=== PATIENT | female | born 1995 | race Caucasian/White ===

== ENCOUNTER 2024-06-06 14:45 | Emergency (ER) | payer OTHER, SELFPAY ==
[2024-06-06 15:05] VITALS: BP 135/90; PULSE 76; RESP 20; TEMP 36.2; O2SAT 100
--- NOTE | 2024-06-06 15:19 | ED.NECK ---
HPI - Neck Pain/Injury General Chief Complaint: Neck Pain/Injury Stated Complaint: neck pain Source: patient Mode of arrival: ambulatory Limitations: no limitations History of Present Illness HPI Narrative: 28 year female presented for complaint of left-sided neck pain. Onset 6 days. Endorses the pain radiates down to the hand and causes a tingling sensation at times. Has taken Tylenol and alternating ice/heat for pain. She states the pain was brought on when she had a severe coughing fit last week. Denies weakness, numbness or decreased range of motion to the upper extremities. Rates pain 7/10, and says it is not improving. Related Data Allergies Allergy/AdvReac Type Severity Reaction Status Date / Time No Known Allergies Allergy Verified 06/06/24 15:05 Review of Systems Review of Systems: CONSTITUTIONAL: Denies body aches, fever, chills, or sweats. EYES: Denies visual changes, redness, or discharge. ENT: Denies rhinorrhea, congestion, sore throat, or otalgia. CARDIOVASCULAR: Denies chest pain, palpitations, or edema. SKIN: Denies rash, itching, or wounds. MUSCULOSKELETAL: reports neck pain NEUROLOGIC: Denies headache, numbness, or weakness. All systems reviewed & are unremarkable except as noted in HPI and below PMFSH Comments At time of signature, I have reviewed and agree with nursing past medical, surgical, social and family history unless otherwise noted. Please see nursing chart for further information. There is no relevant family history pertinent to the presenting complaint Exam Narrative: GENERAL: Well-appearing,and in no acute distress. EYES: EOMI. No redness or drainage. Conjunctivae normal. ENT: Mucous membranes pink and moist. No rhinorrhea. NECK: slightly decreased AROM due to pain. No vpt. Nontender trapezius. CHEST: Clear to auscultation. HEART: Regular rate and rhythm. Normal peripheral pulses. EXTREMITIES: Normal range of motion. CMS intact to BUEs. SKIN: Warm, dry, no rash. Capillary refill normal. Normal skin turgor. NEURO: No focal deficits. Alert and oriented x3. Gait steady. PSYCH: Normal affect. Course Course Emergency Course: Patient is aware of diagnosis, understands and agrees to treatment plan. Anticipatory guidance given. Patient agrees to follow-up as directed and is aware of reasons to seek care at the emergency department. Portions of this record may have been created with voice recognition software Level of Care: Express Care Visit Vital Signs Vital signs: Vital Signs Temperature 97.2 F L 06/06/24 15:05 Pulse Rate 76 06/06/24 15:05 Respiratory Rate 20 06/06/24 15:05 Blood Pressure 135/90 06/06/24 15:05 Pulse Oximetry 100 06/06/24 15:05 Oxygen Delivery Room Air 06/06/24 15:05 Temperature 97.2 F L 06/06/24 15:05 Pulse Rate 76 06/06/24 15:05 Respiratory Rate 20 06/06/24 15:05 Blood Pressure 135/90 06/06/24 15:05 Pulse Oximetry 100 06/06/24 15:05 Oxygen Delivery Room Air 06/06/24 15:05 MDM - Neck Pain/Injury MDM Narrative Medical decision making narrative: Discussed physical exam findings. Advised supportive measures and signs/symptoms to go to the ER. Pt is appropriate for outpt treatment and f/u. Differential Diagnosis Differential diagnosis: Likely disc disorder of cervical region, whiplash injury to neck, closed subluxation of cervical spine, cervical radiculopathy, torticollis and strain of neck muscle Discharge Plan Discharge Clinical Impression: Cervical radiculopathy Patient Disposition: Home, Self-Care Condition: Stable Instructions: Cervical Radiculopathy (ED) Additional Instructions: Rest. Avoid pushing, pulling, lifting or anything that worsens the symptoms Tylenol 1000mg every 8 hours as needed Take the steroid as directed Cyclobenzaprine (Flexeril) is a muscle relaxer. Take it as directed. It can cause drowsiness so do not drive or operate machinery until you know how it makes you feel. Alternate ice/heat to the site. Lidocaine or salon pas pain patch or use pain cream like icy/hot or biofreeze. (do not apply ice/heat over pain cream or patch) Follow up with your primary care provider as needed Go to the ER for worsening symptoms or concerns Patient Language: Macedonian Prescriptions: New cyclobenzaprine 10 mg tablet 10 mg PO TID PRN (Reason: muscle spasm) Qty: 10 0RF methylprednisolone [Medrol (Omar)] 4 mg tablets,dose pack See Rx Instructions .ROUTE .COMPLEX Qty: 21 0RF Rx Instructions: orally per package directions Follow-up/Referrals: JAYY,PASCUAL SIM [Primary Care Provider] - Time of Disposition: 15:22
--- OUTSIDE RECORDS SUMMARY | 2024-06-06 17:37 | XMS_ITS | Data Portability ---
Author Organization [employer] , [facility] Address [address] [place] [address] Assessment No assessment recorded. Plan of Treatment Reminders Order Date Submit Date Provider Last Modified By Organization Details Last Modified Time Details Appointments None recorde dKrysta Lab CMP, serum or plasma 2021 [employer] [facility], [address] [place], [address], 13:56:59 uric acid, serum or plasma 2021 [facility], [address] [place], [address], 13:56:59 protein :creati nine ratio, urine 2021 [facility], [address] [place], [address], 2 13:57:00 CBC w/ auto diff 2021 [facility], [address] [place], [address], 2 13:57:00 ldh, serum or plasma 2021 [facility] [employer] [facility], [address] [place], [address], 13:56:58 CMP, serum or plasma 2021 022 [facility], [address] [place], [address], 2 23:11:06 uric acid, serum or plasma 2021 022 [email or web address] [facility] [facility] [facility], [address] [place], [address], 2 11:51:17 CBC w/ auto diff 2021 022 [facility], [address] [place], [address], 2 22:47:02 protein :creati nine ratio, urine 2021 022 [email or web address] [facility] [facility], [address] [place], [address], 2 11:51:17 ldh, serum or plasma 2021 022 [facility], [address] [place], [address], 2 11:51:17 CMP, serum or plasma 2021 022 [facility], [address] [place], [address], 2 07:06:21 CBC w/ auto diff 2021 022 [facility], [address] [place], [address], 2 07:06:22 protein :creati nine ratio, urine 2021 022 [facility], [address] [place], [address], 2 13:38:05 Referral None recorde d. Procedures None recorde d. Surgeries None recorde d. Imaging US, obstetr ic, biophys ical profile + non-str ess test 2021 022 [email or web address] [facility], [address] [place], [address], 21:01:39 US, obstetr ic, biophys ical profile 2021 022 [email or web address] [facility], [address] [facility], [place], [address], 13:43:40 US, obstetr ic, biophys ical profile 2021 022 [email or web address] [facility], [address] [place], [address], 15:43:22 Medication Orders Prenata l Vitamin s with Mineral s 28 mg iron-80 0 mcg tablet 2021 022 [employer] [id number], [address], [place], [id number], 12:07:10 Patient TargetsNo targets recorded. Patient Instructions Encounter Date Encounter Id Patient Instructions Last Modified By Organization Details Last Modified Time 02/13/2022 [id number] Care at Home With Your Baby: Care Instructions edgar Not available 02/17/2022 12:08:19 edinburgh depression scale* [email or web address] Not available 03/21/2022 15:22:28 control after counseling [email or web address] [employer] Not available 02/17/2022 12:08:18 Reason for Referral None Reported. Results Created Date Observation Date Name Description Value Unit Range Abnormal Flag Note LastModifiedBy Organization Detail LastModifiedTime 11/29/1911/29/2021 URIC ACID uric acid 3.6 mg/dL 2.5-7. 0 normal Thera peslime stroud t for gout patie nts: <6.0 mg/dL Not Available [email or web address] [facility] [address] [place], [address], 11/29/2021 14:11:01 11/29/19 22 11/29/2021 COMPR EHENS STEVE METAB OLIC PANEL glucose 73 mg/dL 65-99 normal Fasti ng refer ence inter carson Not Available [address], [address], 11/29/2021 14:11:02 11/29/19 22 11/29/2021 COMPR EHENS STEVE METAB OLIC PANEL urea nitrogen (BUN) 8 mg/dL 7-25 normal Not Available [address], [address], 11/29/2021 14:11:02 11/29/19 22 11/29/2021 COMPR EHENS STEVE METAB OLIC PANEL creatinine 0.58 mg/dL 0.50-0 .96 normal Not Available [address], [address], 11/29/2021 14:11:02 11/29/19 22 11/29/2021 COMPR EHENS STEVE METAB OLIC PANEL eGFR 127 mL/mi n/1.7 3m2 > or = 60 normal The eGFR is based on the CKD-E PI 2020 equat ion. To calcu late the new eGFR from a previ ous Creat inine or Cysta tin C resul t, go to https :[email or web address] [email or web address]/pierce cason s/ kdoqi /gfr% 5Fcal culat or Not Available [address], [address], 11/29/2021 14:11:02 11/29/19 22 11/29/2021 COMPR EHENS STEVE METAB OLIC PANEL BUN/creatini ne ratio NOT APPLIC ABLE (calc ) 6-22 Not Available [address], [address], 11/29/2021 14:11:02 11/29/19 22 11/29/2021 COMPR EHENS STEVE METAB OLIC PANEL sodium 139 mmol/ L 135-14 6 normal Not Available [address], [address], 11/29/2021 14:11:02 11/29/19 22 11/29/2021 COMPR EHENS STEVE METAB OLIC PANEL potassium 4.0 mmol/ L 3.5-5. 3 normal Not Available [address], [address], 11/29/2021 14:11:02 11/29/19 22 11/29/2021 COMPR EHENS TSEVE METAB OLIC PANEL chloride 106 mmol/ L 98-110 normal Not Available [address], [address], 11/29/2021 14:11:02 11/29/19 22 11/29/2021 COMPR EHENS STEVE METAB OLIC PANEL carbon dioxide 21 mmol/ L 20-32 normal Not Available [address], [address], 11/29/2021 14:11:02 11/29/19 22 11/29/2021 COMPR EHENS STEVE METAB OLIC PANEL calcium 9.4 mg/dL 8.6-10 .2 normal Not Available [address], [address], 11/29/2021 14:11:02 11/29/19 22 11/29/2021 COMPR EHENS STEVE METAB OLIC PANEL protein, total 6.7 g/dL 6.1-8. 1 normal Not Available [address], [address], 11/29/2021 14:11:02 11/29/19 22 11/29/2021 COMPR EHENS STEVE METAB OLIC PANEL albumin 3.7 g/dL 3.6-5. 1 normal Not Available [address], [address], 11/29/2021 14:11:02 11/29/19 22 11/29/2021 COMPR EHENS STEVE METAB OLIC PANEL globulin 3.0 g/dL_ (calc ) 1.9-3. 7 normal Not Available [address], [address], 11/29/2021 14:11:02 11/29/19 22 11/29/2021 COMPR EHENS STEVE METAB OLIC PANEL albumin/glob ulin ratio 1.2 (calc ) 1.0-2. 5 normal Not Available [address], [address], 11/29/2021 14:11:02 11/29/19 22 11/29/2021 COMPR EHENS STEVE METAB OLIC PANEL bilirubin, total 0.4 mg/dL 0.2-1. 2 normal Not Available [address], [address], 11/29/2021 14:11:02 11/29/19 22 11/29/2021 COMPR EHENS STEVE METAB OLIC PANEL alkaline phosphatase 83 U/L 31-125 normal Not Available [address], [address], 11/29/2021 14:11:02 11/29/19 22 11/29/2021 COMPR EHENS STEVE METAB OLIC PANEL AST 17 U/L 10-30 normal Not Available [address], [address], 11/29/2021 14:11:02 11/29/19 22 11/29/2021 COMPR EHENS STEVE METAB OLIC PANEL ALT 13 U/L 6-29 normal Not Available [address], [address], 11/29/2021 14:11:02 11/29/19 22 11/29/2021 CBC (INCL UDES DIFF/ PLT) white blood cell count 9.3 thous and/u L 3.8-10 .8 normal Not Available [address], [address], 11/29/2021 14:11:02 11/29/19 22 11/29/2021 CBC (INCL UDES DIFF/ PLT) red blood cell count 4.08 feliciano on/uL 3.80-5 .10 normal Not Available [address], [address], 11/29/2021 14:11:02 11/29/19 22 11/29/2021 CBC (INCL UDES DIFF/ PLT) hemoglobin 12.2 g/dL 11.7-1 5.5 normal Not Available [address], [address], 11/29/2021 14:11:02 11/29/19 22 11/29/2021 CBC (INCL UDES DIFF/ PLT) hematocrit 36.2 % 35.0-4 5.0 normal Not Available [address], [address], 11/29/2021 14:11:02 11/29/19 22 11/29/2021 CBC (INCL UDES DIFF/ PLT) MCV 88.7 fL 80.0-1 00.0 normal Not Available [address], [address], 11/29/2021 14:11:02 11/29/19 22 11/29/2021 CBC (INCL UDES DIFF/ PLT) MCH 29.9 pg 27.0-3 3.0 normal Not Available [address], [address], 11/29/2021 14:11:02 11/29/19 22 11/29/2021 CBC (INCL UDES DIFF/ PLT) MCHC 33.7 g/dL 32.0-3 6.0 normal Not Available [address], [address], 11/29/2021 14:11:02 11/29/19 22 11/29/2021 CBC (INCL UDES DIFF/ PLT) RDW 13.1 % 11.0-1 5.0 normal Not Available [address], [address], 11/29/2021 14:11:02 11/29/19 22 11/29/2021 CBC (INCL UDES DIFF/ PLT) platelet count 304 thous and/u L 140-40 0 normal Not Available [address], [address], 11/29/2021 14:11:02 11/29/19 22 11/29/2021 CBC (INCL UDES DIFF/ PLT) MPV 10.1 fL 7.5-12 .5 normal Not Available [address], [address], 11/29/2021 14:11:02 11/29/19 22 11/29/2021 CBC (INCL UDES DIFF/ PLT) absolute neutrophils 7096 cells /uL 1500-7 800 normal Not Available [address], [address], 11/29/2021 14:11:02 11/29/19 22 11/29/2021 CBC (INCL UDES DIFF/ PLT) absolute lymphocytes 1181 cells /uL 850-39 00 normal Not Available [address], [address], 11/29/2021 14:11:02 11/29/19 22 11/29/2021 CBC (INCL UDES DIFF/ PLT) absolute monocytes 902 cells /uL 200-95 0 normal Not Available [address], [address], 11/29/2021 14:11:02 11/29/19 22 11/29/2021 CBC (INCL UDES DIFF/ PLT) absolute eosinophils 93 cells /uL 15-500 normal Not Available [address], [address], 11/29/2021 14:11:02 11/29/19 22 11/29/2021 CBC (INCL UDES DIFF/ PLT) absolute basophils 28 cells /uL 0-200 normal Not Available [facility] [address], [address], 11/29/2021 14:11:02 11/29/19 22 11/29/2021 CBC (INCL UDES DIFF/ PLT) neutrophils 76.3 % normal Not Available [facility] [address], [address], 11/29/2021 14:11:02 11/29/19 22 11/29/2021 CBC (INCL UDES DIFF/ PLT) lymphocytes 12.7 % normal Not Available [facility] [address], [address], 11/29/2021 14:11:02 11/29/19 22 11/29/2021 CBC (INCL UDES DIFF/ PLT) monocytes 9.7 % normal Not Available [facility] [address], [address], 11/29/2021 14:11:02 11/29/19 22 11/29/2021 CBC (INCL UDES DIFF/ PLT) eosinophils 1.0 % normal Not Available [facility] [address], [address], 11/29/2021 14:11:02 11/29/19 22 11/29/2021 CBC (INCL UDES DIFF/ PLT) basophils 0.3 % normal Not Available [facility] [address], [address], 11/29/2021 14:11:02 11/29/19 22 11/29/2021 PROTE IN, TOTAL W/CRE AT, RANDO M URINE creatinine, random urine 50 mg/dL 20-275 normal Not Available [address], [address], 11/29/2021 17:04:17 11/29/19 22 11/29/2021 PROTE IN, TOTAL W/CRE AT, RANDO M URINE protein/crea tinine ratio 180 mg/g_ creat 21-161 high Not Available [address], [address], 11/29/2021 17:04:17 11/29/19 22 11/29/2021 PROTE IN, TOTAL W/CRE AT, RANDO M URINE protein/crea tinine ratio 0.180 mg/mg _crea t 0.021- 0.161 high Not Available [address], [address], 11/29/2021 17:04:17 11/29/19 22 11/29/2021 PROTE IN, TOTAL W/CRE AT, RANDO M URINE protein, total, random ur 9 mg/dL 5-24 normal Not Available [address], [address], 11/29/2021 17:04:17 12/06/19 22 12/06/2021 COMPR EHENS STEVE METAB OLIC PANEL glucose 83 mg/dL 65-99 normal Fasti ng refer ence inter carson Not Available [address], [address], 12/06/2021 07:18:56 12/06/19 22 12/06/2021 COMPR EHENS STEVE METAB OLIC PANEL urea nitrogen (BUN) 8 mg/dL 7-25 normal Not Available [address], [address], 12/06/2021 07:18:56 12/06/19 22 12/06/2021 COMPR EHENS STEVE METAB OLIC PANEL creatinine 0.63 mg/dL 0.50-0 .96 normal Not Available [address], [address], 12/06/2021 07:18:56 12/06/19 22 12/06/2021 COMPR EHENS STEVE METAB OLIC PANEL eGFR 125 mL/mi n/1.7 3m2 > or = 60 normal The eGFR is based on the CKD-E PI 2020 equat ion. To calcu late the new eGFR from a previ ous Creat inine or Cysta tin C resul t, go to https :[email or web address] sawant.nuvia schultz.[place]/pierce cason s/ kdoqi /gfr% 5Fcal culat or Not Available [address], [address], 12/06/2021 07:18:56 12/06/19 22 12/06/2021 COMPR EHENS STEVE METAB OLIC PANEL BUN/creatini ne ratio NOT APPLIC ABLE (calc ) 6-22 Not Available [address], [address], 12/06/2021 07:18:56 12/06/19 22 12/06/2021 COMPR EHENS STEVE METAB OLIC PANEL sodium 138 mmol/ L 135-14 6 normal Not Available [address], [address], 12/06/2021 07:18:56 12/06/19 22 12/06/2021 COMPR EHENS STEVE METAB OLIC PANEL potassium 4.0 mmol/ L 3.5-5. 3 normal Not Available [address], [address], 12/06/2021 07:18:56 12/06/19 22 12/06/2021 COMPR EHENS STEVE METAB OLIC PANEL chloride 105 mmol/ L 98-110 normal Not Available [address], [address], 12/06/2021 07:18:56 12/06/19 22 12/06/2021 COMPR EHENS STEVE METAB OLIC PANEL carbon dioxide 23 mmol/ L 20-32 normal Not Available [address], [address], 12/06/2021 07:18:56 12/06/19 22 12/06/2021 COMPR EHENS STEVE METAB OLIC PANEL calcium 9.6 mg/dL 8.6-10 .2 normal Not Available [address], [address], 12/06/2021 07:18:56 12/06/19 22 12/06/2021 COMPR EHENS STEVE METAB OLIC PANEL protein, total 6.6 g/dL 6.1-8. 1 normal Not Available [address], [address], 12/06/2021 07:18:56 12/06/19 22 12/06/2021 COMPR EHENS STEVE METAB OLIC PANEL albumin 3.6 g/dL 3.6-5. 1 normal Not Available [address], [address], 12/06/2021 07:18:56 12/06/19 22 12/06/2021 COMPR EHENS STEVE METAB OLIC PANEL globulin 3.0 g/dL_ (calc ) 1.9-3. 7 normal Not Available [address], [address], 12/06/2021 07:18:56 12/06/19 22 12/06/2021 COMPR EHENS STEVE METAB OLIC PANEL albumin/glob ulin ratio 1.2 (calc ) 1.0-2. 5 normal Not Available [address], [address], 12/06/2021 07:18:56 12/06/19 22 12/06/2021 COMPR EHENS STEVE METAB OLIC PANEL bilirubin, total 0.3 mg/dL 0.2-1. 2 normal Not Available [address], [address], 12/06/2021 07:18:56 12/06/19 22 12/06/2021 COMPR EHENS STEVE METAB OLIC PANEL alkaline phosphatase 91 U/L 31-125 normal Not Available [facility] [address], [address], 12/06/2021 07:18:56 12/06/19 22 12/06/2021 COMPR EHENS STEVE METAB OLIC PANEL AST 20 U/L 10-30 normal Not Available [address], [address], 12/06/2021 07:18:56 12/06/19 22 12/06/2021 COMPR EHENS STEVE METAB OLIC PANEL ALT 14 U/L 6-29 normal Not Available [address], [address], 12/06/2021 07:18:56 12/06/19 22 12/06/2021 CBC (INCL UDES DIFF/ PLT) white blood cell count 9.6 thous and/u L 3.8-10 .8 normal Not Available [address], [address], 12/06/2021 07:18:56 12/06/19 22 12/06/2021 CBC (INCL UDES DIFF/ PLT) red blood cell count 4.02 feliciano on/uL 3.80-5 .10 normal Not Available [address], [address], 12/06/2021 07:18:56 12/06/19 22 12/06/2021 CBC (INCL UDES DIFF/ PLT) hemoglobin 11.5 g/dL 11.7-1 5.5 low Not Available [address], [address], 12/06/2021 07:18:56 12/06/1912/06/2021 CBC (INCL UDES DIFF/ PLT) hematocrit 35.2 % 35.0-4 5.0 normal Not Available [address], [address], 12/06/2021 07:18:56 12/06/19 22 12/06/2021 CBC (INCL UDES DIFF/ PLT) MCV 87.6 fL 80.0-1 00.0 normal Not Available [facility] [address], [address], 12/06/2021 07:18:56 12/06/19 22 12/06/2021 CBC (INCL UDES DIFF/ PLT) MCH 28.6 pg 27.0-3 3.0 normal Not Available [address], [address], 12/06/2021 07:18:56 12/06/19 22 12/06/2021 CBC (INCL UDES DIFF/ PLT) MCHC 32.7 g/dL 32.0-3 6.0 normal Not Available [address], [address], 12/06/2021 07:18:56 12/06/1912/06/2021 CBC (INCL UDES DIFF/ PLT) RDW 13.2 % 11.0-1 5.0 normal Not Available [address], [address], 12/06/2021 07:18:56 12/06/1912/06/2021 CBC (INCL UDES DIFF/ PLT) platelet count 314 thous and/u L 140-40 0 normal Not Available [address], [address], 12/06/2021 07:18:56 08/18/20 22 12/06/2021 CBC (INCL UDES DIFF/ PLT) MPV 10.0 fL 7.5-12 .5 normal Not Available [address], [address], 12/06/2021 07:18:56 12/06/19 22 12/06/2021 CBC (INCL UDES DIFF/ PLT) absolute neutrophils 6922 cells /uL 1500-7 800 normal Not Available [address], [address], 12/06/2021 07:18:56 12/06/19 22 12/06/2021 CBC (INCL UDES DIFF/ PLT) absolute lymphocytes 1411 cells /uL 850-39 00 normal Not Available [address], [address], 12/06/2021 07:18:56 12/06/19 22 12/06/2021 CBC (INCL UDES DIFF/ PLT) absolute monocytes 1152 cells /uL 200-95 0 high Not Available [address], [address], 12/06/2021 07:18:56 12/06/19 22 12/06/2021 CBC (INCL UDES DIFF/ PLT) absolute eosinophils 77 cells /uL 15-500 normal Not Available [address], [address], 12/06/2021 07:18:56 12/06/19 22 12/06/2021 CBC (INCL UDES DIFF/ PLT) absolute basophils 38 cells /uL 0-200 normal Not Available [address], [address], 12/06/2021 07:18:56 12/06/19 22 12/06/2021 CBC (INCL UDES DIFF/ PLT) neutrophils 72.1 % normal Not Available [address], [address], 12/06/2021 07:18:56 12/06/19 22 12/06/2021 CBC (INCL UDES DIFF/ PLT) lymphocytes 14.7 % normal Not Available [address], [address], 12/06/2021 07:18:56 12/06/19 22 12/06/2021 CBC (INCL UDES DIFF/ PLT) monocytes 12.0 % normal Not Available [facility] [address], [address], 12/06/2021 07:18:56 12/06/19 22 12/06/2021 CBC (INCL UDES DIFF/ PLT) eosinophils 0.8 % normal Not Available [address], [address], 12/06/2021 07:18:56 12/06/19 22 12/06/2021 CBC (INCL UDES DIFF/ PLT) basophils 0.4 % normal Not Available [address], [address], 12/06/2021 07:18:56 12/13/19 22 12/13/2021 COMPR EHENS STEVE METAB OLIC PANEL glucose 104 mg/dL 65-99 high Fasti ng refer ence inter carson For someo ne witho ut known diabe stewart, a gluco se value betwe en 100 and 125 mg/dL is consi stent with predi abete s and shoul d be confi rmed with a follo w-up test. Not Available [facility] [address], [address], 12/13/2021 07:25:39 12/13/19 22 12/13/2021 COMPR EHENS STEVE METAB OLIC PANEL urea nitrogen (BUN) 8 mg/dL 7-25 normal Not Available [address], [address], 12/13/2021 07:25:39 12/13/19 22 12/13/2021 COMPR EHENS STEVE METAB OLIC PANEL creatinine 0.59 mg/dL 0.50-0 .96 normal Not Available [address], [address], 12/13/2021 07:25:39 12/13/19 22 12/13/2021 COMPR EHENS STEVE METAB OLIC PANEL eGFR 126 mL/mi n/1.7 3m2 > or = 60 normal The eGFR is based on the CKD-E PI 2020 equat ion. To calcu late the new eGFR from a previ ous Creat inine or Cysta tin C resul t, go to https ://mecca rock/pierce cason s/ kdoqi /gfr% 5Fcal culat or Not Available [address], [address], 12/13/2021 07:25:39 12/13/19 22 12/13/2021 COMPR EHENS STEVE METAB OLIC PANEL BUN/creatini ne ratio NOT APPLIC ABLE (calc ) 6-22 Not Available [address], [address], 12/13/2021 07:25:39 12/13/19 22 12/13/2021 COMPR EHENS STEVE METAB OLIC PANEL sodium 138 mmol/ L 135-14 6 normal Not Available [address], [address], 12/13/2021 07:25:39 12/13/19 22 12/13/2021 COMPR EHENS STEVE METAB OLIC PANEL potassium 3.9 mmol/ L 3.5-5. 3 normal Not Available [address], [address], 12/13/2021 07:25:39 12/13/19 22 12/13/2021 COMPR EHENS STEVE METAB OLIC PANEL chloride 104 mmol/ L 98-110 normal Not Available [address], [address], 12/13/2021 07:25:39 12/13/19 22 12/13/2021 COMPR EHENS STEVE METAB OLIC PANEL carbon dioxide 24 mmol/ L 20-32 normal Not Available [address], [address], 12/13/2021 07:25:39 12/13/19 22 12/13/2021 COMPR EHENS STEVE METAB OLIC PANEL calcium 9.2 mg/dL 8.6-10 .2 normal Not Available [address], [address], 12/13/2021 07:25:39 12/13/19 22 12/13/2021 COMPR EHENS STEVE METAB OLIC PANEL protein, total 6.4 g/dL 6.1-8. 1 normal Not Available [address], [address], 12/13/2021 07:25:39 12/13/19 22 12/13/2021 COMPR EHENS STEVE METAB OLIC PANEL albumin 3.5 g/dL 3.6-5. 1 low Not Available [address], [address], 12/13/2021 07:25:39 12/13/19 22 12/13/2021 COMPR EHENS STEVE METAB OLIC PANEL globulin 2.9 g/dL_ (calc ) 1.9-3. 7 normal Not Available [address], [address], 12/13/2021 07:25:39 12/13/19 22 12/13/2021 COMPR EHENS STEVE METAB OLIC PANEL albumin/glob ulin ratio 1.2 (calc ) 1.0-2. 5 normal Not Available [address], [address], 12/13/2021 07:25:39 12/13/19 22 12/13/2021 COMPR EHENS STEVE METAB OLIC PANEL bilirubin, total 0.3 mg/dL 0.2-1. 2 normal Not Available [address], [address], 12/13/2021 07:25:39 12/13/19 22 12/13/2021 COMPR EHENS STEVE METAB OLIC PANEL alkaline phosphatase 93 U/L 31-125 normal Not Available [address], [address], 12/13/2021 07:25:39 12/13/19 22 12/13/2021 COMPR EHENS STEVE METAB OLIC PANEL AST 14 U/L 10-30 normal Not Available [address], [address], 12/13/2021 07:25:39 12/13/19 22 12/13/2021 COMPR EHENS STEVE METAB OLIC PANEL ALT 13 U/L 6-29 normal Not Available [address], [address], 12/13/2021 07:25:39 12/13/19 22 12/13/2021 CBC (INCL UDES DIFF/ PLT) white blood cell count 11.2 thous and/u L 3.8-10 .8 high Not Available [address], [address], 12/13/2021 07:25:40 12/13/19 22 12/13/2021 CBC (INCL UDES DIFF/ PLT) red blood cell count 3.94 feliciano on/uL 3.80-5 .10 normal Not Available [address], [address], 12/13/2021 07:25:40 12/13/19 22 12/13/2021 CBC (INCL UDES DIFF/ PLT) hemoglobin 11.5 g/dL 11.7-1 5.5 low Not Available [address], [address], 12/13/2021 07:25:40 12/13/19 22 12/13/2021 CBC (INCL UDES DIFF/ PLT) hematocrit 36.0 % 35.0-4 5.0 normal Not Available [address], [address], 12/13/2021 07:25:40 12/13/19 22 12/13/2021 CBC (INCL UDES DIFF/ PLT) MCV 91.4 fL 80.0-1 00.0 normal Not Available [address], [address], 12/13/2021 07:25:40 12/13/19 22 12/13/2021 CBC (INCL UDES DIFF/ PLT) MCH 29.2 pg 27.0-3 3.0 normal Not Available [address], [address], 12/13/2021 07:25:40 12/13/19 22 12/13/2021 CBC (INCL UDES DIFF/ PLT) MCHC 31.9 g/dL 32.0-3 6.0 low Not Available [address], [address], 12/13/2021 07:25:40 12/13/19 22 12/13/2021 CBC (INCL UDES DIFF/ PLT) RDW 13.1 % 11.0-1 5.0 normal Not Available [address], [address], 12/13/2021 07:25:40 12/13/19 22 12/13/2021 CBC (INCL UDES DIFF/ PLT) platelet count 268 thous and/u L 140-40 0 normal Not Available [address], [address], 12/13/2021 07:25:40 12/13/19 22 12/13/2021 CBC (INCL UDES DIFF/ PLT) MPV 10.0 fL 7.5-12 .5 normal Not Available [address], [address], 12/13/2021 07:25:40 12/13/19 22 12/13/2021 CBC (INCL UDES DIFF/ PLT) absolute neutrophils 8702 cells /uL 1500-7 800 high Not Available [address], [address], 12/13/2021 07:25:40 12/13/19 22 12/13/2021 CBC (INCL UDES DIFF/ PLT) absolute lymphocytes 1355 cells /uL 850-39 00 normal Not Available [address], [address], 12/13/2021 07:25:40 12/13/19 22 12/13/2021 CBC (INCL UDES DIFF/ PLT) absolute monocytes 974 cells /uL 200-95 0 high Not Available [address], [id number], 12/13/2021 07:25:40 12/13/19 22 12/13/2021 CBC (INCL UDES DIFF/ PLT) absolute eosinophils 123 cells /uL 15-500 normal Not Available [address], [address], 12/13/2021 07:25:40 12/13/19 22 12/13/2021 CBC (INCL UDES DIFF/ PLT) absolute basophils 45 cells /uL 0-200 normal Not Available [address], [address], 12/13/2021 07:25:40 12/13/19 22 12/13/2021 CBC (INCL UDES DIFF/ PLT) neutrophils 77.7 % normal Not Available [address], [address], 12/13/2021 07:25:40 12/13/19 22 12/13/2021 CBC (INCL UDES DIFF/ PLT) lymphocytes 12.1 % normal Not Available [address], [address], 12/13/2021 07:25:40 12/13/19 22 12/13/2021 CBC (INCL UDES DIFF/ PLT) monocytes 8.7 % normal Not Available [facility] [address], [address], 12/13/2021 07:25:40 12/13/19 22 12/13/2021 CBC (INCL UDES DIFF/ PLT) eosinophils 1.1 % normal Not Available [address], [address], 12/13/2021 07:25:40 12/13/19 22 12/13/2021 CBC (INCL UDES DIFF/ PLT) basophils 0.4 % normal Not Available [address], [address], 12/13/2021 07:25:40 12/13/19 22 12/14/2021 PROTE IN, TOTAL W/CRE AT, 24 HOUR URINE creatinine, 24 hour urine 1.80 g/24_ h 0.50-2 .15 normal Not Available [address], [address], 12/14/2021 15:51:41 12/13/19 22 12/14/2021 PROTE IN, TOTAL W/CRE AT, 24 HOUR URINE protein/crea tinine ratio 129 mg/g_ creat < or = 114 high Not Available [address], [address], 12/14/2021 15:51:41 12/13/19 22 12/14/2021 PROTE IN, TOTAL W/CRE AT, 24 HOUR URINE protein/crea tinine ratio 0.129 mg/mg _crea t < or = 0.114 high Not Available [address], [address], 12/14/2021 15:51:41 12/13/19 22 12/14/2021 PROTE IN, TOTAL W/CRE AT, 24 HOUR URINE protein, total, 24 HR ur 232 mg/24 _h <150 high URINE VOLUM E: 2900/ 24 Not Available [address], [address], 12/14/2021 15:51:41 12/18/19 22 12/20/2021 STREP TOCOC CUS, GROUP B CULTU RE streptococcu s, group B culture SEE NOTE STREP TOCOC CUS, GROUP B CULTU RE Micro Numbe r: [id number] Test Statu s: Final Speci men Sourc e: Vagin al/an orect al Speci men Quali ty: Adequ ate Resul t: No group B Strep tococ cus isola bijal Note per CDC guide lines optim al recov annemarie is achie velasquez by swabb ing both the lower vagin a and rectu m (thro ugh the anal sphin cter) . Not Available [address], [address], 12/20/2021 10:32:52 12/25/19 22 12/25/2021 COMPR EHENS STEVE METAB OLIC PANEL glucose 98 mg/dL 65-99 normal Fasti ng refer ence inter carson Not Available [address] [place], [address], 12/25/2021 07:06:21 12/25/19 22 12/25/2021 COMPR EHENS STEVE METAB OLIC PANEL urea nitrogen (BUN) 8 mg/dL 7-25 normal Not Available [address], [address], 12/25/2021 07:06:21 12/25/19 22 12/25/2021 COMPR EHENS STEVE METAB OLIC PANEL creatinine 0.55 mg/dL 0.50-0 .96 normal Not Available [address], [address], 12/25/2021 07:06:21 12/25/19 22 12/25/2021 COMPR EHENS STEVE METAB OLIC PANEL eGFR 128 mL/mi n/1.7 3m2 > or = 60 normal The eGFR is based on the CKD-E PI 2020 equat ion. To calcu late the new eGFR from a previ ous Creat inine or Cysta tin C resul t, go to https :[email or web address] [email or web address]/pierce cason s/ kdoqi /gfr% 5Fcal culat or Not Available [address] [address] [place], [address], 12/25/2021 07:06:21 12/25/19 22 12/25/2021 COMPR EHENS STEVE METAB OLIC PANEL BUN/creatini ne ratio NOT APPLIC ABLE (calc ) 6-22 Not Available [address], [address], 12/25/2021 07:06:21 12/25/19 22 12/25/2021 COMPR EHENS STEVE METAB OLIC PANEL sodium 137 mmol/ L 135-14 6 normal Not Available [address], [address], 12/25/2021 07:06:21 12/25/19 22 12/25/2021 COMPR EHENS STEVE METAB OLIC PANEL potassium 3.9 mmol/ L 3.5-5. 3 normal Not Available [address], [address], 12/25/2021 07:06:21 12/25/19 22 12/25/2021 COMPR EHENS STEVE METAB OLIC PANEL chloride 105 mmol/ L 98-110 normal Not Available [address], [address], 12/25/2021 07:06:21 12/25/19 22 12/25/2021 COMPR EHENS STEVE METAB OLIC PANEL carbon dioxide 23 mmol/ L 20-32 normal Not Available [address], [address], 12/25/2021 07:06:21 12/25/19 22 12/25/2021 COMPR EHENS STEVE METAB OLIC PANEL calcium 9.1 mg/dL 8.6-10 .2 normal Not Available [address], [address], 12/25/2021 07:06:21 12/25/19 22 12/25/2021 COMPR EHENS STEVE METAB OLIC PANEL protein, total 6.3 g/dL 6.1-8. 1 normal Not Available [address], [address], 12/25/2021 07:06:21 12/25/19 22 12/25/2021 COMPR EHENS STEVE METAB OLIC PANEL albumin 3.4 g/dL 3.6-5. 1 low Not Available [address], [address], 12/25/2021 07:06:21 12/25/19 22 12/25/2021 COMPR EHENS STEVE METAB OLIC PANEL globulin 2.9 g/dL_ (calc ) 1.9-3. 7 normal Not Available [address], [address], 12/25/2021 07:06:21 12/25/19 22 12/25/2021 COMPR EHENS STEVE METAB OLIC PANEL albumin/glob ulin ratio 1.2 (calc ) 1.0-2. 5 normal Not Available [address], [address], 12/25/2021 07:06:21 12/25/19 22 12/25/2021 COMPR EHENS STEVE METAB OLIC PANEL bilirubin, total 0.3 mg/dL 0.2-1. 2 normal Not Available [address], [address], 12/25/2021 07:06:21 12/25/19 22 12/25/2021 COMPR EHENS STEVE METAB OLIC PANEL alkaline phosphatase 97 U/L 31-125 normal Not Available [address], [address], 12/25/2021 07:06:21 12/25/19 22 12/25/2021 COMPR EHENS STEVE METAB OLIC PANEL AST 18 U/L 10-30 normal Not Available [address], [address], 12/25/2021 07:06:21 12/25/19 22 12/25/2021 COMPR EHENS STEVE METAB OLIC PANEL ALT 14 U/L 6-29 normal Not Available [address], [address], 12/25/2021 07:06:21 12/25/19 22 12/25/2021 CBC (INCL UDES DIFF/ PLT) white blood cell count 9.2 thous and/u L 3.8-10 .8 normal Not Available [address], [address], 12/25/2021 07:06:22 12/25/19 22 12/25/2021 CBC (INCL UDES DIFF/ PLT) red blood cell count 3.88 feliciano on/uL 3.80-5 .10 normal Not Available [address], [address], 12/25/2021 07:06:22 12/25/19 22 12/25/2021 CBC (INCL UDES DIFF/ PLT) hemoglobin 11.7 g/dL 11.7-1 5.5 normal Not Available [address], [address], 12/25/2021 07:06:22 12/25/1912/25/2021 CBC (INCL UDES DIFF/ PLT) hematocrit 33.9 % 35.0-4 5.0 low Not Available [address], [address], 12/25/2021 07:06:22 12/25/1912/25/2021 CBC (INCL UDES DIFF/ PLT) MCV 87.4 fL 80.0-1 00.0 normal Not Available [address], [address], 12/25/2021 07:06:22 12/25/1912/25/2021 CBC (INCL UDES DIFF/ PLT) MCH 30.2 pg 27.0-3 3.0 normal Not Available [address], [address], 12/25/2021 07:06:22 12/25/1912/25/2021 CBC (INCL UDES DIFF/ PLT) MCHC 34.5 g/dL 32.0-3 6.0 normal Not Available [address], [address], 12/25/2021 07:06:22 12/25/1912/25/2021 CBC (INCL UDES DIFF/ PLT) RDW 13.6 % 11.0-1 5.0 normal Not Available [address], [address], 12/25/2021 07:06:22 12/25/1912/25/2021 CBC (INCL UDES DIFF/ PLT) platelet count 281 thous and/u L 140-40 0 normal Not Available [address], [address], 12/25/2021 07:06:22 12/25/19 22 12/25/2021 CBC (INCL UDES DIFF/ PLT) MPV 10.0 fL 7.5-12 .5 normal Not Available [address], [address], 12/25/2021 07:06:22 12/25/19 22 12/25/2021 CBC (INCL UDES DIFF/ PLT) absolute neutrophils 6891 cells /uL 1500-7 800 normal Not Available [address], [address], 12/25/2021 07:06:22 12/25/19 22 12/25/2021 CBC (INCL UDES DIFF/ PLT) absolute lymphocytes 1260 cells /uL 850-39 00 normal Not Available [address], [address], 12/25/2021 07:06:22 12/25/19 22 12/25/2021 CBC (INCL UDES DIFF/ PLT) absolute monocytes 911 cells /uL 200-95 0 normal Not Available [address], [address], 12/25/2021 07:06:22 12/25/19 22 12/25/2021 CBC (INCL UDES DIFF/ PLT) absolute eosinophils 101 cells /uL 15-500 normal Not Available [address], [address], 12/25/2021 07:06:22 12/25/19 22 12/25/2021 CBC (INCL UDES DIFF/ PLT) absolute basophils 37 cells /uL 0-200 normal Not Available [address], [address], 12/25/2021 07:06:22 12/25/19 22 12/25/2021 CBC (INCL UDES DIFF/ PLT) neutrophils 74.9 % normal Not Available [facility] [address], [address], 12/25/2021 07:06:22 12/25/19 22 12/25/2021 CBC (INCL UDES DIFF/ PLT) lymphocytes 13.7 % normal Not Available [address], [address], 12/25/2021 07:06:22 12/25/19 22 12/25/2021 CBC (INCL UDES DIFF/ PLT) monocytes 9.9 % normal Not Available [address], [address], 12/25/2021 07:06:22 12/25/19 22 12/25/2021 CBC (INCL UDES DIFF/ PLT) eosinophils 1.1 % normal Not Available [address], [address], 12/25/2021 07:06:22 12/25/19 22 12/25/2021 CBC (INCL UDES DIFF/ PLT) basophils 0.4 % normal Not Available [address], [address], 12/25/2021 07:06:22 12/25/19 22 12/26/2021 PROTE IN, TOTAL W/CRE AT, RANDO URINE creatinine, random urine 63 mg/dL 20-275 normal Not Available [address], [address], 12/26/2021 13:38:05 12/25/19 22 12/26/2021 PROTE IN, TOTAL W/CRE AT, RANDO M URINE protein/crea tinine ratio 159 mg/g_ creat 24-184 normal Not Available [address], [address], 12/26/2021 13:38:05 12/25/19 22 12/26/2021 PROTE IN, TOTAL W/CRE AT, RANDO M URINE protein/crea tinine ratio 0.159 mg/mg _crea t 0.024- 0.184 normal Not Available [address], [address], 12/26/2021 13:38:05 12/25/19 22 12/26/2021 PROTE IN, TOTAL W/CRE AT, RANDO M URINE protein, total, random ur 10 mg/dL 5-24 normal Not Available [address], [address], 12/26/2021 13:38:05 01/03/20 22 01/03/2022 LD LD 135 U/L 100-20 0 normal Not Available [address], [address], 01/03/2022 13:56:58 01/03/20 22 01/03/2022 URIC ACID uric acid 4.5 mg/dL 2.5-7. 0 normal Thera neetu stroud t for gout patie nts: <6.0 mg/dL Not Available [address], [address], 01/03/2022 13:56:58 01/03/20 22 01/03/2022 COMPR EHENS STEVE METAB OLIC PANEL glucose 67 mg/dL 65-99 normal Fasti ng refer ence inter carson Not Available [address], [address], 01/03/2022 13:56:59 01/03/20 22 01/03/2022 COMPR EHENS STEVE METAB OLIC PANEL urea nitrogen (BUN) 8 mg/dL 7-25 normal Not Available [address], [address], 01/03/2022 13:56:59 01/03/20 22 01/03/2022 COMPR EHENS STEVE METAB OLIC PANEL creatinine 0.58 mg/dL 0.50-0 .96 normal Not Available [address], [address], 01/03/2022 13:56:59 01/03/20 22 01/03/2022 COMPR EHENS STEVE METAB OLIC PANEL eGFR 126 mL/mi n/1.7 3m2 > or = 60 normal The eGFR is based on the CKD-E PI 2020 equat ion. To calcu late the new eGFR from a previ ous Creat inine or Cysta tin C resul t, go to https ://mecca w.nuvia schultz.o pranav/pr ofess ional s/ kdoqi /gfr% 5Fcal culat or Not Available [address], [address], 01/03/2022 13:56:59 01/03/20 22 01/03/2022 COMPR EHENS STEVE METAB OLIC PANEL BUN/creatini ne ratio NOT APPLIC ABLE (calc ) 6-22 Not Available [address], [address], 01/03/2022 13:56:59 01/03/20 22 01/03/2022 COMPR EHENS STEVE METAB OLIC PANEL sodium 135 mmol/ L 135-14 6 normal Not Available [address], [address], 01/03/2022 13:56:59 01/03/20 22 01/03/2022 COMPR EHENS STEVE METAB OLIC PANEL potassium 4.1 mmol/ L 3.5-5. 3 normal Not Available [address], [address], 01/03/2022 13:56:59 01/03/20 22 01/03/2022 COMPR EHENS STEVE METAB OLIC PANEL chloride 103 mmol/ L 98-110 normal Not Available [address], [address], 01/03/2022 13:56:59 01/03/20 22 01/03/2022 COMPR EHENS STEVE METAB OLIC PANEL carbon dioxide 21 mmol/ L 20-32 normal Not Available [address], [address], 01/03/2022 13:56:59 01/03/20 22 01/03/2022 COMPR EHENS STEVE METAB OLIC PANEL calcium 9.1 mg/dL 8.6-10 .2 normal Not Available [address], [address], 01/03/2022 13:56:59 01/03/20 22 01/03/2022 COMPR EHENS STEVE METAB OLIC PANEL protein, total 6.6 g/dL 6.1-8. 1 normal Not Available [address], [address], 01/03/2022 13:56:59 01/03/20 22 01/03/2022 COMPR EHENS STEVE METAB OLIC PANEL albumin 3.5 g/dL 3.6-5. 1 low Not Available [address], [address], 01/03/2022 13:56:59 01/03/20 22 01/03/2022 COMPR EHENS STEVE METAB OLIC PANEL globulin 3.1 g/dL_ (calc ) 1.9-3. 7 normal Not Available [address], [address], 01/03/2022 13:56:59 01/03/20 22 01/03/2022 COMPR EHENS STEVE METAB OLIC PANEL albumin/glob ulin ratio 1.1 (calc ) 1.0-2. 5 normal Not Available [address], [address], 01/03/2022 13:56:59 01/03/20 22 01/03/2022 COMPR EHENS STEVE METAB OLIC PANEL bilirubin, total 0.4 mg/dL 0.2-1. 2 normal Not Available [address], [address], 01/03/2022 13:56:59 01/03/20 22 01/03/2022 COMPR EHENS STEVE METAB OLIC PANEL alkaline phosphatase 112 U/L 31-125 normal Not Available [address], [address], 01/03/2022 13:56:59 01/03/20 22 01/03/2022 COMPR EHENS STEVE METAB OLIC PANEL AST 18 U/L 10-30 normal Not Available [address], [address], 01/03/2022 13:56:59 01/03/20 22 01/03/2022 COMPR EHENS STEVE METAB OLIC PANEL ALT 12 U/L 6-29 normal Not Available [address], [address], 01/03/2022 13:56:59 01/03/20 22 01/03/2022 CBC (INCL UDES DIFF/ PLT) white blood cell count 9.3 thous and/u L 3.8-10 .8 normal Not Available [address], [address], 01/03/2022 13:57:00 01/03/20 22 01/03/2022 CBC (INCL UDES DIFF/ PLT) red blood cell count 4.16 feliciano on/uL 3.80-5 .10 normal Not Available [address], [address], 01/03/2022 13:57:00 01/03/20 22 01/03/2022 CBC (INCL UDES DIFF/ PLT) hemoglobin 12.5 g/dL 11.7-1 5.5 normal Not Available [facility] [address], [address], 01/03/2022 13:57:00 01/03/20 22 01/03/2022 CBC (INCL UDES DIFF/ PLT) hematocrit 37.5 % 35.0-4 5.0 normal Not Available [address], [address], 01/03/2022 13:57:00 01/03/20 22 01/03/2022 CBC (INCL UDES DIFF/ PLT) MCV 90.1 fL 80.0-1 00.0 normal Not Available [address], [address], 01/03/2022 13:57:00 01/03/20 22 01/03/2022 CBC (INCL UDES DIFF/ PLT) MCH 30.0 pg 27.0-3 3.0 normal Not Available [address], [address], 01/03/2022 13:57:00 01/03/20 22 01/03/2022 CBC (INCL UDES DIFF/ PLT) MCHC 33.3 g/dL 32.0-3 6.0 normal Not Available [address], [address], 01/03/2022 13:57:00 01/03/20 22 01/03/2022 CBC (INCL UDES DIFF/ PLT) RDW 13.6 % 11.0-1 5.0 normal Not Available [address], [address], 01/03/2022 13:57:00 01/03/20 22 01/03/2022 CBC (INCL UDES DIFF/ PLT) platelet count 310 thous and/u L 140-40 0 normal Not Available [address], [address], 01/03/2022 13:57:00 01/03/20 22 01/03/2022 CBC (INCL UDES DIFF/ PLT) MPV 10.1 fL 7.5-12 .5 normal Not Available [address], [address], 01/03/2022 13:57:00 01/03/20 22 01/03/2022 CBC (INCL UDES DIFF/ PLT) absolute neutrophils 6929 cells /uL 1500-7 800 normal Not Available [address], [address], 01/03/2022 13:57:00 01/03/20 22 01/03/2022 CBC (INCL UDES DIFF/ PLT) absolute lymphocytes 1330 cells /uL 850-39 00 normal Not Available [address], [address], 01/03/2022 13:57:00 01/03/20 22 01/03/2022 CBC (INCL UDES DIFF/ PLT) absolute monocytes 893 cells /uL 200-95 0 normal Not Available [address], [address], 01/03/2022 13:57:00 01/03/20 22 01/03/2022 CBC (INCL UDES DIFF/ PLT) absolute eosinophils 112 cells /uL 15-500 normal Not Available [address], [address], 01/03/2022 13:57:00 01/03/20 22 01/03/2022 CBC (INCL UDES DIFF/ PLT) absolute basophils 37 cells /uL 0-200 normal Not Available [facility] [address], [address], 01/03/2022 13:57:00 01/03/20 22 01/03/2022 CBC (INCL UDES DIFF/ PLT) neutrophils 74.5 % normal Not Available [address], [address], 01/03/2022 13:57:00 01/03/20 22 01/03/2022 CBC (INCL UDES DIFF/ PLT) lymphocytes 14.3 % normal Not Available [address], [address], 01/03/2022 13:57:00 01/03/20 22 01/03/2022 CBC (INCL UDES DIFF/ PLT) monocytes 9.6 % normal Not Available [address], [address], 01/03/2022 13:57:00 01/03/20 22 01/03/2022 CBC (INCL UDES DIFF/ PLT) eosinophils 1.2 % normal Not Available [address], [address], 01/03/2022 13:57:00 01/03/20 22 01/03/2022 CBC (INCL UDES DIFF/ PLT) basophils 0.4 % normal Not Available [address], [address], 01/03/2022 13:57:00 01/03/20 22 01/03/2022 PROTE IN, TOTAL W/CRE AT, RANDO M URINE creatinine, random urine 134 mg/dL 20-275 normal Not Available [address], [address], 01/03/2022 13:57:00 01/03/20 22 01/03/2022 PROTE IN, TOTAL W/CRE AT, RANDO M URINE protein/crea tinine ratio 179 mg/g_ creat 24-184 normal Not Available [address], [address], 01/03/2022 13:57:00 01/03/20 22 01/03/2022 PROTE IN, TOTAL W/CRE AT, RANDO M URINE protein/crea tinine ratio 0.179 mg/mg _crea t 0.024- 0.184 normal Not Available [address] [place], [address], 01/03/2022 13:57:00 01/03/20 22 01/03/2022 PROTE IN, TOTAL W/CRE AT, RANDO M URINE protein, total, random ur 24 mg/dL 5-24 normal Not Available [facility] [address] [place], [address], 01/03/2022 13:57:00 01/05/20 22 01/04/2022 CBC WITH DIFF WBC 8.9 x10'3 /uL 4.5-11 .0 Not Available [facility] (Lab) [address] [place], [address], 01/04/2022 22:47:02 01/05/20 22 01/04/2022 CBC WITH DIFF RBC 3.78 x10'6 /uL 4.20-5 .40 low Not Available [facility] (Lab) [address] [facility], [place], [address], 01/04/2022 22:47:02 01/05/20 22 01/04/2022 CBC WITH DIFF hemoglobin 11.4 g/dL 12.0-1 6.0 low Not Available [facility] (Lab) [address] [place], [address], 01/04/2022 22:47:02 01/05/20 22 01/04/2022 CBC WITH DIFF hematocrit 33.7 % 38.0-4 8.0 low Not Available [facility] (Lab) [place], [address], 01/04/2022 22:47:02 01/05/20 22 01/04/2022 CBC WITH DIFF MCV 89.2 fL 81.0-9 9.0 Not Available [facility] (Lab) [place], [address], 01/04/2022 22:47:02 01/05/20 22 01/04/2022 CBC WITH DIFF MCH 30.2 pg 27.0-3 1.0 Not Available [facility] (Lab) [address], [place], [address], 01/04/2022 22:47:02 01/05/20 22 01/04/2022 CBC WITH DIFF MCHC 33.8 g/dL 32.0-3 6.0 Not Available [facility] (Lab) [address] [facility], [place], [address], 01/04/2022 22:47:02 01/05/20 22 01/04/2022 CBC WITH DIFF RDW 14.1 % 11.5-1 4.5 Not Available [facility] (Lab) [address], [place], [address], 01/04/2022 22:47:02 01/05/20 22 01/04/2022 CBC WITH DIFF platelet count 314 x10'3 /uL 130-40 0 Not Available [facility] (Lab) [address], [place], [address], 01/04/2022 22:47:02 01/05/20 22 01/04/2022 CBC WITH DIFF MPV 10.3 fL 9.3-12 .2 Not Available [facility] (Lab) [address], [place], [address], 01/04/2022 22:47:02 01/05/20 22 01/04/2022 CBC WITH DIFF diff type AUTOMA BIJAL DIFFER ENTIAL Not Available [facility] (Lab) [address], [place], [address], 01/04/2022 22:47:02 01/05/20 22 01/04/2022 CBC WITH DIFF neutrophils 68.5 % Not Available [facility] (Lab) [address], [place], [address], 01/04/2022 22:47:02 01/05/20 22 01/04/2022 CBC WITH DIFF lymphocytes 17.9 % Not Available [facility] (Lab) [address], [place], [address], 01/04/2022 22:47:02 01/05/20 22 01/04/2022 CBC WITH DIFF monocytes 11.5 % Not Available [facility] (Lab) [address], [place], [address], 01/04/2022 22:47:02 01/05/20 22 01/04/2022 CBC WITH DIFF eosinophils 0.8 % Not Available [facility] (Lab) [address], [place], [address], 01/04/2022 22:47:02 01/05/20 22 01/04/2022 CBC WITH DIFF basophils 0.5 % Not Available [facility] (Lab) [address], [place], [address], 01/04/2022 22:47:02 01/05/20 22 01/04/2022 CBC WITH DIFF immature granulocytes 0.8 % Not Available [facility] (Lab) [address], [place], [address], 01/04/2022 22:47:02 01/05/20 22 01/04/2022 CBC WITH DIFF abs. neutrophils 6.07 x10'3 /uL 1.80-7 .70 Not Available [facility] (Lab) [address], [place], [address], 01/04/2022 22:47:02 01/05/20 22 01/04/2022 CBC WITH DIFF abs. lymphocytes 1.59 x10'3 /uL 1.00-4 .80 Not Available [facility] (Lab) [place], [address], 01/04/2022 22:47:02 01/05/20 22 01/04/2022 CBC WITH DIFF abs. monocytes 1.02 x10'3 /uL 0.24-0 .86 high Not Available [facility] (Lab) [place], [address], 01/04/2022 22:47:02 01/05/20 22 01/04/2022 CBC WITH DIFF abs. eosinophils 0.07 x10'3 /uL 0.04-0 .36 Not Available [facility] (Lab) [place], [address], 01/04/2022 22:47:02 01/05/20 22 01/04/2022 CBC WITH DIFF abs. basophils 0.04 x10'3 /uL 0.01-0 .08 Not Available [facility] (Lab) [place], [address], 01/04/2022 22:47:02 01/05/20 22 01/04/2022 CBC WITH DIFF abs. immature grans 0.07 x10'3 /uL 0.00-0 .49 Not Available [facility] (Lab) [place], [address], 01/04/2022 22:47:02 01/05/20 22 01/04/2022 UA REFLE X TO MICRO specimen type URINE CLEAN CATCH Not Available [facility] (Lab) [place], [address], 01/04/2022 22:47:24 01/05/20 22 01/04/2022 UA REFLE X TO MICRO color YELLOW Not Available [facility] (Lab) [place], [address], 01/04/2022 22:47:24 01/05/20 22 01/04/2022 UA REFLE X TO MICRO clarity CLEAR Not Available [facility] (Lab) [place], [address], 01/04/2022 22:47:24 01/05/20 22 01/04/2022 UA REFLE X TO MICRO specific gravity 1.019 1.001- 1.030 Not Available [facility] (Lab) [place], [address], 01/04/2022 22:47:24 01/05/20 22 01/04/2022 UA REFLE X TO MICRO pH, urine 6.5 5.0-9. 0 Not Available [facility] (Lab) [place], [address], 01/04/2022 22:47:24 01/05/20 22 01/04/2022 UA REFLE X TO MICRO leukocytes 75 neg abnormal Not Available [facility] (Lab) [place], [address], 01/04/2022 22:47:24 01/05/20 22 01/04/2022 UA REFLE X TO MICRO nitrite NEGATI VE neg Not Available [facility] (Lab) [place], [address], 01/04/2022 22:47:24 01/05/20 22 01/04/2022 UA REFLE X TO MICRO protein 20 mg/dL <30 Not Available [facility] (Lab) [place], [address], 01/04/2022 22:47:24 01/05/20 22 01/04/2022 UA REFLE X TO MICRO glucose NORMAL mg/dL norm Not Available [facility] (Lab) [place], [address], 01/04/2022 22:47:24 01/05/20 22 01/04/2022 UA REFLE X TO MICRO ketone NEGATI VE mg/dL neg Not Available [facility] (Lab) [place], [address], 01/04/2022 22:47:24 01/05/20 22 01/04/2022 UA REFLE X TO MICRO urobilinogen NORMAL mg/dL norm Not Available [facility] (Lab) [place], [address], 01/04/2022 22:47:24 01/05/20 22 01/04/2022 UA REFLE X TO MICRO bilirubin NEGATI VE mg/dL neg Not Available [facility] (Lab) [place], [address], 01/04/2022 22:47:24 01/05/20 22 01/04/2022 UA REFLE X TO MICRO blood NEGATI VE neg Not Available [facility] (Lab) [place], [address], 01/04/2022 22:47:24 01/05/20 22 01/04/2022 UA REFLE X TO MICRO mucous FEW /lpf Not Available [facility] (Lab) [address], [place], [address], 01/04/2022 22:47:24 01/05/20 22 01/04/2022 UA REFLE X TO MICRO WBC 7 /hpf <6 high Not Available [facility] (Lab) [address], [place], [address], 01/04/2022 22:47:24 01/05/20 22 01/04/2022 UA REFLE X TO MICRO RBC 4 /hpf <6 Not Available [facility] (Lab) [address], [place], [address], 01/04/2022 22:47:24 01/05/20 22 01/04/2022 UA REFLE X TO MICRO bacteria RARE /hpf none abnormal Not Available [facility] (Lab) [address], [place], [address], 01/04/2022 22:47:24 01/05/20 22 01/04/2022 UA REFLE X TO MICRO squamous epithelial FEW /hpf Not Available [facility] (Lab) [address], [place], [address], 01/04/2022 22:47:24 01/05/20 22 01/04/2022 DRUGS OF ABUSE PANEL , URINE amphetamines , urine NEGATI VE neg Not Available [facility] (Lab) [address], [place], [address], 01/04/2022 23:00:58 01/05/20 22 01/04/2022 DRUGS OF ABUSE PANEL , URINE barbituates, urine NEGATI VE neg Not Available [facility] (Lab) [address], [place], [address], 01/04/2022 23:00:58 01/05/20 22 01/04/2022 DRUGS OF ABUSE PANEL , URINE benzodiazapi janes, urine NEGATI VE neg Not Available [facility] (Lab) [place], [address], 01/04/2022 23:00:58 01/05/20 22 01/04/2022 DRUGS OF ABUSE PANEL , URINE cannabinoids /THC, urine NEGATI VE neg Not Available [facility] (Lab) [place], [address], 01/04/2022 23:00:58 01/05/20 22 01/04/2022 DRUGS OF ABUSE PANEL , URINE cocaine, urine NEGATI VE neg Not Available [facility] (Lab) [place], [address], 01/04/2022 23:00:58 01/05/20 22 01/04/2022 DRUGS OF ABUSE PANEL , URINE methadone, urine NEGATI VE neg Not Available [facility] (Lab) [place], [address], 01/04/2022 23:00:58 01/05/20 22 01/04/2022 DRUGS OF ABUSE PANEL , URINE opiates, urine NEGATI VE neg Not Available [facility] (Lab) [place], [address], 01/04/2022 23:00:58 01/05/20 22 01/04/2022 DRUGS OF ABUSE PANEL , URINE phencyclidin es, urine NEGATI VE neg NOTE: RESUL TS OF THIS DRUG SCREE N SHOCLAUDIO D BE USED FOR MEDIC AL PURPO SES ONLY AND NOT FOR LEGAL OR EMPLO YMENT PURPO SES. POSIT STEVE RESUL TS ARE NOT CONFI RMED. MEDIC ATION S CONTA INING EPHED RINE MAY CAUSE FALSE POSIT STEVE AMPHE TAMIN E CALL [phone], LAB, TO REQUE ST CONFI RMATI ON TESTI NG. IF CREAT ININE IS <40 mg/dL . RECOL LECTI ON IS NEFTALI MORGAN. AMPHE TAMIN E- 500 NG/ML MALISSA TURAT E- 200 NG/ML BENZO DIAZE PINES - 200 NG/ML THC- 50 NG/ML COCAI NE- 150 NG/ML METHA DONE- 300 NG/ML OPIAT E- 300 MG/ML PCP- 25 NG/ML Not Available [facility] (Lab) [place], [address], 01/04/2022 23:00:58 01/05/2001/04/2022 DRUGS OF ABUSE PANEL , URINE creatinine, urine 212.0 mg/dL 28-217 Not Available [facility] (Lab) [place], [address], 01/04/2022 23:00:58 01/05/20 22 01/04/2022 CREAT ININE , URINE creatinine, urine 206.0 mg/dL 28-217 Not Available [facility] (Lab) [place], [address], 01/04/2022 23:01:00 01/05/20 22 01/04/2022 TOTAL PROTE IN, URINE total protein, urine 25.8 mg/dL <10 high Not Available [facility] (Lab) [place], [address], 01/04/2022 23:01:01 01/05/20 22 01/04/2022 COMPR EHENS STEVE METAB OLIC PANEL glucose 117 mg/dL 70-99 high Not Available [facility] ([place]) [place], [address], 01/04/2022 23:11:06 01/05/20 22 01/04/2022 COMPR EHENS STEVE METAB OLIC PANEL BUN 10 mg/dL 7-18 Not Available [facility] (Lab) One [place], [address], 01/04/2022 23:11:06 01/05/20 22 01/04/2022 COMPR EHENS STEVE METAB OLIC PANEL creatinine 0.76 mg/dL 0.55-1 .02 Not Available [facility] (Lab) [address] [facility], [place], [address], 01/04/2022 23:11:06 01/05/20 22 01/04/2022 COMPR EHENS STEVE METAB OLIC PANEL sodium 138 mmol/ L 136-14 5 Not Available [facility] (Lab) [place], [address], 01/04/2022 23:11:06 01/05/20 22 01/04/2022 COMPR EHENS STEVE METAB OLIC PANEL potassium 3.2 mmol/ L 3.5-5. 1 low Not Available [facility] (Lab) [place], [address], 01/04/2022 23:11:06 01/05/20 22 01/04/2022 COMPR EHENS STEVE METAB OLIC PANEL chloride 109 mmol/ L 100-10 8 high Not Available [facility] (Lab) [place], [address], 01/04/2022 23:11:06 01/05/20 22 01/04/2022 COMPR EHENS STEVE METAB OLIC PANEL total CO2 21.1 mmol/ L 21-32 Not Available [facility] (Lab) [place], [address], 01/04/2022 23:11:06 01/05/20 22 01/04/2022 COMPR EHENS STEVE METAB OLIC PANEL calcium 9.0 mg/dL 8.5-10 .1 Not Available [facility] (Lab) [address] [place] [facility], [address], 01/04/2022 23:11:06 01/05/20 22 01/04/2022 COMPR EHENS STEVE METAB OLIC PANEL total bilirubin 0.2 mg/dL 0.2-1. 2 THIS ASSAY IS NOT RECOM CORIE D FOR PATIE NTS UNDER GOING TREAT MENT WITH ELTRO MBOPA G DUE TO THE POTEN TIAL FOR FALSE LY ELEVA BIJAL RESUL TS. Not Available [facility] (Lab) [address] [facility], [place], [address], 01/04/2022 23:11:06 01/05/20 22 01/04/2022 COMPR EHENS STEVE METAB OLIC PANEL total protein 6.8 g/dL 6.4-8. 2 Not Available [facility] (Lab) [place], [address], 01/04/2022 23:11:06 01/05/20 22 01/04/2022 COMPR EHENS STEVE METAB OLIC PANEL albumin 2.6 g/dL 3.4-5. 0 low Not Available [facility] (Lab) [place], [address], 01/04/2022 23:11:06 01/05/20 22 01/04/2022 COMPR EHENS STEVE METAB OLIC PANEL AST 23 U/L 15-37 Not Available [facility] (Lab) [place], [address], 01/04/2022 23:11:06 01/05/20 22 01/04/2022 COMPR EHENS STEVE METAB OLIC PANEL ALT 23 U/L 14-55 Not Available [facility] (Lab) [place], [address], 01/04/2022 23:11:06 01/05/20 22 01/04/2022 COMPR EHENS SETVE METAB OLIC PANEL alk phosphatase 107 U/L 50-136 Not Available [facility] (Lab) [place], [address], 01/04/2022 23:11:06 01/05/20 22 01/04/2022 COMPR EHENS STEVE METAB OLIC PANEL anion gap 7.9 mmol/ L 5-15 Not Available [facility] (Lab) [place], [address], 01/04/2022 23:11:06 01/05/20 22 01/04/2022 COMPR EHENS STEVE METAB OLIC PANEL BUN creatinine ratio 13.2 6-26 Not Available [facility] (Lab) [place], [address], 01/04/2022 23:11:06 01/05/20 22 01/04/2022 COMPR EHENS STEVE METAB OLIC PANEL A:g ratio 0.6 ratio 1.0-2. 0 low Not Available [facility] (Lab) [place], [address], 01/04/2022 23:11:06 01/05/20 22 01/04/2022 COMPR EHENS STEVE METAB OLIC PANEL est GFR >90 mL/mi n/1.7 3_M2 >90 NOTE: eGFR is not calcu lated for patie nts <18 years of age. This is an estim ated GFR calcu latio n using the new CKD EPI creat inine equat ion witho ut race and so does not requi re a corre ction facto r for race. This estim ated GFR shoul d not be used for calcu latin g drug doses . Not Available [facility] (Lab) One [facility], [place], [address], 01/04/2022 23:11:06 01/05/20 22 01/04/2022 TYPE AND SCREE N ABO/Rh(D) O POSITI VE Not Available [facility] (Lab) One [facility], [place], [address], 01/04/2022 23:34:37 01/05/20 22 01/04/2022 TYPE AND SCREE N antibody screen NEGATI VE Not Available [facility] (Lab) [address], [place], [address], 01/04/2022 23:34:37 01/05/20 22 01/04/2022 TYPE AND SCREE N xm expiration 2021,2 359 Not Available [facility] (Lab) One [facility], [place], [address], 01/04/2022 23:34:37 01/06/20 22 01/07/2022 FARIDEH SURGI ADRIÁN PATH[facility] 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 Clini adrián Histo ry 39/1 week gesta tion pregn mary jane, gesta juan r l hyper tensi on Gross Descr iptio n Recei velasquez is a singl e forma eneida-f illed conta iner label ed with the patie nt's name (Maegan resendez), date of (11/19 4) (jeremie ectio n time 01/05 at 1332) and addit ional ly label ed plac enta. The speci men consi sts of a singl eton place nta, 20.5 x 20.0 x 4.0 cm with an eccen trica lly inser bijal umbil ical cord, measu ring 28.0 cm in lengt h with a diame ter up to 1.8 cm. The cord appea rs sligh tly edema tous. Secti oning of the cord revea ls three -vess els and there are no ident ifiab le true or false knots prese nt. The membr anes are purpl e-hernandez semit ransl ucent and have jasmine nal inser tion. The surfa ce is purpl e-hernandez with paul l vascu latur e. The mater nal surfa ce is red-t an with intac t cotyl edons and a singl e area of white -hernandez disco lored tissu e prese nt. The she ed disc weigh s 668 grams . Secti oning of the disc revea ls a singl e area of white -hernandez, dense disco lored tissu e (prev iousl y menti oned mater nal surfa ce), measu ring 1.0 cm in great est dimen tisha, that is less than 5% of the total place ntal disc. The remai kristina cut surfa ce is red-t an and homog enous . Repre senta tive secti ons are submi tted as follo ws: 1 - Membr ane roll 2 - Repre senta tive cord 3-4 - Repre senta tive full thick ness place ntal disc (cont iguou s secti ons) to inclu de area of dense disco lored tissu e submi tted entir iron in casse tte 3 5-6 - Repre senta tive full thick ness remai kristina place ntal disc :lc Oliverio óscar Fee Code( s): 36011 Not Available [facility] (Lab) [place], [address], 01/07/2022 14:17:44 01/07/20 22 01/06/2022 CBC WITH DIFF WBC 12.0 x10'3 /uL 4.5-11 .0 high Not Available [facility] (Lab) [place], [address], 01/06/2022 07:03:03 01/07/20 22 01/06/2022 CBC WITH DIFF RBC 3.77 x10'6 /uL 4.20-5 .40 low Not Available [facility] (Lab) [place], [address], 01/06/2022 07:03:03 01/07/20 22 01/06/2022 CBC WITH DIFF hemoglobin 11.3 g/dL 12.0-1 6.0 low Not Available [facility] (Lab) [place], [address], 01/06/2022 07:03:03 01/07/20 22 01/06/2022 CBC WITH DIFF hematocrit 34.0 % 38.0-4 8.0 low Not Available [facility] (Lab) [address], [place], [address], 01/06/2022 07:03:03 01/07/2001/06/2022 CBC WITH DIFF MCV 90.2 fL 81.0-9 9.0 Not Available [facility] (Lab) [address], [place], [address], 01/06/2022 07:03:03 01/07/2001/06/2022 CBC WITH DIFF MCH 30.0 pg 27.0-3 1.0 Not Available [facility] (Lab) [address], [place], [address], 01/06/2022 07:03:03 01/07/20 22 01/06/2022 CBC WITH DIFF MCHC 33.2 g/dL 32.0-3 6.0 Not Available [facility] (Lab) [address], [place], [address], 01/06/2022 07:03:03 01/07/2001/06/2022 CBC WITH DIFF RDW 14.3 % 11.5-1 4.5 Not Available [facility] (Lab) [address], [place], [address], 01/06/2022 07:03:03 01/07/2001/06/2022 CBC WITH DIFF platelet count 280 x10'3 /uL 130-40 0 Not Available [facility] (Lab) [address], [place], [address], 01/06/2022 07:03:03 01/07/20 22 01/06/2022 CBC WITH DIFF MPV 10.3 fL 9.3-12 .2 Not Available [facility] (Lab) [address], [place], [address], 01/06/2022 07:03:03 01/07/20 22 01/06/2022 CBC WITH DIFF diff type AUTOMA BIJAL DIFFER ENTIAL Not Available [facility] (Lab) [address], [place], [address], 01/06/2022 07:03:03 01/07/2001/06/2022 CBC WITH DIFF neutrophils 72.8 % Not Available [facility] (Lab) [address], [place], [address], 01/06/2022 07:03:03 01/07/20 22 01/06/2022 CBC WITH DIFF lymphocytes 16.8 % Not Available [facility] (Lab) [address], [place], [address], 01/06/2022 07:03:03 01/07/20 22 01/06/2022 CBC WITH DIFF monocytes 7.8 % Not Available [facility] (Lab) [address], [place], [address], 01/06/2022 07:03:03 01/07/20 22 01/06/2022 CBC WITH DIFF eosinophils 1.8 % Not Available [facility] (Lab) [address], [place], [address], 01/06/2022 07:03:03 01/07/20 22 01/06/2022 CBC WITH DIFF basophils 0.3 % Not Available [facility] (Lab) [address], [place], [address], 01/06/2022 07:03:03 01/07/20 22 01/06/2022 CBC WITH DIFF immature granulocytes 0.5 % Not Available [facility] (Lab) [address] [facility], [place], [address], 01/06/2022 07:03:03 01/07/20 22 01/06/2022 CBC WITH DIFF abs. neutrophils 8.73 x10'3 /uL 1.80-7 .70 high Not Available [facility] (Lab) [place], [address], 01/06/2022 07:03:03 01/07/20 22 01/06/2022 CBC WITH DIFF abs. lymphocytes 2.01 x10'3 /uL 1.00-4 .80 Not Available [facility] (Lab) [address] [facility], [place], [address], 01/06/2022 07:03:03 01/07/20 22 01/06/2022 CBC WITH DIFF abs. monocytes 0.94 x10'3 /uL 0.24-0 .86 high Not Available [facility] (Lab) [place], [address], 01/06/2022 07:03:03 01/07/20 22 01/06/2022 CBC WITH DIFF abs. eosinophils 0.21 x10'3 /uL 0.04-0 .36 Not Available [facility] (Lab) [place], [address], 01/06/2022 07:03:03 01/07/20 22 01/06/2022 CBC WITH DIFF abs. basophils 0.04 x10'3 /uL 0.01-0 .08 Not Available [facility] (Lab) [place], [address], 01/06/2022 07:03:03 01/07/20 22 01/06/2022 CBC WITH DIFF abs. immature grans 0.06 x10'3 /uL 0.00-0 .49 Not Available [facility] (Lab) One [facility], [place], [address], 01/06/2022 07:03:03 12/06/19 22 12/05/2021 US, obste tric, limit ed No observ ation record ed. swallerdavis [address], [place], [address], 12/08/2021 17:06:22 12/11/19 22 12/10/2021 US, obste tric, mater nal evalu ation + anato my, singl e gesta tion No observ ation record ed. [email or web address] [facility] [address] [place], [address], 12/21/2021 16:39:49 12/15/19 22 12/12/2021 US, obste tric, bioph ysica l profi le No observ ation record ed. [address], [place], [address], 12/16/2021 10:20:57 12/20/19 US, obste tric, bioph ysica l profi le No observ ation record ed. JET [facility] [address] [place], [address], 12/24/2021 11:12:15 12/20/19 22 12/17/2021 US, obste tric, amnio tic fluid index No observ ation record ed. lduffe [address], [place], [address], 12/19/2021 17:45:13 12/21/19 22 US, obste tric, bioph ysica l profi le No observ ation record ed. king [address] [address] [place], [address], 12/20/2021 12:37:17 12/24/19 22 12/20/2021 US, obste tric, bioph ysica l profi le No observ ation record ed. tcarrell [address], [place], [address], 12/24/2021 09:14:30 12/28/19 22 , obste tric, bioph ysica l profi le No observ ation record ed. king [address] [address] [place], [address], 12/27/2021 12:07:31 12/30/19 22 12/27/2021 US, obste tric, bioph ysica l profi le No observ ation record ed. tcarrell [address], [place], [address], 01/06/2022 18:50:45 01/05/20 non-s tress test No observ ation record ed. [email or web address] Not Available 2021 11:52:40 01/06/20 22 01/02/2022 US, obste tric, bioph ysica l profi le + non-s tress test No observ ation record ed. tcarrell [address], [place], [address], 01/06/2022 18:57:00 Result Notes None recorded. Problems Name Problem SNOMED Code Status Onset Date Resolution Date Notes Provider Name and Address Organization Details Recorded Time Sampling of vagina for Papanico laou smear Completed 201904/11/2021 Encounte r for gynecolo gical examinat ion (general ) (routine ) without abnormal findings ; Severity : Moderate Progress : Stable Added By: Mae Sam Add to Current Problems : YES ProblemS tatus: Current Mariza Bullock null, [place] - [facility] IV 14:50:09 Uses combined oral contrace ption 034984194 Completed 202004/11/2021 Encounte r for initial prescrip tion of contrace ptive pills; Severity : Moderate Progress : Stable Added By: Cayla aPz Add to Current Problems : YES ProblemS tatus: Current Mariza Bullock null, [place] - [facility] IV 14:50:02 Educatio n Completed 201804/11/2021 Encounte r for other general counseli ng and advice on contrace ption; Severity : Moderate Progress : Stable Added By: Erin Jackson Add to Current Problems : YES ProblemS tatus: Current Mariza Bullock null, [place] - [facility] IV 14:50:05 Acute vaginiti s 09120900 Completed 202004/11/2021 Acute vaginiti s; Severity : Moderate Progress : Stable Added By: Leana Gerardo Add to Current Problems : YES ProblemS tatus: Current Mariza Bullock null, [place] [facility] IV 14:49:58 Insertio n of intraute rine contrace ptive device done [id number] 9109 Completed 201804/11/2021 Encounte r for insertio n of intraute rine contrace ptive device; Severity : Moderate Progress : Stable Added By: Ngozi Irene Add to Current Problems : YES ProblemS tatus: Current Mariza Bullock null, [place] - [facility] IV 14:50:07 Pregnanc y 47235705 Completed 202102/17/2022 Oksana cummings, [address] [place], [address], [facility] [employer] [facility] IV 2 12:08:46 Normal pregnanc y in multigra mustapha [id number] 4106 Completed Oksana cummings [address] [place], [address], [place] [facility] IV 2 12:08:43 Gestatio n period, 34 weeks 78626098 Active 2021 Yao Simpson [address] [place], [address], [facility] IV 2 12:03:45 Pregnanc y-induce d hyperten tisha 40430617 Completed cbc, cmp weekly NST twice a week BPP weekly Oksana cummings, [facility] [address] [place], [address], [facility] - [facility] IV 2 12:08:43 Large for trippatio n age fetus 708423380 Completed 95%ile, IOL at 39 weeks Oksana cummings, [facility] [address] [place] [address], [address], [facility] - [facility] IV 2 12:08:43 Problem Notes None recorded. Procedures Surgical History Date Name Laterality Status Provider Name and Address Organization Details Recorded Time 01/02/2022 NST completed JESUS CURTIS, CELENA [address] [place] [address], [phone], [employer] [facility] IV 01/02/2022 10:57:51 12/30/2021 NST completed JESUS CURTIS CNM [address] [place] [address], [address], [employer] [facility] IV 12/30/2021 10:03:30 12/27/2021 NST completed JESUS CURTIS CNM [address] [place] [address], [address], [facility] - [facility] IV 12/27/2021 12:12:45 12/24/2021 NST completed Pati Domingo CNM [address] [place] [address], [address], [facility] - [facility] IV 12/24/2021 16:07:29 12/20/2021 NST completed JESUS CURTIS CNM [address] [place] [address], [address], [place] [facility] IV 01/08/2022 03:28:35 12/17/2021 NST completed BRIAN RANDALL, [facility] [address] [place], [address], [place] [facility] IV 12/17/2021 14:07:02 12/02/2021 NST completed Yao Simpson [facility] [address] [place], [address], [place] [facility] IV 12/02/2021 12:57:09 11/28/2021 NST completed La Nena Lynch , [facility] [address] [place], [address], [place] [facility] IV 11/28/2021 13:43:20 11/25/2021 NST completed JYOTSNA SYKES MD [address] [place], [address], [place] [facility] IV 01/30/2022 12:53:14 Imaging Results Imaging Date Name Status LastModified by Organiz ation Details LastModified Time 12/05/2021 US, obstetric, limited completed edgar [address], [place], [address], 12/08/2021 17:06:22 12/10/2021 US, obstetric, maternal evaluation + anatomy, single gestation completed [email or web address] [facility] [address] [place], [address], 12/21/2021 16:39:49 12/12/2021 US, obstetric, biophysical profile completed [email or web address] [address], [place], [address], 12/16/2021 10:20:57 12/19/2021 US, obstetric, biophysical profile [facility] [address] [place], [address], 12/24/2021 11:12:15 12/17/2021 US, obstetric, amniotic fluid index completed lduffe [address], [place], [address], 12/19/2021 17:45:13 12/20/2021 US, obstetric, biophysical profile completed [email or web address] [facility] [address] [place], [address], 12/20/2021 12:37:17 12/20/2021 US, obstetric, biophysical profile completed tcarrell [address], [place], [address], 12/24/2021 09:14:30 12/27/2021 US, obstetric, biophysical profile completed [email or web address] [facility] [address] [place], [address], 12/27/2021 12:07:31 12/27/2021 US, obstetric, biophysical profile completed tcarrell [address], [place], [address], 01/06/2022 18:50:45 01/04/2022 non-stress test completed [email or web address] Informati on not available 01/06/2022 11:52:40 01/02/2022 US, obstetric, biophysical profile + non-stress test completed tcarrell [address], [place], [address], 01/06/2022 18:57:00 Procedure Notes None recorded. Medical Equipment None Reported. Allergies Allergen ID Allergen Name Allergen Category Reaction Reaction Severity Criticality Documentation Date Start Date Code Code System Note Provider Name and Address Organization Details Recorded Time 493175 cat dander environme nt Not available Not available Not available 06/25/2021 38611 UNK Not Available Not Available Not Available 598561 Canis lupus familiari s extract environme nt Not available Not available Not available 06/25/2021 94659 4 RxNorm Not Available Not Available Not Available No known drug allergies Medications Name Sig Start Date Stop Date Status Note LastModified by Organization Details LastModified Time azithromy zuleyma 250 mg tablet active Not Available Not Available No t Available ibuprofen 800 mg tablet active Not Available Not Available Not Available fluconazo le 150 mg tablet TAKE 1 TABLET BY MOUTH 1 TIME 04/11 completed Not Available Not Available Not Available metronida zole 0.75 % (37.5 mg/5 gram) vaginal gel PLACE VAGINALL Y EVERY NIGHT FOR 7 DAYS 04/11 completed Not Available Not Available Not Available fluoxetin e 10 mg tablet 04/11 completed Not Available Not Available Not Available metronida zole 500 mg tablet TAKE 1 TABLET BY MOUTH AFTER SEXUAL INTERCOU RSE 04/11 completed Not Available Not Available Not Available Adderall XR 20 mg capsule,e xtended release 04/11 completed Not Available Not Available Not Available amoxicill in 875 mg tablet 04/11 completed Not Available Not Available Not Available fluoxetin e 20 mg tablet 04/11 completed Not Available Not Available Not Available triamcino lone acetonide 0.1 % topical ointment APPLY TOPICALL Y TO THE AFFECTED AREA TWICE DAILY FOR 2 WEEKS NEEDED FOR DERMATIT IS active Not Available Not Available No t Available tacrolimu s 0.03 % topical ointment APPLY EXTERNAL LY TO THE AFFECTED AREA TWICE DAILY FOR ECZEMA 04/11 completed Not Available Not Available Not Available methylpre dnisolone 4 mg tablets in a dose pack 04/11 completed Not Available Not Available Not Available Adderall 10 mg tablet take 1 tablet (10 mg) by oral route 2 times per day before breakfas t and at 2 pm 04/11 completed Adderall 10 mg oral tablet RxNorm: 181112 Allow Substitu tion: False Refill Denied: No Refill DateOccu rred: 01/07/20 19 Edited by: Mae Dougherty ) on 05/31/19 20 Stopped by: Mae Dougherty ) on Not Available Not Available Not Available Vitamins with Minerals 28 mg iron-800 mcg tablet OD as directed 2021 active Not Available Not Available Not Avai lable active Not Available Not Avai lable Not Available Mirena 05/18 completed Mirena RxNorm: 065890 Allow Substitu tion: False Refill Denied: No Refill DateOccu rred: 05/31/19 20 Edited by: Leana Marin ) on 05/18/19 21 Stopped by: neli fong(Leana Hawk ) on 05/18/19 21 Not Available Not Available Not Available Lo Loestrin Fe 1 mg-10 mcg (24)/10 mcg (2) tablet TAKE 1 TABLET BY MOUTH DAILY 04/11 completed Not Available Not Available Not Available Vitals Date Recorded Body height Body mass index (BMI) Body temperature Systolic blood pressure Diastolic blood pressure Provider Name and Address Organization Details Last Updated DateTime 162.56 cm 36.9 kg/m2 97.1 [degF] 128 mm[Hg] 80 mm[Hg] Ngozi Long [place] [employer] IV 2 12:01:29 Date Recorded Body weight Provider Name an d Address Organization Details Last Updated DateTime 12/24/2021 95622.78847 g Pati Domingo, [facility] [address] [place], [address], [place] [employer] IV 12/24/2021 16:08:35 Date Recorded Body height Body mass index (BMI) Systolic blood pressure Diastolic blood pressure Provider Name and Address Organization Details Last Updated DateTime 12/27/2021 162.56 cm 37.1 kg/m2 132 mm[Hg] 82 mm[Hg] Karen Gee [facility] [employer] [facility] IV 12/27/2021 11:17:47 Date Recorded Body weight Provider Name an d Address Organization Details Last Updated DateTime 12/27/2021 29788.23942 g JESUS CURTIS, [facility] [address] [place], [address], [place] [employer] IV 12/27/2021 12:31:26 Date Recorded Body height Body mass index (BMI) Body weight Systolic blood pressure Diastolic blood pressure Provider Name and Address Organization Details Last Updated DateTime 12/30/2021 162.56 cm 36.6 kg/m2 10155.17 481 g 128 mm[Hg] 88 mm[Hg] Katy Barraza [place] [employer] IV 2 10:20:19 Date Recorded Body height Body mass index (BMI) Body weight Systolic blood pressure Diastolic blood pressure Provider Name and Address Organization Details Last Updated DateTime 01/02/2022 162.56 cm 36.7 kg/m2 78637.76 718 g 124 mm[Hg] 82 mm[Hg] Elva Espinoza [place] [facility] IV 2 10:43:39 Date Recorded Body height Body mass index (BMI) Body temperature Systolic blood pressure Diastolic blood pressure Provider Name and Address Organization Details Last Updated DateTime 02/13/2022 162.56 cm 31.9 kg/m2 97 [degF] 110 mm[Hg] 60 mm[Hg] Hallie Teague [place] [employer] IV 2 10:43:54 Date Recorded Body weight Provider Name an d Address Organization Details Last Updated DateTime 02/13/2022 89710.546785 g Oksana Yo, [facility] [address] [place], [address], [employer] IV 02/17/2022 12:08:43 Social History Question Answer Notes LastModified by Organizat ion Details LastModified Time Tobacco Smoking Status Never Smoker Juju dubois, [employer] Strike IV 04/10/2021 11:00:23 What Is Your Level Of Alcohol Consumption? None Information not available 04/10/2021 Are You Blind Or Do You Have Difficulty Seeing? No Information not available 08/26/2021 Are You Deaf Or Do You Have Serious Difficulty Hearing? No Information not available 08/26/2021 What Type Of Diet Are You Following? REGULAR Information not available 08/26/2021 Do You Or Have You Ever Used E-cigarettes Or Vape? Never Used Electronic Cigarettes Information not available 06/25/2021 How Many Children Do You Have? 1 Information not available 04/10/2021 What Is Your Relationship Status? Information not available 04/10/2021 Are You Sexually Active? Yes Information not available 04/10/2021 Do You Use Any Illicit Or Recreational Drugs? No Information not available 04/10/2021 Do You Or Have You Ever Used Any Other Forms Of Tobacco Or Nicotine? No tamper1 Information not available 04/10/2021 Sex: Unknown Functional Status Question Answer Note LastModified by Organizat ion Details LastModified Time What is your exercise level? Occasional Information not available 06/25/2021 Mental Status None recorded. Family History Relationship Description Onset Age of this Age Resolved Age Notes LastModified by Organization Details LastModified Time Maternal Grandmother Family history of cancer of colon Not available 2020 10:59:46 Medical History Condition Response Other Cancer N High Blood Pressure N Colon Cancer N Cytomegalovirus N Hyperthyroidism N Blood Transfusion N MRSA N Herpes (HSV) N Breast Cancer N Lung Cancer N Depression N Hypothyroidism N Incontinence N Panic Attacks N Neurological Disorder N Deep Vein Thrombosis N Anxiety Disorder N Autoimmune disease N Arthritis N Shingles N Tuberculosis/Positive PPD N Polycystic Ovarian Syndrome N Cervical Cancer N Chlamydia N Hematuria N Stroke N Varicosities N Seasonal allergies N Crohn's Disease N Alzheimer's/Dementia N COPD/Emphysema N Endometriosis N HPV/Genital Warts N IBS (Irritable Bowel Syndrome) N History of Abnormal Pap N High Cholesterol N Liver Disease N Kidney Infection N Fibromyalgia N Ulcer N Kidney Disease N HIV N Gallbladder disease N Von Willebrand disease N Sickle Cell Disease/Trait N ADD/ADHD N Eating Disorder N Diabetes Mellitus (non-insulin dependent ) N Anemia N Ovarian Problems N Multiple Sclerosis N Gonorrhea N Frequent Urinary Tract infections N Osteopenia N Headaches/migraines N GERD (reflux) N Ovarian Cancer N Diabetes (insulin dependent) N Seizures/Epilepsy N Fibroids N Asthma N Heart Attack N Endometrial Cancer N Lupus N Rubella N Blood Clotting Disorder N Bipolar Disorder N Diabetes Mellitus (during ) N Ulcerative Colitis N Hepatitis N Heart Disease N Pulmonary Embolism N RPR N Chicken Pox N Osteoporosis N Gynecological History Statement/Question Response Date of LMP 03/08/2021 HPV Vaccine N Date of Last Pap Smear Most Recent Mammogram Current Control Method Age at Menarche 11 Obstetrics History GPAL:G 2 P 2 0 0 1 Type Value Multiple Births 0 Full Term 2 Induced 0 Spontaneous 0 Premature 0 Living 1 Ectopics 0 Total 2 Past Encounters Encounter ID Performer Location Encounter Start Date Encounter Closed Date Diagnosis/Indication Diagnosis SNOMED-CT Code Diagnosis ICD10 Code Diagnosis Note [id number] Pati Roth Jose L, [facility] [address] [place] [address] 04/11/2021 14:30:05 04/24/2021 10:08:45 Threatened miscarriage 16466275 O20.0 quant today to confirm SAB. Strtict precaution s reviewed. [id number] Pati Roth Jose L [facility] [address] [place] [address] 05/27/2021 13:46:34 05/29/2021 12:32:26 Threatened miscarriage 44990448 O20.0 History of miscarriag e in March. No real LMP since but did have bleeding on 04/06. Ultrasound today reveals 7 2/7 week viable IUP with CLIFFORD of 01/11/22. Labor precaution s reviewed. Followup for NOB in 4 weeks. test positive 542738925 Z32.01 [id number] JESUSBLAINE CURTIS, [facility] [address] [place] [address] 06/25/2021 15:09:56 07/09/2021 14:05:49 [id number] Z33.1 Routine an tenatal care 897753890 Z34.01 Z34.81 O09.511 O09.521 Infection screening 2437 78525 Z11.9 [id number] Madonna Figueredo, DO [facility] [address] [place] [address] 07/26/2021 16:53:54 07/29/2021 09:42:39 Routine care 875682640 Z34.82 screening 2437 91637 Z36.0 [id number] Madonna Figueredo, DO [facility] [address] [place] [address] 08/26/2021 10:17:53 08/26/2021 14:55:30 Routine care 398239651 Z34.82 screening for malformation 149180686 Z36.3 [id number] Madonna Figueredo, DO [facility] [address] [place] [address] 09/25/2021 09:48:44 09/25/2021 11:04:41 Routine care 849612775 Z34.82 Low lying placenta 18212 2006 O44.42 [id number] Madonna Figueredo DO [facility] [address] [place] [address] 10/25/2021 09:57:15 10/25/2021 12:40:57 Routine care 404445713 Z34.83 Diabetes m ellitus screening 004026929 Z13.1 [id number] Cayla Paz MD [facility] [address] [place] [address] 11/08/2021 11:43:24 11/08/2021 14:14:29 Routine care 612060083 Z34.83 Gestation period, 30 weeks 70657674 Z3A.30 [id number] Madonna Figueredo DO [facility] [address] [place] [address] 11/22/2021 10:24:22 11/22/2021 12:29:29 Routine care 802712981 Z34.83 Elevated blood-pressure reading without diagnosis of hypertension 976305311 R03.0 [id number] JYOTSNA RICH MD [facility] [address] [place] [address] 11/25/2021 11:54:12 01/30/2022 13:02:32 Gestation period, 33 weeks 10740445 Z3A.33 - induced hypertension 17471842 O13.9 Supervisio n of high risk for multigravida done 3162149787 9109 O09.93 [id number] La Nena Lynch [facility] [address] [place] [address] 11/28/2021 11:25:27 11/28/2021 13:44:54 Normal in multigravida 0153397544 92309 Z34.83 Gestation period, 34 weeks 48285840 Z3A.34 labor precaution s given. FM counts discussed. F/u in L&D if experienci ng decreased movement, leaking fluid, 4 or more contractio ns in 1 hour not relieved by rest and fluids, or regular uterine contractio ns increasing in frequency and/or intensity. Gestationa l proteinuria without hypertension 792928866 O12.13 [id number] Yao Simpson CHANO [facility] [address] [place] [address] 12/02/2021 10:22:51 12/02/2021 12:07:55 Gestation period, 34 weeks 28134417 Z3A.34 NST and U/S on . S>D and patient case to submit PA for growth next visit. Routine an tenatal care 450572425 Z34.93 [id number] Oksana tomas, [facility] [address] [place] [address] 12/05/2021 11:24:12 12/24/2021 11:52:56 -induced hypertension 72693779 O13.9 [id number] Pati Domingo [facility] [address] [place] [address] 2021 11:12:18 2021 13:02:01 [id number] Oksana tomas, [facility] [address] [place] [address] 12/12/2021 10:21:26 12/12/2021 11:36:25 -induced hypertension 19100721 O13.9 [id number] BRIAN RANDALL, [facility] [address] [place] [address] 12/17/2021 11:34:06 12/17/2021 14:09:32 Gestation period, 36 weeks 06658698 Z3A.36 IUP @ 36+ wks. US: BPP 01/27 No OB complaints . GBS today. PTL precaution s. RTO 1 wk - induced hypertension 03937931 O13.9 stable, denies s/s pre-e. precaution s discussed. [id number] Pati Domingo [facility] [address] [place] [address] 12/24/2021 11:12:12 12/24/2021 15:43:22 -induced hypertension 09089132 O13.9 [id number] [facility] [address] [place] [address] 12/20/2021 11:30:08 01/08/2022 13:54:48 High risk 37134429 O09.93 Gestation period, 36 weeks 08489554 Z3A.36 [id number] JESUS CURTIS [facility] [address] [place] [address] 12/27/2021 10:55:09 01/23/2022 13:43:40 -induced hypertension 80362407 O13.9 Gestation period, 37 weeks 43324633 Z3A.37 High risk 4720 0007 O09.93 [id number] JESUS CURTIS [facility] [address] [facility] [place] [address] 12/30/2021 10:10:53 12/30/2021 11:31:27 -induced hypertension 73104280 O13.9 [id number] JESUS CURTIS [facility] [address] [facility] [place] [address] 01/02/2022 10:02:39 01/02/2022 11:46:11 Gestation period, 38 weeks 14848848 Z3A.38 Normal pre gnancy in multigravida 6136758897 82618 Z34.83 - induced hypertension 79105764 O13.9 [id number] Oksana tomas, [facility] [address] [facility] [place] [address] 02/13/2022 10:27:49 02/26/2022 13:53:22 state 02436480 Z39.2 declines BC at this time Health Concerns Section Related Observation LastModified by Organization Detai ls LastModified Time None Recorded Concern Status LastModified by Organization Details LastModified Time None Recorded Advance Directives Directive None Recorded Payers Encounter Date Sequence Insurance Name Policy Number Policy Morrow Covered Member ID Morrow Member ID Guarantor Name 12/24/2021 1 [employer] [id number] Heather Bales [id number] Samuel Bales 12/27/2021 1 [employer] [id number] Heather Bales [id number] Samuel Bales 12/30/2021 1 [employer] [id number] Heather Bales [id number] Samuel Bales 01/02/2022 1 [employer] [id number] Heather Bales [id number] Samuel Bales 02/13/2022 1 [facility] [id number] Heather Bales [id number] Samuel Blaes Notes Date Note Type Note Provider Name and Address Organization Details Recorded Time 12/24/2021 text/html OB ProblemReport ed bypatient.Associated Symptoms:no abdominal pain; no cramping; no contractions; normal movement; no bleeding; no ROM; no vaginal discharge; no vaginal/vulvar itching or irritation; no edema; no visual changes; no headache; no dizziness; no breathlessness Pati Domingo, [address], [address], [facility] [employer] 12/24/2021 16:08:53 12/27/2021 text/html Heather is here to day for a routine OB visit. She is currently at 37.6 weeks gestation. She has no complaints or questions. She is taking vitamins. She has felt movement. She denies the presence of vaginal bleed, leaking fluid, abdominal cramps, nausea, vomiting. There are no identifiable risk factors for pre-term labor. JESUS CURTIS, [facility] [place], [address], [facility] [employer] 01/19/2022 21:51:29 12/30/2021 text/html Heather is here to day for a routine OB visit. She is currently at 38.2 weeks gestation. She has no complaints or questions. She is taking vitamins. She has felt movement. She denies the presence of vaginal bleed, leaking fluid, nausea, vomiting. She has noted cramping and contractions [facility] [place], [address], [facility] [employer] IV 12/30/2021 10:29:23 01/02/2022 text/html Heather is here to day for a routine OB visit. She is currently at 38.5 w gestation. She has no complaints or questions. She has no s/s of preeclampsia to report at this time. She is taking vitamins. She has felt movement. She denies the presence of vaginal bleed, leaking fluid, abdominal cramps, nausea, vomiting. There are no identifiable risk factors for pre-term labor. JESUSBLAINE CURTIS, [address] [place], [address], [facility] [employer] IV 01/02/2022 11:42:36 02/13/2022 text/html VisitReported bypatient.Onset/Theresa g:date of delivery: (01/05/2022) Quality: Context:feeding choice: Patient is here for post visit Oksana Yo, [address] [place], [address], [facility] [employer] IV 02/17/2022 12:09:03 OBGyn Episode Ob Episode Information Episode Created Date Number of Fetuses Patient Bloodtype Patient rh Status Prepregnancy Weight lbs Domestic Partner Domestic Partner Phone Father Name Corporate Development Intern Status 06/26/19 22 1 O Positive CLOSED Fetus Data First Name Last Name Admitted to NICU Weight (g) Sex Living Outcome Pediatric Complications Fetus ID Race Codes Race Delivery Type 4252.42 5 F Full Term [id number] White Problems Problem Notes Problem Name Start Date End Date Resolution Snomed Code Not e -induced hypertension 34298494 cbc, cmp weeklyNST twice a weekBPP weekly Large for gestation age fetus 436975942 95%ile, IOL at 39 weeks Normal in multigravida 462267045391944 Clifford Calculation Initial Clifford Date Initial Exam Date Initial Exam Provider Initial Ultrasound Date Last Menstrual Period Date Ultra Sound Weeks Gestation 01/11/2022 05/27/2021 05/27/2021 7 Eighteen To Twenty Week Clifford Update Ultra Sound Date Fundal Height At Umbil Quickening Date Ultra Sound Latest Weeks Gestation Final Clifford Confirmed By Final Clifford Confirmed Date Final Clifford Date Ultra Sound Latest Days Gestation 0 0 Pre- Flowsheet Flowsheet Date 06/25/2021 Moreno Score Blood Edema Fundus Height Fundus Units Glucose Ketones Leukocytes Nitrite Labor Signs Protein Cervic Dilation Cervic Effacement Cervic Station Type Weight in lbs Pre/Post Dialysis Refused Weight 191.903909842331 BP Diastolic BP Location Tested BP Systolic BP Type 76 112 Fetus Heart Rate Present A 169 Fetus Movement Comments orientation to practice. fir st trimester teaching. S/S SAB. RTC 4 weeks. Nob labs today. Flowsheet Date 07/26/2021 Moreno Score Blood Edema Fundus Height Fundus Units Glucose Ketones Leukocytes Nitrite Labor Signs Protein Cervic Dilation Cervic Effacement Cervic Station none none none neg Type Weight in lbs Pre/Post Dialysis Refused Weight 195.915666355393 BP Diastolic BP Location Tested BP Systolic BP Type 70 110 Fetus Heart Rate Present A 145 Fetus Movement A Yes Comments 07/26/21: discussed penta, und ecided, will let me know at the next visit, PA sent for anatomy US Flowsheet Date 08/26/2021 Moreno Score Blood Edema Fundus Height Fundus Units Glucose Ketones Leukocytes Nitrite Labor Signs Protein Cervic Dilation Cervic Effacement Cervic Station none 20 none none neg Type Weight in lbs Pre/Post Dialysis Refused With clothes 197.837716785141 BP Diastolic BP Location Tested BP Systolic BP Type 80 R arm 120 sitting Fetus Heart Rate Present A 153 Fetus Movement A Yes Comments 08/26/21: Anatomy scan complet e, LLP noted will send PA for f/u US. Patient declined penta screen Flowsheet Date 09/25/2021 Moreno Score Blood Edema Fundus Height Fundus Units Glucose Ketones Leukocytes Nitrite Labor Signs Protein Cervic Dilation Cervic Effacement Cervic Station none 24 cm none [place] Graf neg Type Weight in lbs Pre/Post Dialysis Refused Weight 203.451357720645 BP Diastolic BP Location Tested BP Systolic BP Type 78 132 Fetus Heart Rate Present A 150 Fetus Movement A Yes Comments 09/25/21: US showing that LLP has resolved. 28 week labs next visit. Flowsheet Date 10/25/2021 Moreno Score Blood Edema Fundus Height Fundus Units Glucose Ketones Leukocytes Nitrite Labor Signs Protein Cervic Dilation Cervic Effacement Cervic Station none 28 none none neg Type Weight in lbs Pre/Post Dialysis Refused Weight 207.053418876722 BP Diastolic BP Location Tested BP Systolic BP Type 70 120 sitting Fetus Heart Rate Present A 145 Present Fetus Movement A Yes Comments 10/25/21: 28 week labs drawn t [place]. Flowsheet Date 11/08/2021 Moreno Score Blood Edema Fundus Height Fundus Units Glucose Ketones Leukocytes Nitrite Labor Signs Protein Cervic Dilation Cervic Effacement Cervic Station trace 30 none none neg Type Weight in lbs Pre/Post Dialysis Refused Weight 208.650173597786 BP Diastolic BP Location Tested BP Systolic BP Type 70 110 sitting Fetus Heart Rate Present A 143 Fetus Movement A Yes Comments Noah graf occasionally. Otherwise doing well. Desires 39 week IOL. Flowsheet Date 11/22/2021 Moreno Score Blood Edema Fundus Height Fundus Units Glucose Ketones Leukocytes Nitrite Labor Signs Protein Cervic Dilation Cervic Effacement Cervic Station none 33 cm none none 1+ Type Weight in lbs Pre/Post Dialysis Refused Weight 211.780076030641 BP Diastolic BP Location Tested BP Systolic BP Type 82 R arm 134 sitting Fetus Heart Rate Present A 151 Fetus Movement A Yes Comments 11/22/21: Elevated BP without hypertension, labs obtained, off work until Sunday 11/26 Flowsheet Date 11/25/2021 Moreno Score Blood Edema Fundus Height Fundus Units Glucose Ketones Leukocytes Nitrite Labor Signs Protein Cervic Dilation Cervic Effacement Cervic Station none none neg Type Weight in lbs Pre/Post Dialysis Refused Weight 209.277729525417 BP Diastolic BP Location Tested BP Systolic BP Type 80 122 Fetus Heart Rate Present A 140 Present Fetus Movement A Yes Comments NST categ 1 today. pj veillance with twice weekly NST and weekly BPP. PIH precautions Flowsheet Date 11/28/2021 Moreno Score Blood Edema Fundus Height Fundus Units Glucose Ketones Leukocytes Nitrite Labor Signs Protein Cervic Dilation Cervic Effacement Cervic Station none none none neg Type Weight in lbs Pre/Post Dialysis Refused Weight 208.473575481133 BP Diastolic BP Location Tested BP Systolic BP Type 78 122 Fetus Heart Rate Present A 135 Fetus Movement A Yes Comments Pt asking about 37 wks IOL d /t HTN. Discussed that currently no hypertension is noted and therefore IOL @ 37 wks not indicated. If she desires 39 wk IOL we can accommodate that. Early term IOL only indicated if BP range changes to diagnostic range. She was also confused about APFT - she was told she gets US twice weekly. Had NST w/BPP on Thursday. Informed her US is only done once weekly. Flowsheet Date 12/02/2021 Moreno Score Blood Edema Fundus Height Fundus Units Glucose Ketones Leukocytes Nitrite Labor Signs Protein Cervic Dilation Cervic Effacement Cervic Station none 37 cm none none neg Type Weight in lbs Pre/Post Dialysis Refused With clothes 210.910878434161 BP Diastolic BP Location Tested BP Systolic BP Type 78 L arm 126 sitting Fetus Heart Rate Present A 135 Fetus Movement A Yes Comments NST reactive S>D- patient ca se to submit PA for growth next visitc/o pelvic pressure relieved adal wearing maternity belt Flowsheet Date 12/05/2021 Moreno Score Blood Edema Fundus Height Fundus Units Glucose Ketones Leukocytes Nitrite Labor Signs Protein Cervic Dilation Cervic Effacement Cervic Station none neg Type Weight in lbs Pre/Post Dialysis Refused Weight 211.874986113555 BP Diastolic BP Location Tested BP Systolic BP Type 70 110 sitting Fetus Heart Rate Present Fetus Movement Comments growth US today 95%ile Flowsheet Date 2021 Moreno Score Blood Edema Fundus Height Fundus Units Glucose Ketones Leukocytes Nitrite Labor Signs Protein Cervic Dilation Cervic Effacement Cervic Station none none neg Type Weight in lbs Pre/Post Dialysis Refused Weight 208.659475202913 BP Diastolic BP Location Tested BP Systolic BP Type 60 110 sitting Fetus Heart Rate Present A 140 Fetus Movement A Yes Comments NST reactive. Labs reviewed. Feeling anxious about delivery plans and childcare. Will plan 39 week IOL if not medically indicated prior to that. Flowsheet Date 12/12/2021 Moreno Score Blood Edema Fundus Height Fundus Units Glucose Ketones Leukocytes Nitrite Labor Signs Protein Cervic Dilation Cervic Effacement Cervic Station trace Type Weight in lbs Pre/Post Dialysis Refused Weight 210.247548719958 BP Diastolic BP Location Tested BP Systolic BP Type 80 112 Fetus Heart Rate Present Fetus Movement Comments NST and BPP today declines a ny Pre E symptoms Flowsheet Date 12/17/2021 Moreno Score Blood Edema Fundus Height Fundus Units Glucose Ketones Leukocytes Nitrite Labor Signs Protein Cervic Dilation Cervic Effacement Cervic Station none 38 wks none none neg Type Weight in lbs Pre/Post Dialysis Refused Weight 214.720262428402 BP Diastolic BP Location Tested BP Systolic BP Type 78 122 Fetus Heart Rate Present A 135 Present Fetus Movement A Yes Comments NST reactive. no s/s of pre- e. 2 variable decels noted on NST. sent to US 01/27 bpp Flowsheet Date 12/20/2021 Moreno Score Blood Edema Fundus Height Fundus Units Glucose Ketones Leukocytes Nitrite Labor Signs Protein Cervic Dilation Cervic Effacement Cervic Station none Backpain neg 4cm 60% - 3 Type Weight in lbs Pre/Post Dialysis Refused Weight 216.119224533427 BP Diastolic BP Location Tested BP Systolic BP Type 84 128 Fetus Heart Rate Present A 135 Present Fetus Movement A Yes Comments States she had GBS done alre nasir and results are pending. Patient coming in for cramping and significant back pain. To triage for labor check. RTC if undelivered. Flowsheet Date 12/24/2021 Moreno Score Blood Edema Fundus Height Fundus Units Glucose Ketones Leukocytes Nitrite Labor Signs Protein Cervic Dilation Cervic Effacement Cervic Station Type Weight in lbs Pre/Post Dialysis Refused Weight 215.950281654114 BP Diastolic BP Location Tested BP Systolic BP Type 80 128 Fetus Heart Rate Present A 140 Fetus Movement A Yes Comments NST reactive. Saw MFM and re ports they did not need to see her back. CBC, CMP and pc ratio today. Precautions reviewed. Plan NST/CHAYITO on Thursday Flowsheet Date 12/27/2021 Moreno Score Blood Edema Fundus Height Fundus Units Glucose Ketones Leukocytes Nitrite Labor Signs Protein Cervic Dilation Cervic Effacement Cervic Station none none neg Type Weight in lbs Pre/Post Dialysis Refused With clothes 216.844066081427 BP Diastolic BP Location Tested BP Systolic BP Type 82 L arm 132 sitting Fetus Heart Rate Present A 140 Fetus Movement A Yes Comments Labs from 12/24 reviewed. BPP 01/27. PTL and preeclampsia precautions reviewed. FKC and when to seek care for DFM reviewed. RTC as already scheduled. Flowsheet Date 12/30/2021 Moreno Score Blood Edema Fundus Height Fundus Units Glucose Ketones Leukocytes Nitrite Labor Signs Protein Cervic Dilation Cervic Effacement Cervic Station none Uterine Contract ions trace 4cm 60% -1 Type Weight in lbs Pre/Post Dialysis Refused Weight 213.514179919257 BP Diastolic BP Location Tested BP Systolic BP Type 88 128 Fetus Heart Rate Present A 152 Present Fetus Movement A Yes Comments Patient comes in c/o severe abdominal pain that is constant. States she called LD and the nurse there told her not to come but to instead come to office first. VE and viability check, then sent immediately to [facility] for further eval. Hospital to collect weekly labs. Oksana aware. Hospital aware. Flowsheet Date 01/02/2022 Mroeno Score Blood Edema Fundus Height Fundus Units Glucose Ketones Leukocytes Nitrite Labor Signs Protein Cervic Dilation Cervic Effacement Cervic Station none none none trace Type Weight in lbs Pre/Post Dialysis Refused With clothes 214.486053645912 BP Diastolic BP Location Tested BP Systolic BP Type 82 R arm 124 sitting Fetus Heart Rate Present A 130 Present Fetus Movement A Yes Comments Denies S/S preeclampsia. NST reactive. BPP 01/27 . Labs today. PTL, preeclampsia, DFM precautions reviewed. RTC PP. Report to IOL as scheduled this weekend. Spoke with Dl on US finding. Plan to keep IOL as scheduled. Flowsheet Date 02/13/2022 Moreno Score Blood Edema Fundus Height Fundus Units Glucose Ketones Leukocytes Nitrite Labor Signs Protein Cervic Dilation Cervic Effacement Cervic Station Type Weight in lbs Pre/Post Dialysis Refused With clothes 185.585934751705 BP Diastolic BP Location Tested BP Systolic BP Type 60 110 sitting Fetus Heart Rate Present Fetus Movement Comments Menstrual History Last Menstrual Date Menses Monthly On Bcp Conception Prior Menses Frequency Hcg Plus Date Menarche Onset Age Genetic Screening And Infection History Question Response Note Recent Travel History Outside of Country false Cystic Fibrosis false Any Other Genetic History false Alejandro Disease false Other Infection History false Thalassemia (Vincentian, Cape Verdean, Mediterranean, Or Background): MCV < 80 false Patient Or Baby's Father Had A Child With Defects Not Listed Above false Live With Someone With TB Or Exposed To TB false Patient's Age Will Be 35 Years Or Older At Estim ated Date of Delivery false Recurrent Loss, Or A Stillbirth false Hemoglobinopathy Or Carrier false Patient Or Partner Has History Of Genital Herpes false Intellectual Disability/Autism false Maternal Metabolic Disorder (eg, Type 1 Diabetes , PKU) false History of Hepatitis false Carmelo-Sachs (eg, Caodaism, Cajun, Czech-[place]) f alse History Of STD, Gonorrhea, Chlamydia, HPV, Syphi lis false Prior GBS-infected child false History of HIV false Personal or Family History o f Neural Tube Defect (Meningomyelocele, Spina Bifida, Or Anencephaly) false Hemophilia Or Other Blood Disorders false Mental Retardation/Autism false Roberto's Chorea false If Yes, Was Person Tested For Fragile X? false Other Inherited Genetic Or Chromosomal Disorder false If Yes, Agent(s) And Strength/Dosage false Sickle Cell Disease Or Trait () false Personal or Family History of Congenital Heart D efect false Rash Or Viral Illness Since Last Menstrual Perio d false Muscular Dystrophy false Medications (including Suppl ements, Vitamins, Herbs, OTC Drugs), Illicit/Recreational Drugs, Alcohol false Other Structural Defect false Down Syndrome false Delivery Information Delivery Date Delivery Type Labor Anesthesia Weeks Gestation Incision Type Labor Labor Length Hrs Delivered By Post Complications Tubal Sterilization Discharge Date Comments 2 Sponta neous 31.6 La Nena Lynch CNGonzalez Discharge Information Feeding Method Contraceptive Method Maternal HG B and HCT Levels Bottle none
--- OUTSIDE RECORDS SUMMARY | 2024-06-06 17:40 | XMS_ITS | Encounter Summary ---
Author Organization [facility] Address [address] [place] [address] Care Team Providers Care Work Over Rig Operator Name Role Phone Denise Rodriguez COLT Primary Care Provider [phone] Encounter Details Date Type Department Care Team (Late st Contact Info) Description 01/08/2022 Hospital Follow-up Call [facility] [place] [address] Elva Perry, RN Social History Tobacco Use Types Packs/Day Years Used Date Smoking Tobacco: Never Smokeless Tobacco: Never Alcohol Use Standard Drinks/Week Comments No 0 (1 standard drink = 0.6 oz pur e alcohol) AUDIT-C Answer Date Recorded Frequency of Alcohol Consumption Monthly or less 03/12/2018 Average Number of Drinks Not on file 018 Frequency of Binge Drinking Not on file 02/19 PHQ-2 Answer Date Recorded PHQ-2 Score - If the patient scores above 3, please move on to questions 3-9 0 03/01/2021 Depression Answer Date Recor ded Last EPDS Total Score 7 01/06/2022 Last EPDS Self Harm Result 01/06 Comments No Sex and Gender Information Value Date Recorded Sex Assigned at Not on file Legal Sex Female 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 No / Unsure 01/04/2022 9:42 PM CDT documented as of this encounter Functional Status * RETIRED Are you deaf or do you have serious difficulty hearing Answer Date of Assessment Author Status No 01/04/2022 9:49 PM CDT Activ e * RETIRED Are you blind or do you have serious difficulty seeing, even when wearing glasses? Answer Date of Assessment Author Status No 01/04/2022 9:49 PM CDT Activ e * Do you have serious difficulty walking or climbing stairs? Answer Date of Assessment Author Status No 01/04/2022 9:49 PM CDT Cayla Mai RN Active * Do you have difficulty dressing or bathing? Answer Date of Assessment Author Status No 01/04/2022 9:49 PM CDT Cayla Mai RN Active * Because of a physical, mental, or emotional condition, do you have difficulty doing errands alone such as visiting a doctor's office or shopping? Answer Date of Assessment Author Status No 01/04/2022 9:49 PM CDT Cayla Mai RN Active documented as of this encounter Mental Status * Because of a physical, mental, or emotional condition, do you have serious difficulty concentrating, remembering, or making decisions? 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
--- OUTSIDE RECORDS SUMMARY | 2024-06-06 17:40 | XMS_ITS | Encounter Summary ---
Author Organization [facility] Address [address] [place] [address] Care Team Providers Care Associate Media Planner Name Role Phone Denise Rodriguez Primary Care Provider [phone] Encounter Details Date Type Department Care Team (Late st Contact Info) Description 05/13/2020 [employer] Message Enc [facility] Medical Group Family & Internal Medicine [id number] [place] [address] Denise Rodriguez FNP [address] [place] [address] RE: FW: FW: FW: Test Results Social History Tobacco Use Types Packs/Day Years Used Date Smoking Tobacco: Never Smokeless Tobacco: Never Alcohol Use Standard Drinks/Week Comments No 0 (1 standard drink = 0.6 oz pur e alcohol) AUDIT-C Answer Date Recorded Frequency of Alcohol Consumption Monthly or less 03/12/2018 Average Number of Drinks Not on file 018 Frequency of Binge Drinking Not on file 02/19 Comments No Sex and Gender Information Value Date Recorded Sex Assigned at Not on file Legal Sex Female 8:18 AM JOB BOSS Gender Identity Not on file Sexual Orientation Straight 03/12/2018 11 :35 AM JOB BOSS COVID-19 Exposure Response Date Recorded In the last month, have you been in contact with someone who was confirmed or suspected to have Coronavirus / COVID-19? No / Unsure 05/08/2020 2:26 PM JOB BOSS documented as of this encounter Plan of Treatment Not on file documented as of this encounter Visit Diagnoses Not on filedocumented in this encounter Care Teams Associate Media Planner Relationship Specialty Start Date End Date Denise Rodriguez FNP [address] [place] [address] PCP - General FAMILY PRACTICE 03/12/18 documented as of this encounter
--- OUTSIDE RECORDS SUMMARY | 2024-06-06 17:40 | XMS_ITS | Encounter Summary ---
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 No / Unsure 05/08/2020 2:26 PM SHRIMPING BOAT CAPTAIN documented as of this encounter Plan of Treatment Not on file documented as of this encounter Visit Diagnoses Not on filedocumented in this encounter Care Teams Care Taker Relationship Specialty Start Date End Date Denise Rodriguez FNP [address] [place] [address] PCP - General FAMILY PRACTICE 03/12/18 documented as of this encounter
--- OUTSIDE RECORDS SUMMARY | 2024-06-06 17:41 | XMS_ITS | Encounter Summary ---
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 I'd recommend a booster followed by an anti-HBs titer one month after vaccination. RVISOR INSPECTION * Casey Dias DO - 04/16/2020 4:09 PM CST They are all negative. I'd recommend Hepatitis B vaccination if she's never had that. Did she talk to her occupational health nurse at her place of employment? Usually they have protocols in place because some of this depends on the other person and their status regarding Hep B/C and HIV. Could repeat testing at 3 and 6 months if she is unsure. RVISOR INSPECTION documented in this encounter Plan of Treatment Not on file documented as of this encounter Visit Diagnoses Diagnosis Incomplete immunization status- Primary documented in this encounter Care Teams Physician/Internist Relationship Specialty Start Date End Date Denise Rodriguez FNP [address] [place] [address] PCP - General FAMILY PRACTICE 03/12/18 documented as of this encounter
--- OUTSIDE RECORDS SUMMARY | 2024-06-06 17:41 | XMS_ITS | Encounter Summary ---
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 EL MACHINE OPERATOR * Casey Dias DO - 04/09/2020 4:11 PM CST Need to see these results prior to making decision. EL MACHINE OPERATOR documented in this encounter Plan of Treatment Not on file documented as of this encounter Visit Diagnoses Diagnosis Dysuria- Primary documented in this encounter Care Teams Space Officer Relationship Specialty Start Date End Date Denise Rodriguez FNP [address] [place] [address] PCP - General FAMILY PRACTICE 03/12/18 documented as of this encounter
--- OUTSIDE RECORDS SUMMARY | 2024-06-06 17:41 | XMS_ITS | Encounter Summary ---
Author Organization [facility] Address [address] [place] [address] Care Team Providers Care Item Processing Clerk Name Role Phone Adryan Duran MD, Miko Roldan Primary Care Provider [phone] Denise Rodriguez Primary Care Provider [phone] Encounter Details Date Type Department Care Team (Late st Contact Info) Description 02/07/2014 Lab Requisition [facility] [address] [place] [address] Unknown, Provider Social History Tobacco Use Types Packs/Day Years Used Date Smoking Tobacco: Never Alcohol Use Standard Drinks/Week Comments No 0 (1 standard drink = 0.6 oz pur e alcohol) Sex and Gender Information Value Date Recorded Sex Assigned at Not on file Gender Identity Not on file Sexual Orientation Not on file documented as of this encounter Functional Status Functional Status Response Date of Assess ment Is person deaf or have serious hearing difficult y? No 12/11/2013 Is person blind or have serious difficulty seein g? No 12/11/2013 Does person have serious dif ficulty walking/climbing stairs? No 12/11/2013 Does person have difficulty dressing/bathing? No 12/11/2013 Does person have difficulty doing errands alone? No 12/11/2013 Cognitive Status Response Date of Assessm ent Does person have difficulty concentrating/remembering/making decisions? No 12/11/2013 documented as of this encounter Plan of Treatment Not on file documented as of this encounter Procedures Procedure Name Priority Date/Time Associated Diagnosis Comments RUBEOLA ANTIBODY IGG Routine 02/07/2014 12:45 PM CDT MUMPS ANTIBODY IGG Routine 02/07/2014 12 :45 PM CDT VARICELLA ZOSTER ANTIBODY IGG Routine 02/07/2014 12:45 PM CDT RUBELLA ANTIBODY IGG Routine 02/07/2014 12:45 PM CDT HEPATITIS B SURFACE ANTIBODY Routine 02/07/2014 12:45 PM CDT documented in this encounter Results * VARICELLA ZOSTER ANTIBODY IGG (02/07/2014 12:45 PM CDT) Varicella zoster Virus Antibody IgG 899.6 IV 02/09/2014 6:09 PM CDT [facility] [employer] ([facility]) Comment: INTERPRETIVE INFORMATION: VZV Ab, IgG 134 IV or less ....... Negative - No significant level of detectable IgG varicella- zoster antibody. 135 -165 IV .......... Equivocal - Repeat testing in 10-14 days may be helpful. 166 IV or greater .... Positive - IgG antibody to varicella-zoster detected, which may indicate a current or past varicella-zoster infection. The best evidence for current infection is a significant change on two appropriately timed specimens, where both tests are done in the same laboratory at the same time. Blood specimen (specimen) BLOOD SPECIMEN / Unknown Venipuncture / Unknown 02/07/2014 12:45 PM CDT 02/07/2014 6:52 PM CDT Provider Unknown LAB - CHEMISTRY JIHAN ANNE [employer] [facility]) [address] [place] [address], [facility] * RUBEOLA ANTIBODY IGG (02/07/2014 12:45 PM CDT) Measles (Rubeola) Antibody IgG >300.0 AU/mL 02/09/2014 5:18 PM CDT [facility] [employer] ([facility]) Comment: INTERPRETIVE INFORMATION: Measles (Rubeola) Antibody, IgG 24.9 AU/mL or less........ Negative - No significant level of detectable measles (rubeola) IgG antibody. 25.0-29.9 AU/mL .......... Equivocal - Repeat testing in 10-14 days may be helpful. 30.0 AU/mL or greater .... Positive - IgG antibody to measles (rubeola) detected which may indicate a current or past exposure/immunization to measles (rubeola). The best evidence for current infection is a significant change on two appropriately timed specimens, where both tests are done in the same laboratory at the same time. Blood specimen (specimen) BLOOD SPECIMEN / Unknown Venipuncture / Unknown 02/07/2014 12:45 PM CDT 02/07/2014 6:52 PM CDT Provider Unknown LAB - CHEMISTRY JIHAN [employer] Performing Organization Address [facility] Co de Phone Number [facility] [employer] ([facility]) [address] [place] [address] * MUMPS ANTIBODY IGG (02/07/2014 12:45 PM CDT) [facility] Mumps Virus Antibody IgG 21.2 AU/mL 02/09/2014 5:20 PM CDT [facility] [employer] ([facility]) Comment: INTERPRETIVE INFORMATION: Mumps Ab, IgG by ALEJANDRO 8.9 AU/mL or less .... Negative - No significant level of detectable IgG mumps virus antibody 9.0-10.9 AU/mL ....... Equivocal - Repeat testing in 10-14 days may be helpful 11.0 AU/mL or greater: Positive - IgG antibody to mumps virus detected, which may indicate a current or past exposure/ immunization to mumps virus. The best evidence for current infection is a significant change on two appropriately timed specimens, where both tests are done in the same laboratory at the same time. Blood specimen (specimen) BLOOD SPECIMEN / Unknown Venipuncture / Unknown 02/07/2014 12:45 PM CDT 02/07/2014 6:52 PM CDT Provider Unknown LAB - CHEMISTRY JIHAN ANNE [facility] [employer] ([facility]) [address] [place] [address], [facility] * RUBELLA ANTIBODY IGG (02/07/2014 12:45 PM CDT) Rubella Antibody IgG Positive - Immune 02/07/2014 8:15 PM CDT [facility] Blood BLOOD SPECIMEN / Unknown Venipuncture / Unknown 02/07/2014 12:45 PM CDT 02/07/2014 6:52 PM CDT Provider Unknown LAB - SEROLOGY ORDER KENYA [facility] [address] [place] [address] * HEPATITIS B SURFACE ANTIBODY (02/07/2014 12:45 PM CDT) Pathologist [facility] HBsAb Non Reactive Non Reactive 02/07/2014 8:06 PM CDT [facility] Blood BLOOD SPECIMEN / Unknown Venipuncture / Unknown 02/07/2014 12:45 PM CDT 02/07/2014 6:52 PM CDT Provider Unknown LAB - CHEMISTRY ORDE RABLES Performing Organization Address City/[facility] Co de Phone Number [facility] [address] [place] [address] documented in this encounter Visit Diagnoses Not on filedocumented in this encounter Care Teams Item Processing Clerk Relationship Specialty Start Date End Date Miko Cornelius Jr., MD [address] [place], [place] [address] [address] [place] [address] PCP - General Internal Medicine 05/31/14 12/09/21 Denise Rodriguez APRN-[employer] [address] [place] [address] PCP - General Nurse Practitioner 12/10/21 documented as of this encounter
--- OUTSIDE RECORDS SUMMARY | 2024-06-06 17:42 | XMS_ITS | Encounter Summary ---
Author Organization [facility] Address [address] [place] [address] Care Team Providers Care Tc Operator Name Role Phone Denise Rodriguez Primary Care Provider [phone] Encounter Details Date Type Department Care Team (Late st Contact Info) Description 08/10/2018 Bench[employer] Message Enc [facility] Medical Group Family & Internal Medicine [facility] [address] [place] [id number] Denise Rodriguez FNP [address] [place] [address] RE: FW: Medication Questions Social History Tobacco Use Types Packs/Day Years Used Date Smoking Tobacco: Never Smokeless Tobacco: Never Alcohol Use Standard Drinks/Week Comments No 0 (1 standard drink = 0.6 oz pur e alcohol) AUDIT-C Answer Date Recorded Frequency of Alcohol Consumption Monthly or less 03/12/2018 Average Number of Drinks Not on file 018 Frequency of Binge Drinking Not on file 02/19 Comments Unknown Sex and Gender Information Value Date Recorded Sex Assigned at Not on file 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
--- OUTSIDE RECORDS SUMMARY | 2024-06-06 17:42 | XMS_ITS | Patient Health Summary ---
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 This disclosure is being madepursuant to the Care Everywhere program and may not contain all information available regarding this patient. Last updated 18.[facility] Allergies No known active allergies Medications * Be aware that medications may not be up to date on this document. Alwaysverify current medications with the patient. * VITAMINS PO Take 1 Tab by mouth once daily. * ferrous sulfate 325 (65 FE) MG tablet(Started 12/14/2013) Take 1 Tab by mouth daily with breakfast. 2 refills left * oxyCODONE-acetaminophen (PERCOCET) 5-325 MG tablet(Started 12/14/2013) Take 1 Tab by mouth every 4 hours as needed for Pain. * ibuprofen (MOTRIN) 600 MG tablet(Started 12/14/2013) Take 1 Tab by mouth 4 times daily. 2 refills left * sertraline (ZOLOFT) 100 MG tablet(Started 05/31/2014) Take 1 Tab by mouth once daily. 5 refills left * azithromycin (ZITHROMAX) 250 MG tablet(Started 06/12/2014) Take 2 pills now, then 1 tab daily * meloxicam (MOBIC) 7.5 MG tablet(Started 06/14/2014) Take 1 Tab by mouth 2 times daily. * pseudoephedrine (SUDAFED) 30 MG tablet(Started 06/15/2014) Take 1 Tab by mouth 3 times daily as needed for Nasal Congestion. * ALPRAZolam (XANAX) 0.25 MG tablet(Started 06/20/2014) Take 1 Tab by mouth 3 times daily as needed for Anxiety. * amphetamine-dextroamphetamine XR 24hr (ADDERALL XR) 20 MG capsule(Started 09/22/2014) Take 1 Cap by mouth once daily. * amphetamine-dextroamphetamine XR 24hr (ADDERALL XR) 20 MG capsule(Started 09/22/2014) Take 1 Cap by mouth once daily. Do not fill until 30 days after date on script * amphetamine-dextroamphetamine XR 24hr (ADDERALL XR) 20 MG capsule(Started 09/22/2014) Take 1 Cap by mouth once daily. Do not fill until 60 days after date on script * docusate sodium (COLACE) 100 MG capsule(Started 10/03/2014) Take 1 Cap by mouth 2 times daily as needed for Constipation 2 refills left * triamcinolone acetonide (Kenalog) 0.1 % ointment Apply to affected area 2 times daily Reasons: Skin Inflammation Active Problems No known active problems Immunizations * TDAP (7yrs+)(Given 12/12/2013) Social History Tobacco Use Types Packs/Day Years Used Date Smoking Tobacco: Never Smokeless Tobacco: Never Alcohol Use Standard Drinks/Week Comments No 0 (1 standard drink = 0.6 oz pur e alcohol) Sex and Gender Information Value Date Recorded Sex Assigned at Not on file Gender Identity Not on file Sexual Orientation Not on file Last Filed Vital Signs Vital Sign Reading Time Taken Comments Blood Pressure 118/74 12/10/2021 1:04 PM CDT Pulse 89 12/10/2021 1:04 PM CDT Temperature 36.8 C (98.2 F) 12/14/2013 8:25 AM CDT Respiratory Rate 18 12/10/2021 1:04 PM CDT Oxygen Saturation 96% 12/13/2013 7:28 AM CDT Inhaled Oxygen Concentration - - Weight 94.8 kg (209 lb) 12/10/2021 1:04 PM CDT Height 162.6 cm (5' 4 ) 12/10/2021 1:04 PM CDT Body Mass Index 35.87 12/10/2021 1:04 PM CDT Procedures * DERMATOPATHOLOGY(Performed 11/19/2022) Performed for Neoplasm of uncertain behavior of skin * PROTEIN CREATININE RATIO URINE RANDOM PNL(Performed 12/10/2021) * URINALYSIS W/MICROSCOPIC REFLEX TO CULTURE(Performed 12/10/2021) * SONOGRAM - COMPLETE(Performed 12/10/2021) Performed for Second (HCC), Encounter for ultrasound (HCC), Elevated blood pressurecomplicating , antepartum, unspecified trimester (HCC) * TSH(Performed 06/23/2014) Performed for Routine general medical examination at a health care facility * LIPID PROFILE(Performed 06/23/2014) Performed for Routine general medical examination at a health care facility * COMPREHENSIVE METABOLIC PANEL(Performed 06/23/2014) Performed for Routine general medical examination at a health care facility * CBC W AUTO DIFFERENTIAL(Performed 06/23/2014) Performed for Routine general medical examination at a health care facility * HCG BLOOD QUALITATIVE - POINT OF CARE(Performed 05/31/2014) Performed for Routine general medical examination at a health care facility * VARICELLA ZOSTER ANTIBODY IGG(Performed 02/07/2014) * RUBEOLA ANTIBODY IGG(Performed 02/07/2014) * MUMPS ANTIBODY IGG(Performed 02/07/2014) * RUBELLA ANTIBODY IGG(Performed 02/07/2014) * HEPATITIS B SURFACE ANTIBODY(Performed 02/07/2014) * PATHOLOGY/CYTOLOGY REPORT ORDER(Performed 12/15/2013) * HGB HCT PANEL(Performed 12/13/2013) * CBC W AUTO DIFFERENTIAL(Performed 12/12/2013) * HGB HCT PANEL(Performed 12/12/2013) * PATHOLOGY TISSUE EXAM (STL)(Performed 12/12/2013) Performed for , incidental (HCC) * URINE MICROSCOPIC ONLY(Performed 12/11/2013) Performed for , incidental (HCC) * URINALYSIS REFLEX TO MICROSCOPIC NO CULTURE(Performed 12/11/2013) Performed for , incidental (HCC) * NEURAXIAL BLOCK(Performed 12/11/2013) * TYPE + SCREEN PANEL(Performed 12/11/2013) Performed for , incidental (HCC) * CBC W AUTO DIFFERENTIAL(Performed 12/11/2013) Performed for , incidental (HCC) * BLOOD TYPE VERIFICATION(Performed 11/14/2013) * COAGULATION PANEL W D-DIMER(Performed 11/14/2013) Performed for Vaginal bleeding in , third trimester (HCC) * TYPE + SCREEN PANEL(Performed 11/14/2013) Performed for Vaginal bleeding in , third trimester (HCC) * CBC W AUTO DIFFERENTIAL(Performed 11/14/2013) Performed for Vaginal bleeding in , third trimester (HCC) * URINALYSIS REFLEX MICROSCOPIC REFLEX CULTURE(Performed 08/24/2013) Performed for state, incidental (HCC) * URINE MICROSCOPIC ONLY REFLEX TO CULTURE(Performed 08/24/2013) Performed for state, incidental (HCC) Results * DERMATOPATHOLOGY (11/19/2022 3:33 AM CDT) Case Report Dermatopathology Report Case: [id number] Authorizing Provider: Pati Espinoza, Collected: 11/19/2022 03:33 AM PA-C Ordering Location: [facility] DermPath Lab Received: 11/20/2022 01:07 PM Pathologist: Gonzalez Cortez MD Specimen: Skin, mid tongue 2:31 PM CDT DERMATOPATHOLOGY LABORATORY Final Diagnosis Specimen A. 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 The specimen consists of a shave biopsy measuring 3x2x2 mm. Jar 0. 2:31 PM CDT DERMATOPATHOLOGY LABORATORY Microscopic Description Specimen A. SKIN, mid tongue: Sections show a proliferation of blood vessels in lobules lined by uniform endothelial cells and by fibrous septa. The stroma is edematous and contains a mixed inflammatory cell infiltrate. The overlying epidermis is eroded. Additional deeper sections were obtained and reviewed. 2:31 PM CDT DERMATOPATHOLOGY LABORATORY Disclaimer An external and internal positive and negative controls are appropriate for the histochemical, immunohistochemical and immunofluorescence stain(s) in this case (if any), except where stated explicitly. The performance characteristics of the stain(s) cited in this report were developed and its performance characteristic determined by the Dermatopathology Laboratory at [facility], directed by Dr. Jael Cortez. These tests need not be, and therefore are not, approved by the [place] Food and Drug Administration. The tests are used for clinical purposes. Billing Codes Specimen Charges Stain Charges 18345 1 3 2:31 PM CDT DERMATOPATHOLOGY LABORATORY Embedded Images 3 2:31 PM CDT DERMATOPATHOLOGY LABORATORY Pathology/Cytolo gy TISSUE SPECIMEN FROM SKIN / Unknown 11/19/2022 3:33 AM CDT 11/20/2022 1:07 PM CDT Pati Espinoza PA-C LAB - PATHOL OGY/CYTOLOGY ORDERABLES DERMATOPATHOLOGY LABORATORY [facility] - Department of Dermatology [facility] Medicine [address] [place] [address], 3rd [address] [place], [place] [id number] [place] [address] * URINALYSIS W/MICROSCOPIC REFLEX TO CULTURE (12/10/2021 2:25 PM CDT) Pathologist [facility] Color UA TNP [facility] Comment: TEST NOT PERFORMED No suitable specimen received. Please review the test requirements at [email or web address] Performed at: Track [facility] [address] [place] [address] FREDDIE SWANSON DO,MPH 12/10/2021 2:25 PM CDT 12/17/2021 12:40 PM CDT Siva Mitchell MD LAB - URINALYSIS ORD ERABLES [facility] [address] [place] [address] * (ABNORMAL) PROTEIN CREATININE RATIO URINE RANDOM PNL (12/10/2021 2:25 PM CDT) Pathologist [facility] Creatinine Urine 109 20 - 275 mg/dL [facility] Protein/Creatini ne Ratio 174(H) 21 - 161 mg/g creat [facility] Protein/Creatini ne Ratio 0.174(H) 0.021 - 0.161 mg/mg creat [facility] Protein Random Urine 19 5 - 24 mg/dL [facility] Comment: Test Performed at: Track [facility] [address] [place] [address] FREDDIE SWANSON DO,MPH 12/10/2021 2:25 PM CDT 12/17/2021 12:40 PM CDT Siva Mitchell MD LAB - URINE CHEMISTR Y ORDERABLES [facility] [address] [place] [address] * SONOGRAM - COMPLETE (12/10/2021 12:24 PM CDT) Anatomical Region Laterality Modality Other 12/10/2021 12:2 4 PM CDT Narrative 12/10/2021 2:51 PM CDT [facility] PHONE: FAX: Pat. Name: HEATHER BALES Pat. No: [id number] Study Date: 12/10/2021 12:24pm , Age: 08 1995, 26 Pregnancies: 2, Para 1 Height: 64 in Weight: 183 lb LMP: 04/06/2021 GA by LMP: 35w3d GA by US: 36w4d DONN: 01/03/2022 GA Selected: 35w3d (Outside Scan) DONN: 01/11/2022 Referring MD: Cayla Paz MD Crystalizer Tender: Basilia Mercado, MARYLIN, RDCS CPT4: 63973 BMI: 31.41 Hist/Ind: Pre-E Obesity MEASUREMENTS & AGE GROWTH EVALUATION Measurement GA Range Srce %for GA Ratios ----- ---- ------- BPD 9.0 cm 36w4d (74t1y-51k5n) Hadl BPD 84% FL/BPD 0.76 (0.71 - 0.87) HC 33.2 cm 37w6d (65l4c-20w4l) Hadl HC 76% FL/AC 0.19 (0.20 - 0.24* AC 35.6 cm 39w3d (11k7y-04b4z) Hadl AC >99 HC/AC 0.93 (0.93 - 1.12) FL 6.9 cm 35w2d (43q9k-77e4y) Hadl FL 38% CI 0.77 (0.70 - 0.86) HL 5.9 cm 34w2d (54g8d-73n6c) Reginald HL 30% Cere 4.9 cm 36w2d (25s7p-78m5q) Garett Cere62% GA for sonogram 36w4d (28v9o-54a3x) Weight Estimate: based on (BPD,HC,AC,FL) Hadlock Weight: 3371 gm (2879-3863gm) Had : 7lbs, 6oz Normal: 2692 gm (2019-3364gm) Had Wt% >97 for 35w3d Heart Rate: 156 bpm Amniotic Fluid Index: 19.4cm (07.8-24.9) Q1: 7.0cm Q2: 6.8cm Q3: 3.0cm Q4: 2.6cm Biophysical Profile: 11/25 Breathin Tone: 2 Movement: 2 AFV: 2 EVAL, PLACENTA Presentation: cephalic Placenta: posterior Heart Rate: 156 bpm Amniotic Fluid Volume: normal Anatomy!Normal!Abnormal!Suboptimal!Prev. Seen!Comments Cranium ! x ! ! ! ! Mdl (CSP/Thal! x ! ! ! ! Ventricles ! x ! ! ! ! Choroid Plexu! x ! ! ! ! Cerebellum ! x ! ! ! ! Cisterna M. ! ! ! x ! ! Orbits ! ! ! x ! ! Profile ! ! ! x ! ! Nasal Bone ! ! ! x ! ! Lip ! ! ! x ! ! Spine ! x ! ! ! ! Lungs ! x ! ! ! ! 4 Chamber Hea! x ! ! ! ! LVOT ! ! ! x ! ! RVOT ! ! ! x ! ! 3 Vessel View! x ! ! ! ! 3 Vessel Trac! x ! ! ! ! Cross-over ! x ! ! ! ! Ductal Arch ! x ! ! ! ! Aortic Arch ! x ! ! ! ! Caval View ! x ! ! ! ! Situs ! x ! ! ! ! Diaphragm ! x ! ! ! ! Stomach ! x ! ! ! ! Bowel ! x ! ! ! ! Kidneys ! x ! ! ! ! Bladder ! x ! ! ! ! 3 Vessel Cord! x ! ! ! ! Cord In! x ! ! ! ! Upper Extremi! x ! ! ! ! Hands ! x ! ! ! ! Lower Extremi! x ! ! ! ! Feet ! x ! ! ! ! External Kym! ! ! ! !Female Placental Cor! x ! ! ! ! CLINICAL SUMMARY ASSESSMENT * Hernandez IUP at 35 weeks by stated EDC from LMP * Referred to [facility] for obstetrical U/S and consultation secondary to: - Borderline hypertension (134/82 mmHg) @ 32 weeks - Proteinuria (Dip 1+, PCR 0.62) @ 32 weeks * Today's ultrasound (U/S) findings: - Living hernandez intrauterine fetus - growth is LGA - Amniotic fluid volume is subjectively normal - Placenta is clear of the cervix - Comprehensive anatomic survey appears normal, but is suboptimal - Biophysical profile (BPP) is normal (11/25) COUNSELING & RECOMMENDATIONS * Pertinent medical & obstetrical history - Medications: vitamins - Past Medical History: no DM, no CHTN, no CKD - Had UTIs as child, none treated recently - Maternal obesity Class II (BMI 35.0-39.9) - Past Obstetrical History: 1) @ 39 weeks 8#12oz 2) Current - Borderline hypertension was initially identified in current @ 32 weeks - At 32 weeks PCR was increased (0.62), then normal (0.18) a week later - She has no prior known history of chronic hypertension (CHTN) - Her BP today in the [facility] office was 118/74 mmHg and urine protein was trace - Her PLT, ALT & AST have been normal - The GDM screen was normal (128 mg/dL) * The general classification system of hypertension (HTN) in includes: - Chronic hypertension (CHTN) - Gestational hypertension (GHTN) - Preeclampsia (with and without severe features) - CHTN with superimposed preeclampsia (with and without severe features) * For a diagnosis of preeclampsia, proteinuria criteria include any of the following: - A 24-hour (or extrapolated) urine collection of >= 300 mg/day - A protein/creatinine ratio (PCR) of >= 0.3 mg/dL - A urine dipstick of >= 2+ (only if other methods not available) * In my opinion, she does not carry a hypertension diagnosis at present - It is unusual & concerning she had transient proteinuria - She is at risk for GHTN & preeclampsia * To better assess her BP trends & optimal BP management: - Either 2X-weekly BP checks in OB office, or ambulatory BP monitoring - Thresholds of BP for which she should notify her OB provider: - For trends in SBP >= 140 or DBP >= 90 mmHg - For any SBP >= 160 or DBP >= 110 mmHg * Baseline assessments are advised, if not yet done: - Urinalysis & urine culture & 24-hour urine for protein excretion - Repeat lab assessment (CBC, CMP, PCR) every 1 week - Repeat lab assessment PRN any significant change in clinical status * Supplemental U/S surveillance is advised: - Follow-up U/S for growth @ 39 weeks if undelivered - Continue 1X/week testing (NST+CHAYITO or BPP) * The 2020 ACOG+SMFM Committee Opinion #831 delivery timing recommendations: - CHTN controlled on no medications @ 38w0d - 39w6d - CHTN controlled on medications @ 37w0d - 39w6d - CHTN difficult to control @ 36w0d - 37w6d - Gestational hypertension without severe-range BP @ 37w0d - Gestational hypertension with severe-range BP @ 34w0d - Preeclampsia without severe features @ 37w0d - Preeclampsia with severe features (stable) @ 34w0d * Assuming no new problems, I would plan delivery in the 39th week * We discussed prematurity-related complications in the late & early term period COMMENTS * Findings were explained & questions were addressed & precautions were given * She was counseled that U/S may not detect all maternal- abnormalities * Thank you very much for requesting MFM participation in her obstetrical care * Consult exclusive of procedures was 45 minutes [id number] with the patient, over half of time was discussion of the diagnosis & treatment plan Siva Mitchell MD <Electronic Signature> 12/10/2021 02:51pm Madonna Figueredo DO MFM ORDERABLES * TSH (06/23/2014 11:11 AM [facility]) TSH 1.250 0.450 - 4.500 uIU/mL [facility] ACCOUNT BILL Blood specimen (specimen) BLOOD SPECIMEN / Unknown 06/23/2014 11:11 AM [facility] 06/23/2014 3:32 PM [facility] Narrative Resulting Agency Comment [facility] [address] [id number] Miko Cornelius Jr., MD LAB - CHEMISTRY O RDERAIKE Performing Organization Address [facility] de Phone Number [facility] ACCOUNT BILL * LIPID PROFILE (06/23/2014 11:11 AM [facility]) Cholesterol 160 100 - 189 mg/dL [facility] ACCOUNT BILL Triglycerides 51 0 - 114 mg/dL [facility] ACCOUNT BILL HDL Cholesterol 51 >39 mg/dL [facility] ACCOUNT BILL Comment: According to ATP-III Guidelines, HDL-C >59 mg/dL is considered a negative risk factor for CHD. VLDL Calculated 10 5 - 40 mg/dL [facility] ACCOUNT BILL LDL Calculated 99 0 - 119 mg/dL [facility] ACCOUNT BILL Comment NOT NEEDED [facility] ACCOUNT BILL Comment:Ancillary determined the test is not needed Blood specimen (specimen) BLOOD SPECIMEN / Unknown 06/23/2014 11:11 AM [facility] 06/23/2014 3:32 PM [facility] Narrative Resulting Agency Comment [facility] [place] [address] [facility] [id number] Miko Cornelius Jr., MD LAB - CHEMISTRY O HERNANDEZ Performing Organization Address [facility] de Phone Number [facility] ACCOUNT BILL * (ABNORMAL) CBC W AUTO DIFFERENTIAL (06/23/2014 11:10 AM [facility]) Only the most recent of4 resultswithin the time period is included. WBC 8.6 3.4 - 10.8 x10E3/uL [facility] ACCOUNT BILL RBC 4.90 3.77 - 5.28 x10E6/uL [facility] ACCOUNT BILL Hemoglobin 12.7 11.1 - 15.9 g/dL [facility] ACCOUNT BILL Hematocrit 38.9 34.0 - 46.6 % [facility] ACCOUNT BILL MCV 79 79 - 97 fL [facility] ACCOUNT BILL MCH 25.9(L) 26.6 - 33.0 pg [facility] ACCOUNT BILL MCHC 32.6 31.5 - 35.7 g/dL [facility] ACCOUNT BILL RDW 14.5 12.3 - 15.4 % [facility] ACCOUNT BILL Platelet Count 436(H) 150 - 379 x10E3/uL [facility] ACCOUNT BILL Granulocytes % 59 % [facility] ACCOUNT BILL Lymphocytes % 30 % [facility] ACCOUNT B[facility] Monocytes % 9 % [facility] ACCOUNT BILL Eosinophils % 1 % [facility] ACCOUNT BILL Basophils % 1 % [facility] ACCOUNT BILL Immature Cells NOT NEEDED [facility] ACCOUNT BILL Comment:Ancillary determined the test is not needed Granulocytes Absolute 5.0 1.4 - 7.0 x10E3/uL [facility] ACCOUNT BILL Lymphocytes Absolute 2.6 0.7 - 3.1 x10E3/uL [facility] ACCOUNT BILL Monocytes Absolute 0.8 0.1 - 0.9 x10E3/uL [facility] ACCOUNT BILL Eosinophils Absolute 0.1 0.0 - 0.4 x10E3/uL [facility] ACCOUNT BILL Basophils Absolute 0.1 0.0 - 0.2 x10E3/uL [facility] ACCOUNT BILL Immature Granulocytes 0 % [facility] ACCOUNT BILL Immature Granulocytes Absolute 0.0 0.0 - 0.1 x10E3/uL [facility] ACCOUNT BILL nRBC NOT NEEDED [facility] ACCOUNT BILL Comment:Ancillary determined the test is not needed Comment Hematology NOT NEEDED [facility] ACCOUNT BILL Comment:Ancillary determined the test is not needed Blood specimen (specimen) BLOOD SPECIMEN / Unknown 06/23/2014 11:10 AM [facility] 06/23/2014 3:32 PM [facility] Narrative Resulting Agency Comment [facility] [address] [id number] Miko Cornelius Jr., MD LAB - HEMATOLOGY ORDERABLES [facility] ACCOUNT BILL * (ABNORMAL) COMPREHENSIVE METABOLIC PANEL (06/23/2014 11:10 AM [facility]) Glucose 81 65 - 99 mg/dL [facility] ACCOUNT BILL BUN 16 6 - 20 mg/dL [facility] ACCOUNT BILL Creatinine 0.75 0.57 - 1.00 mg/dL [facility] ACCOUNT BILL eGFR by MDRD 115 >59 mL/min/1.7 3 [facility] ACCOUNT BILL eGFR by MDRD 133 >59 mL/min/1.7 3 [facility] ACCOUNT BILL BUN/Creatinine Ratio 21(H) 8 - 20 [facility] ACCOUNT BILL Sodium 137 134 - 144 mmol/L [facility] ACCOUNT BILL Potassium 4.4 3.5 - 5.2 mmol/L [facility] ACCOUNT BILL Chloride 101 97 - 108 mmol/L [facility] ACCOUNT BILL CO2 20 18 - 29 mmol/L [facility] ACCOUNT BILL Calcium 9.8 8.7 - 10.2 mg/dL [facility] ACCOUNT BILL Protein Total 8.0 6.0 - 8.5 g/dL [facility] ACCOUNT BILL Albumin 4.6 3.5 - 5.5 g/dL [facility] ACCOUNT BILL Globulin Total 3.4 1.5 - 4.5 g/dL [facility] ACCOUNT BILL Albumin/Globulin Ratio 1.4 1.1 - 2.5 [facility] ACCOUNT BILL Bilirubin Total 0.3 0.0 - 1.2 mg/dL [facility] ACCOUNT BILL Alkaline Phosphatase 79 39 - 117 IU/L [facility] ACCOUNT BILL AST 21 0 - 40 IU/L [facility] ACCOUNT BILL ALT 11 0 - 32 IU/L [facility] ACCOUNT BILL Blood specimen (specimen) BLOOD SPECIMEN / Unknown 06/23/2014 11:10 AM [facility] 06/23/2014 3:32 PM [facility] Narrative Resulting Agency Comment [facility] [place] [id number] [facility] [id number] Miko Cornelius Jr., MD LAB - CHEMISTRY O RDERABLES [facility] ACCOUNT BILL * HCG BLOOD QUALITATIVE - POINT OF CARE (05/31/2014 2:22 PM [facility]) Hcg Qual Serum neg Negative QC Verified Yes Blood specimen (specimen) BLOOD SPECIMEN / Unknown 05/31/2014 2:22 PM [facility] Miko Cornelius Jr., MD LAB - POINT OF CA RE ORDERABLES * RUBEOLA ANTIBODY IGG (02/07/2014 12:45 PM CDT) Measles (Rubeola) Antibody IgG >300.0 AU/mL 02/09/2014 5:18 PM CDT [facility] ([facility]) Comment: INTERPRETIVE INFORMATION: Measles (Rubeola) Antibody, IgG [...] Provider Unknown LAB - CHEMISTRY JIHAN ANNE Performing Organization Address [facility] de Phone Number [facility]) [address] [place] [address] * MUMPS ANTIBODY IGG (02/07/2014 12:45 PM CDT) [facility] Mumps Virus Antibody IgG 21.2 AU/mL 02/09/2014 5:20 PM CDT [facility] ([facility]) Comment: INTERPRETIVE INFORMATION: Mumps Ab, IgG by [...] Provider Unknown LAB - CHEMISTRY JIHAN ANNE Performing Organization Address [facility] Co de Phone Number [facility]) [address] * VARICELLA ZOSTER ANTIBODY IGG (02/07/2014 12:45 PM CDT) [facility] Varicella zoster Virus Antibody IgG 899.6 IV 02/09/2014 6:09 PM CDT [facility] ([facility]) Comment: INTERPRETIVE INFORMATION: VZV Ab, IgG 134 [...] CDT Provider Unknown LAB - CHEMISTRY ORDE DAYANA [facility]) [address] * RUBELLA ANTIBODY IGG (02/07/2014 12:45 PM CDT) [facility] Rubella Antibody IgG Positive - Immune 02/07/2014 8:15 PM CDT [facility] Blood BLOOD SPECIMEN / Unknown Venipuncture / Unknown 02/07/2014 12:45 PM CDT 02/07/2014 6:52 PM CDT Provider Unknown LAB - SEROLOGY ORDER KENYA [facility] [address] [place] [address] * HEPATITIS B SURFACE ANTIBODY (02/07/2014 12:45 PM CDT) [facility] HBsAb Non Reactive Non Reactive 02/07/2014 8:06 PM CDT [facility] Blood BLOOD SPECIMEN / Unknown Venipuncture / Unknown 02/07/2014 12:45 PM CDT 02/07/2014 6:52 PM CDT Provider Unknown LAB - CHEMISTRY RAYMUNDOEsau ANNE [facility] [address] [place] [address] * PATHOLOGY/CYTOLOGY REPORT ORDER (12/15/2013 5:33 PM CDT) Provider Unknown LAB - PATHOLOGY/CYTO LOGY ORDERABLES * (ABNORMAL) HGB HCT PANEL (12/13/2013 6:46 AM CDT) Only the most recent of2 resultswithin the time period is included. Hemoglobin 7.6(L) 12.0 - 15.6 gm/dL 12/13/2013 6:55 AM CDT [facility] Hematocrit 23.7(L) 35.9 - 45.5 % 12/13/2013 6:55 AM CDT [facility] Blood BLOOD SPECIMEN / Unknown Lab Venipuncture / Unknown 12/13/2013 6:46 AM CDT 12/13/2013 6:49 AM CDT Loretta Singh MD LAB - HEMATOLOGY RAYMUNDO KRISHNA [facility] [address] [place] [address] * GROSS + MICRO EXAM (STL) (12/12/2013 12:42 AM CDT) Case Report Surgical Pathology Report Case: [id number] Authorizing Provider: Loretta Singh MD Collected: 12/12/2013 12:42 AM Ordering Location: [facility] Received: 12/12/2013 11:11 AM Pathologist: Shana Whelan MD Specimen: Placenta 3rd Trimester 12/14/2013 4:39 PM CDT [facility] Final Diagnosis Placenta, delivery: - Acute chorioamnionitis - Chorionic vasculitis - Mature chorionic villi - membranes with pigment-containing macrophages consistent with exposure to meconium - Three vessel umbilical cord with acute funisitis KL/scs 12/14/2013 4:39 PM CDT [facility] Clinical History meconium at delivery 12/14/2013 4:39 PM T [facility] Gross Description A. Received in a container of formalin labeled Heather Galan and placenta is a hernandez placenta with attached umbilical cord and membranes. The placental disc measures 16.1 x 15.3 x 3.1 cm. The cord measures 48.5 cm in length, ranges in diameter from 0.9 to 1.3 cm, contains three vessels, and inserts 4.1 cm from the margin. The cord displays hypercoiling with approximately 7 coils per 10 cm. The surface is blue-green and displays the usual vascular pattern. The membranes are thick cloudy and are inserted at the margin. Embedded within the membranes is a hernandez-red gelatinous area that measures 4.6 cm in greatest dimension. The trimmed placenta weight is 580.4 gm. The maternal surface displays focal areas of disruption ranging in greatest dimension from 1.6 to 4.5 cm. Cotyledons are serially sectioned. English Faculty Member sections are submitted as follows: A1 - Umbilical cord, membranes, gelatinous material within membranes, A2 - surface, A3 - Maternal surface. CELESTE/maday 12/14/2013 4:39 PM CDT [facility] Microscopic Description Histologic sections show acute chorioamnionitis at the plate including chorionic vasculitis as well as within the membranes. The membranes also show pigment containing macrophages consistent with exposure to meconium. The three-vessel umbilical cord shows acute inflammation involving the umbilical vein and both umbilical arteries. The chorionic villi are mature without evidence of villitis, infarct or hematoma. KJ/maday 12/14/2013 4:39 PM CDT [facility] Pathology/Cytolo gy ENTIRE PLACENTA / Unknown 12/12/2013 12:42 AM CDT 12/12/2013 11:11 AM CDT Loretta Singh MD LAB - PATHOLOGY/CYTO LOGY ORDERABLES [facility] [address] [place] [id number] * (ABNORMAL) URINALYSIS ROUTINE AUTO (12/11/2013 10:01 PM CDT) Color UA Yellow Straw, Yellow, Dark Yellow 12/11/2013 10:41 PM [facility] Clarity UA Turbid 12/11/2013 10:41 PM [facility] Specific [place] UA 1.018 1.005 - 1.030 12/11/2013 10:41 PM [facility] pH UA 7.0 5.0 - 8.0 pH 12/11/2013 10:41 PM [facility] Protein UA 2+(A) Negative 12/11/2013 10:41 PM [facility] Blood UA 2+(A) Negative 12/11/2013 10:41 PM [facility] Leukocyte UA 1+(A) Negative 12/11/2013 10:41 PM [facility] Nitrite UA Negative Negative 12/11/2013 10:41 PM [facility] Glucose UA Negative Negative 12/11/2013 10:41 PM [facility] Ketone UA 1+(A) Negative 12/11/2013 10:41 PM [facility] Bilirubin UA Negative Negative 12/11/2013 10:41 PM [facility] Urobilinogen UA 0.2 0.1 - 1.0 EU/dL 12/11/2013 10:41 PM [facility] WBC UA Auto 10-20(A) 0-2, 2-5 #/hpf 12/11/2013 10:41 PM [facility] RBC UA Auto 20-50(A) 0-2, 2-5 #/hpf 12/11/2013 10:41 PM [facility] Epithelial Cell UA Auto 5-10(A) 0-2, 2-5 #/hpf 12/11/2013 10:41 PM [facility] Hyaline Casts UA Auto 5-10(A) 0 - 2 #/lpf 12/11/2013 10:41 PM [facility] Urine URINE SPECIMEN OBTAINED BY CLEAN CATCH PROCEDURE / Unknown 12/11/2013 10:01 PM T 12/11/2013 10:25 PM [facility] Loretta Singh MD LAB - URINALYSIS ORD ERABLES [facility] [address] [id number] * (ABNORMAL) URINALYSIS MICROSCOPIC ONLY (12/11/2013 10:01 PM CDT) RBC UA 20-50(A) 0-2, 2-5 # /hpf 12/12/2013 1:08 AM CDT [facility] WBC UA 5-10(A) 0-2, 2-5 # /hpf 12/12/2013 1:08 AM CDT [facility] Bacteria UA 1+(A) None Seen 12/12/2013 1:08 AM CDT [facility] Epithelial Cell UA 2-5 0-2, 2-5 12/12/2013 1:08 AM CDT [facility] Urine URINE SPECIMEN OBTAINED BY CLEAN CATCH PROCEDURE / Unknown 12/11/2013 10:01 PM CDT 12/11/2013 10:25 PM CDT Loretta Singh MD LAB - URINALYSIS ORD ERABLES [facility] [address] [address] * NEURAXIAL BLOCK (12/11/2013 5:08 PM CDT) Narrative Jinny Clemens APRN-CRNA - 12/11/2013 5:08 PM CDT ANAN Lozano 12/11/2013 5:08 PM NEURAXIAL BLOCK Patient Location: OB Pre Procedure Indication: labor analgesia Anticoagulation /Antithrombosis Status Confirmed: Yes Preanesthetic Checklist: patient identified, IV checked, site marked, risks and benefits discussed, surgical consent verified, monitors and equipment checked, pre-op evaluation done, timeout performed, informed consent obtained and questions answered / anesthesia plan accepted Monitors: BP, Pulse Ox and EKG Patient Condition: awake Patient Position: sitting Procedure Block Performed: epidural Prep: Chloraprep Sterile Field: sterile gloves, sterile field established, cap/hat and mask Approach: midline Skin Numbed with: lidocaine 1% Epidural Needle Type: Tuohy Needle Gauge: 17 Needle Length: 3.5 in Placement Site: L2-L3 Number of Attempts: 2 Loss of ResistanceTechnique: saline CSF Aspirated from Catheter: negative Blood Aspirated from Catheter: negative Test Dose: lidocaine 1.5% with 1 200 k epinephrine 3 ml Local Anesthetic: bupivacaine 0.25% 6 ml Epidural additive: fentanyl 100 mcg Events CSF return negative injection not painful no paresthesia no other event Degree of Difficulty: moderate Position Post Procedure: head of bed elevated 30 degrees and left uterine displacement Vital signs monitored and stable throughout. See Anesthesia Intraop record for details. Block Performed by: jinny gates Loretta Singh MD GENERAL ANESTHESIA O RDERABLES * TYPE + SCREEN PANEL (12/11/2013 4:24 PM CDT) Only the most recent of2 resultswithin the time period is included. ABO O 12/11/2013 5:06 PM CDT [facility] Rh Type Positive 12/11/2013 5:06 PM CDT [facility] Comment:History check perfor med. No retype required. Antibody Screen Negative 12/11/2013 5:06 PM CDT [facility] Blood Bank BLOOD SPECIMEN / Unknown Venipuncture / Unknown 12/11/2013 4:24 PM CDT 12/11/2013 4:33 PM CDT Loretta Singh MD LAB - BLOOD BANK ORD ERABLES [facility] [address] [facility] [place] [address], [facility] * BLOOD TYPE VERIFICATION (11/14/2013 8:14 AM CDT) ABO O 11/14/2013 10:24 AM CDT [facility] Rh Type Positive 11/14/2013 10:24 AM CDT [facility] Blood Bank BLOOD SPECIMEN / Unknown Venipuncture / Unknown 11/14/2013 8:14 AM CDT 11/14/2013 8:46 AM CDT Loretta Singh MD LAB - BLOOD BANK ORD ERABLES [facility] [address] * (ABNORMAL) COAGULATION PANEL W D-DIMER (11/14/2013 5:23 AM CDT) PT 10.5 9.3 - 11.4 sec 11/14/2013 5:56 AM CDT [facility] INR 0.99 0.92 - 1.12 11/14/2013 5:56 AM [facility] PTT 27.1 23.0 - 34.0 sec 11/14/2013 5:56 AM [facility] Fibrinogen 404(H) 200 - 400 mg/dL 11/14/2013 5:56 AM [facility] D-Dimer 0.82(H) 0 - 0.5 mg/L FEU 11/14/2013 5:56 AM [facility] Platelet Count 263 153 - 416 x10^9/L 11/14/2013 5:56 AM [facility] Blood BLOOD SPECIMEN / Unknown 11/14/2013 5:23 AM CDT 11/14/2013 5:32 AM CDT Narrative [facility] - 11/14/2013 5:56 AM CDT Elevated results above the normal range may indicate DIC in the appropriate clinical setting. Serial evaluations may yield information regarding the clinical course. Results of this test should always be interpreted in conjunction with the patient's medical history, clin ical presentation and other findings. At the clinical cut-off of 0.50 mg/L FEU the Negative Predictive Value using INNOVANCE D-dimer is 98%. A very low percentage of patients with DVT may yield D-dimer results below the cut-off of 0.50 mg/L FEU. This is known to be prevalent in patients with distal DVT and in rare cases of PE. Aaron Lamar MD LAB - COAGULATION OR DERABLES [facility] [address] [place] [id number] * (ABNORMAL) URINALYSIS ROUTINE W/REFLEX TO CULTURE (08/24/2013 12:49 PM CDT) Color UA Yellow Straw, Yellow, Dark Yellow 08/24/2013 1:13 PM T [facility] Clarity UA Clear 08/24/2013 1:13 PM T [facility] Specific [place] UA 1.018 1.005 - 1.030 08/24/2013 1:13 PM T [facility] pH UA 7.0 5.0 - 8.0 pH 08/24/2013 1:13 PM [facility] Protein UA Negative Negative 08/24/2013 1:13 PM [facility] Blood UA 3+(A) Negative 08/24/2013 1:13 PM [facility] Leukocyte UA Negative Negative 08/24/2013 1:13 PM [facility] Nitrite UA Negative Negative 08/24/2013 1:13 PM [facility] Glucose UA Negative Negative 08/24/2013 1:13 PM [facility] Ketone UA Negative Negative 08/24/2013 1:13 PM [facility] Bilirubin UA Negative Negative 08/24/2013 1:13 PM [facility] Urobilinogen UA 0.2 0.1 - 1.0 EU/dL 08/24/2013 1:13 PM [facility] WBC UA Auto Reflex to manual(A) 0-2, 2-5 #/hpf 08/24/2013 1:13 PM [facility] RBC UA Auto Reflex to manual(A) 0-2, 2-5 #/hpf 08/24/2013 1:13 PM [facility] Epithelial Cell UA Auto Reflex to manual(A) 0-2, 2-5 #/hpf 08/24/2013 1:13 PM [facility] Bacteria UA Auto Reflex to manual(A) None seen 08/24/2013 1:13 PM [facility] Hyaline Casts UA Auto Reflex to manual(A) 0 - 2 #/lpf 08/24/2013 1:13 PM [facility] Reflex Status Culture not indicated 08/24/2013 1:13 PM [facility] Urine URINE SPECIMEN OBTAINED BY CLEAN CATCH PROCEDURE / Unknown Collection / Unknown 08/24/2013 12:49 PM CDT 08/24/2013 12:54 PM T Loretta Singh MD LAB - URINALYSIS ORD ERABLES [facility] [address] [id number] * (ABNORMAL) URINALYSIS MICROSCOPIC ONLY W/REFLEX CULTURE (08/24/2013 12:49 PM T) RBC UA >100(A) 0-2, 2-5 # /hpf 08/24/2013 1:27 PM CDT [facility] WBC UA 2-5 0-2, 2-5 # /hpf 08/24/2013 1:27 PM CDT [facility] Epithelial Cell UA 2-5 0-2, 2-5 08/24/2013 1:27 PM CDT [facility] Urine URINE SPECIMEN OBTAINED BY CLEAN CATCH PROCEDURE / Unknown 08/24/2013 12:49 PM CDT 08/24/2013 12:54 PM CDT Loretta Singh MD LAB - URINALYSIS ORD ERABLES [facility] [address] [address] Care Teams Brush Clearing Laborer Relationship Specialty Start Date End Date Denise Rodriguez APRN-SAM [address] [place] [id number] PCP - General Nurse Practitioner 12/10/21
--- OUTSIDE RECORDS SUMMARY | 2024-06-06 17:42 | XMS_ITS | Encounter Summary ---
Author Organization [facility] Address [address] [place] [address] Care Team Providers Care Development Chemist Name Role Phone Denise Rodriguez Primary Care Provider [phone] Encounter Details Date Type Department Care Team (Late st Contact Info) Description 10/05/2018 UCROO Message Enc [facility] Family & Internal Medicine [facility] [address] [place] [address] Denise Rodriguez FNP [address] [place] [address] RE: FW: Follow Up/Update Social History Tobacco Use Types Packs/Day Years [...] on file Legal Sex Female 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
--- OUTSIDE RECORDS SUMMARY | 2024-06-06 17:42 | XMS_ITS | Encounter Summary ---
Author Organization [facility] Address [address] [place] [address] Care Team Providers Care Commercial Loan Underwriter Name Role Phone Denise Rodriguez Primary Care Provider [phone] Encounter Details Date Type Department Care Team (Late st Contact Info) Description 05/13/2019 Egr Renovationt Message Enc [facility] Family & Internal Medicine [facility] [address] [place] [phone] Denise Rodriguez FNP [address] [place] [address] RE: FW: Follow Up/Update Social History Tobacco [...] on file Legal Sex Female 8:18 AM DEVOPS SOLUTIONS ARCHITECT Gender Identity Not on file Sexual Orientation Straight 03/12/2018 11 :35 AM DEVOPS SOLUTIONS ARCHITECT documented as of this encounter Plan of Treatment Not on file documented as of this encounter Visit Diagnoses Not on filedocumented in this encounter Care Teams Commercial Loan Underwriter Relationship Specialty Start Date End Date Denise Rodriguez FNP [address], [place] [phone] PCP - General FAMILY PRACTICE 03/12/18 documented as of this encounter
--- OUTSIDE RECORDS SUMMARY | 2024-06-06 17:42 | XMS_ITS | Encounter Summary ---
Author Organization [facility] Address [address] [place] [address] Care Team Providers Care Studio Operations Engineer In Charge Name Role Phone Denise Rodriguez Primary Care Provider [phone] Encounter Details Date Type Department Care Team (Late st Contact Info) Description 07/14/[address] [facility] Family & Internal Medicine [facility] [address] [place] [phone] Denise Rodriguez FNP [address] [place] [address] RE: FW: Other Social History Tobacco Use Types Packs/Day Years [...] on file Legal Sex Female 8:18 AM RN FIRST ASSISTANT Gender Identity Not on file Sexual Orientation Straight 03/12/2018 11 :35 AM RN FIRST ASSISTANT documented as of this encounter Plan of Treatment Not on file documented as of this encounter Visit Diagnoses Not on filedocumented in this encounter Care Teams Studio Operations Engineer In Charge Relationship Specialty Start Date End Date Denise Rodriguez FNP [facility] [place] [place], [place] [phone] PCP - General FAMILY PRACTICE 03/12/18 documented as of this encounter
--- OUTSIDE RECORDS SUMMARY | 2024-06-06 17:42 | XMS_ITS | Clinical Summary ---
Author Organization [facility] Address [address] [place] [address] Care Team Providers Care Rubber Compounder Supervisor Name Role Phone Denise Rodriguez COLT Primary Care Provider [phone] Allergies No known active allergies Medications venlafaxine XR (EFFEXOR XR) 37.5 MG 24 hr capsuleIndicati ons:Anxiety and depression Take 1 capsule (37.5 mg total) by mouth daily. 30 capsule 1 10/27/2022 Active ibuprofen (MOTRIN) 800 MG tablet Active cariprazine (VRAYLAR) 1.5 MG capsuleIndicati ons:Bipolar disorder, current episode mixed, moderate (CMS/HCC HHS/HCC),Anxiet y and depression Take 1 capsule (1.5 mg total) by mouth daily. 90 capsule 1 01/23/2023 Active hydrOXYzine (ATARAX) 25 MG tabletIndicatio ns:Generalized anxiety disorder Take 1-2 tablets (25-50 mg total) by mouth nightly as needed for Anxiety. 90 tablet 02/17/2023 Active busPIRone (BUSPAR) 10 MG tabletIndicatio ns:Generalized anxiety disorder Take 1 tablet (10 mg total) by mouth 3 (three) times daily as needed (anxiety/beckham ic attack). 90 tablet 1 02/17/2023 Active methylPREDNISol one, ROSS, (MEDROL DOSEPAK) 4 MG tabletIndicatio ns:Cough 6 TABLETS ON DAY ONE, 5 TABLETS DAY TWO, 4 TABLETS DAY THREE, 3 TABLETS DAY FOUR, 2 TABLETS DAY FIVE, AND 1 TABLET DAY SIX 1 each 03/11/2023 Active Active Problems Problem Noted Date Diagnosed Date -induced hypertension ([facility]) 023 Overview (01/23/2023): cbc, cmp weekly NST twice a week BPP weekly Situational stress 10/27/2022 Vaginal delivery ([facility]) 01/05/2022 Normal course ([facility]) 01/05/2022 Vaginal discharge 05/08/2020 BV (bacterial vaginosis) 05/08/2020 Eczema, unspecified type 05/08/2020 Attention deficit hyperactiv ity disorder (ADHD), predominantly inattentive type 01/13/2019 control counseling 01/13/2019 Low vitamin B12 level 10/08/2018 Bipolar disorder, current ep isode mixed, moderate ([facility]) 10/07/2018 Anxiety and depression 03/12/2018 Class 1 obesity without seri ous comorbidity with body mass index (BMI) of 32.0 to 32.9 in adult 03/12/2018 Vitamin D deficiency 03/12/2018 Menorrhagia with irregular cycle 03/12/2018 Encounter for insertion of i ntrauterine contraceptive device (IUD) 03/12/2018 Resolved Problems Problem Noted Date Diagnosed Date Resolved Date Encounter for induction of labor ([facility]) 01/04/2022 01/05/2022 Screening for malignant neoplasm of cervix 05/31/2019 01/20/2022 IUD (intrauterine device) in place 04/04/2019 10/27/2022 Overview (04/04/2019): shelly Need for immunization against influenza 01/13/2019 12/30/2019 Encounters Date Type Department Care Team Description 05/31/2024 Telephone [facility] Family & Internal Medicine [address] [phone] Denise Rodriguez FNP Medication Request from Last 3 Months Immunizations Name Administration Dates Next Due Fluzone 6 Months+ Quad (0.5 mL Prefilled Syringe) 02/01/2021,02/17/2020,01/13/2019 Fluzone Adult - >Age 3 (Prefilled Syringe) 03/12 Hepatitis B(Engerix B Adult) 07/16/2021,02/02/20,01/04/2021 MODERNA COVID-19 (12+) MRNA, LNP-S, PF, 100 MCG/ 0.5 ML DOSE 05/22/2020,04/24/2020 Tdap (Boostrix) 03/12/2014 Tdap (Generic) 12/12/2013 Family History Medical History Relation Comments Cancer Father basal cell No Known Problems Mother Heart Paternal Grandfather Thyroid Paternal Grandfather Relation Status Comments Father Alive Mother Alive Paternal Grandfather Social History Tobacco Use Types Packs/Day Years Used Date Smoking Tobacco: Never Smokeless Tobacco: Never Tobacco Cessation:Counseling Given: Not Answered Alcohol Use Standard Drinks/Week Comments No 0 (1 standard drink = 0.6 oz pur e alcohol) AUDIT-C Answer Date Recorded Frequency of Alcohol Consumption Monthly or less 03/12/2018 Average Number of Drinks Not on file 018 Frequency of Binge Drinking Not on file 02/19 PHQ-2 Answer Date Recorded Patient Health Questionnaire-2 Score 4 10/27/2022 Depression Answer Date Recor ded Last EPDS Total Score 7 01/06/2022 Last EPDS Self Harm Result 01/06 Comments No Sex and Gender Information Value Date Recorded Sex Assigned at Not on file Legal Sex Female 8:18 AM CONTROL ROOM OPERATOR Gender Identity Not on file Sexual Orientation Straight 03/12/2018 11 :35 AM CONTROL ROOM OPERATOR Last Filed Vital Signs Vital Sign Reading Time Taken Comments Blood Pressure 114/83 01/23/2023 7:27 AM CDT Pulse 79 01/23/2023 7:27 AM CDT Temperature 36.1 C (96.9 F) 01/23/2023 7:27 AM CDT Respiratory Rate 16 01/23/2023 7:27 AM CDT Oxygen Saturation 98% 01/23/2023 7:27 AM CDT Inhaled Oxygen Concentration - - Weight 89.4 kg (197 lb) 01/23/2023 7:27 AM CDT Height 162.6 cm (5' 4 ) 01/23/2023 7:27 AM CDT Body Mass Index 33.81 01/23/2023 7:27 AM CDT Plan of Treatment Health Maintenance Due Date Last Done Comments Cervical Cancer Screening Pap Smear (Age 30 to 64) Every 3 Years 1993 Annual Physical 1996 Hepatitis C 12/10/2011 Cervical Cancer Screening Pap with HPV Testing (Age 30 to 64) Every 5 Years 12/10/2023 Cervical Cancer Screening with HPV 12/10/2023 COVID-19 Vaccine ( season) 2023 05/22/2020, 04/24/2020 Influenza Adult (#1) 2024 02/01/2021, 02/17/2020, 01/13/2019, Additional history exists PHQ-2 (Physician [place]) 04/20/2024 10/27/2022 Hepatitis B Vaccines Completed 07/16/2021, 02/01/2021, 01/04/2021 HPV Vaccines Aged Out No longer eligi ble based on patient's age to complete this topic Meningococcal B Vaccine Aged Out No l onger eligible based on patient's age to complete this topic Meningococcal Vaccine Aged Out No david manny eligible based on patient's age to complete this topic Pneumococcal Vaccine: Pediatrics (0 to 5 Years) and At-Risk Patients (6 to 64 Years) Aged Out No longer eligible based on patient's age to complete this topic RSV Immunizations Under 20 Months Aged Out No longer eligible based on patient's age to complete this topic Insurance [employer] Advance Directives * Full Code (Latest Code Status on File) Date Activated Date Inactivated Comments 01/04/2022 8:33 PM 01/05/2022 4:48 PM Care Teams Rubber Compounder Supervisor Relationship Specialty Start Date End Date Denise Rodriguez FNP [address] [place] [id number] PCP - General FAMILY PRACTICE 03/12/18
--- OUTSIDE RECORDS SUMMARY | 2024-06-06 17:42 | XMS_ITS | Clinical Summary ---
Author Organization [facility] Address [address] [place] [address] Care Team Providers Care Real Estate Office Supervisor Name Role Phone Denise Rodriguez PASCUAL-SAM Primary Care Provider [phone] Source Comments [facility] [employer],non-owned Affiliates and Associated Physician Practices is amultiple site organization consisting of ambulatory clinics and hospital sitesin [place], [place], [place] and [place]. This disclosure is being madepursuant to the Care Everywhere program and may not contain all information available regarding this patient. Last updated 18.[facility] Allergies No known active allergies Medications * Be aware that medications may not be up to date on this document. Alwaysverify current medications with the patient. Medication Sig Dispensed Refills Start Date End Date Status VITAMINS PO Take 1 Tab by mouth once daily. Active ferrous sulfate 325 (65 FE) MG tablet Take 1 Tab by mouth daily with breakfast. 30 Tab 2 12/14/2013 Active Additional Information Patient not taking.Reported on 12/10/2021 oxyCODONE-acetamino phen (PERCOCET) 5-325 MG tablet Take 1 Tab by mouth every 4 hours as needed for Pain. 30 Tab 0 12/14/2013 Active Additional Information Patient not taking.Reported on 12/10/2021 ibuprofen (MOTRIN) 600 MG tablet Take 1 Tab by mouth 4 times daily. 30 Tab 2 12/14/2013 Active Additional Information Patient not taking.Reported on 12/10/2021 sertraline (ZOLOFT) 100 MG tablet Take 1 Tab by mouth once daily. 30 Tab 5 05/31/2014 Active Additional Information Patient not taking.Reported on 12/10/2021 azithromycin (ZITHROMAX) 250 MG tablet Take 2 pills now, then 1 tab daily 6 Tab 0 06/12/2014 Active Additional Information Patient not taking.Reported on 12/10/2021 meloxicam (MOBIC) 7.5 MG tablet Take 1 Tab by mouth 2 times daily. 30 Tab 0 06/14/2014 Active Additional Information Patient not taking.Reported on 12/10/2021 pseudoephedrine (SUDAFED) 30 MG tablet Take 1 Tab by mouth 3 times daily as needed for Nasal Congestion. 30 Tab 0 06/15/2014 Active Additional Information Patient not taking.Reported on 12/10/2021 ALPRAZolam (XANAX) 0.25 MG tablet Take 1 Tab by mouth 3 times daily as needed for Anxiety. 40 Tab 0 06/20/2014 Active Additional Information Patient not taking.Reported on 12/10/2021 amphetamine-dextroa mphetamine XR 24hr (ADDERALL XR) 20 MG capsule Take 1 Cap by mouth once daily. 30 Cap 0 09/22/2014 Active Additional Information Patient not taking.Reported on 12/10/2021 amphetamine-dextroa mphetamine XR 24hr (ADDERALL XR) 20 MG capsule Take 1 Cap by mouth once daily. Do not fill until 30 days after date on script 30 Cap 0 09/22/2014 Active Additional Information Patient not taking.Reported on 12/10/2021 amphetamine-dextroa mphetamine XR 24hr (ADDERALL XR) 20 MG capsule Take 1 Cap by mouth once daily. Do not fill until 60 days after date on script 30 Cap 0 09/22/2014 Active Additional Information Patient not taking.Reported on 12/10/2021 docusate sodium (COLACE) 100 MG capsule Take 1 Cap by mouth 2 times daily as needed for Constipation 30 Cap 2 10/03/2014 Active Additional Information Patient not taking.Reported on 12/10/2021 triamcinolone acetonide (Kenalog) 0.1 % ointmentIndications :Dermatitis Apply to affected area 2 times daily Reasons: Skin Inflammation Active Active Problems No known active problems Immunizations Name Administration Dates Next Due TDAP (7yrs+) 12/12/2013 Family History Medical History Relation Name Comments Negative Family History Other Relation Name Status Comments Brother Alive Father Alive Maternal Grandfather Alive Maternal Grandmother Alive Mother Alive Other Paternal Grandfather Alive Paternal Grandmother Alive Sister Alive Social History Tobacco Use Types Packs/Day Years [...] Mass Index 35.87 12/10/2021 1:04 PM CDT Plan of Treatment Health Maintenance Due Date Last Done Comments PAP SMEAR 1993 HIV SCREENING 2008 HEPATITIS C SCREENING 12/05/2011 HEPATITIS B VACCINE (1 of 3 - 19+ 3-dose series) 2012 DTAP/TDAP/TD VACCINES (2 - Td or Tdap) 12/13/2023 12/12/2013 COVID-19 VACCINE (2023- season) 2023 05/22/2020, 04/24/2020 INFLUENZA VACCINE (#1) 2023 , 02/17/2020, 01/13/2019, Additional history exists DEPRESSION SCREENING 04/20/2024 ZOSTER VACCINE (1 of 2) 12/10/2043 HIB VACCINE Aged Out No longer eligi ble based on patient's age to complete this topic HPV VACCINE Aged Out No longer eligi ble based on patient's age to complete this topic MENINGOCOCCAL (Group B) VACCINE Aged Out No longer eligible based on patient's age to complete this topic MENINGOCOCCAL VACCINE Aged Out No david manny eligible based on patient's age to complete this topic PNEUMOCOCCAL VACCINE Aged Out No long er eligible based on patient's age to complete this topic Advance Directives * Full Code (Latest Code Status on File) Date Activated Date Inactivated Comments 12/11/2013 4:20 PM 12/14/2013 5:27 PM * Full Code Date Activated Date Inactivated Comments 11/14/2013 2:59 AM 11/14/2013 10:26 AM * Full Code Date Activated Date Inactivated Comments 08/24/2013 12:37 PM 08/24/2013 3:09 PM Care Teams Real Estate Office Supervisor Relationship Specialty Start Date End Date Denise Rodriguez APRN-SAM [address] [place] [address] PCP - General Nurse Practitioner 12/10/21
--- OUTSIDE RECORDS SUMMARY | 2024-06-06 17:42 | XMS_ITS | Encounter Summary ---
Author Organization [facility] Health Address [facility] [facility] [place] [address] Care Team Providers Care Internet Sales Manager Name Role Phone Denise Rodriguez APRN-DRAGLINE OPERATOR HELPER Primary Care Provider [phone] Encounter Details Date Type Department Care Team (Late st Contact Info) Description 11/19/2022 Lab Requisition [facility] - DermPath Lab [address] [facility], [place] [phone] Pati Espinoza PA-C [address] [place] [address] Neoplasm of uncertain behavior of skin Social History Tobacco Use Types Packs/Day Years [...] Procedure Name Priority Date/Time Associated Diagnosis Comments DERMATOPATHOLOGY Routine 11/19/2022 3:33 AM CDT Neoplasm of uncertain behavior of skin documented in this encounter Results * DERMATOPATHOLOGY (11/19/2022 3:33 AM CDT) Case Report Dermatopathology Report Case: [id number] Authorizing Provider: Pati Espinoza, Collected: 11/19/2022 03:33 AM JOSSELINE Ordering Location: [facility] DermPath Lab Received: 11/20/2022 01:07 PM Pathologist: [...] characteristic determined by the Dermatopathology Laboratory at [facility], directed by Dr. Jael Cortez. These tests need not be, and therefore are not, approved by the [place] Food and Drug Administration. The tests are used for clinical purposes. Billing Codes Specimen Charges Stain Charges 71791 1 3 2:31 PM CDT DERMATOPATHOLOGY LABORATORY Embedded Images 3 2:31 PM CDT DERMATOPATHOLOGY LABORATORY Pathology/Cytolo gy TISSUE SPECIMEN FROM SKIN / Unknown 11/19/2022 3:33 AM CDT 11/20/2022 1:07 PM CDT Pati Espinoza PA-C LAB - PATHOL OGY/CYTOLOGY ORDERABLES DERMATOPATHOLOGY LABORATORY [facility] - Department of Dermatology [facility] Specialized Medicine [address] [place] [address], [address] [phone] documented in this encounter Visit Diagnoses Diagnosis Neoplasm of uncertain behavior of skin documented in this encounter Care Teams Internet Sales Manager Relationship Specialty Start Date End Date Denise Rodriguez APRN-SAM [address] [place] [id number] PCP - General Nurse Practitioner 12/10/21 documented as of this encounter
--- OUTSIDE RECORDS SUMMARY | 2024-06-06 17:42 | XMS_ITS | Referral Summary ---
Author Organization [facility] Address [address] [facility] [place] [address] Care Team Providers Care Upper Cutter Out Name Role Phone Denise Rodriguez PASCUAL-SAM Primary Care Provider [phone] Source Comments [facility],non-owned Affiliates and Associated Physician Practices is amultiple site organization consisting of ambulatory clinics and hospital sitesin [place], [place], [place] and [place]. This disclosure is being madepursuant to the Care Everywhere program and may not contain all information available regarding this patient. Last updated 18.[facility] [employer] Allergies No known active allergies Medications * [...] Administration Dates Next Due TDAP (7yrs+) 12/12/2013 Social History Tobacco Use Types Packs/Day Years [...] Mass Index 35.87 12/10/2021 1:04 PM CDT Functional Status Functional Status Response Date of [...] person have difficulty concentrating/remembering/making decisions? No 12/11/2013 Plan of Treatment Not on file Advance Directives * Full Code (Latest Code Status on File) Date Activated Date Inactivated Comments 12/11/2013 4:20 PM 12/14/2013 5:27 PM * Full Code Date Activated Date Inactivated Comments 11/14/2013 2:59 AM 11/14/2013 10:26 AM * Full Code Date Activated Date Inactivated Comments 08/24/2013 12:37 PM 08/24/2013 3:09 PM Care Teams Upper Cutter Out Relationship Specialty Start Date End Date Denise Rodriguez APRN-SAM [address] [place] [address] PCP - General Nurse Practitioner 12/10/21
--- OUTSIDE RECORDS SUMMARY | 2024-06-06 17:42 | XMS_ITS | Encounter Summary ---
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
--- OUTSIDE RECORDS SUMMARY | 2024-06-06 17:42 | XMS_ITS | Encounter Summary ---
Author Organization [facility] Address [address] [place] [address] Care Team Providers Care Vice President Education Name Role Phone Denise Rodriguez Primary Care Provider [phone] Encounter Details Date Type Department Care Team (Late st Contact Info) Description 10/01/2018 [employer] Message Enc [facility] Medical Group Family & Internal Medicine [facility] [address] [place] [phone] Denise Rodriguez FNP [address] [place] [address] RE: FW: Medication Questions Social History Tobacco [...] on file Legal 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
--- OUTSIDE RECORDS SUMMARY | 2024-06-06 17:42 | XMS_ITS | Encounter Summary ---
Author Organization [facility] Address [address] [place] [address] Care Team Providers Care Manager Radio Name Role Phone Denise Rodriguez Primary Care Provider [phone] Encounter Details Date Type Department Care Team (Late st Contact Info) Description 12/29/2018 [employer] Message Enc [facility] Medical Group Family & Internal Medicine [facility] [address] [place] [phone] Denise Rodriguez FNP [address] [place] [address] RE: Medication Questions Social History Tobacco Use Types [...] on file Legal 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
--- OUTSIDE RECORDS SUMMARY | 2024-06-06 17:42 | XMS_ITS | Encounter Summary ---
Author Organization [facility] Address [address] [place] [address] Care Team Providers Care Final Installer Inspector Name Role Phone Denise Rodriguez Primary Care Provider [phone] Encounter Details Date Type Department Care Team (Late st Contact Info) Description 10/05/2018 [employer] Message Enc 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
--- OUTSIDE RECORDS SUMMARY | 2024-06-06 17:42 | XMS_ITS | Encounter Summary ---
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 LINE ENGINE INSPECTOR documented in this encounter Plan of Treatment Not on file documented as of this encounter Visit Diagnoses Not on filedocumented in this encounter Care Teams Research And Insights Executive Relationship Specialty Start Date End Date Denise Rodriguez FNP [address] [place] [address] PCP - General FAMILY PRACTICE 03/12/18 documented as of this encounter
== END 2024-06-06 15:23 | disposition home or self-care (01) ==
PROVIDERS: Emergency Provider Nurse Practitioner Family; PCP Nurse Practitioner Family
DX: M54.12 Radiculopathy, cervical region (principal)
CPT/HCPCS: 99203; G0463

== ENCOUNTER 2024-12-09 08:03 | Emergency (ER) | payer OTHER, SELFPAY ==
--- NOTE | 2024-12-09 08:05 | ED_ITS ---
HPI - URI/Sore Throat General Chief Complaint: Upper Respiratory Infection Stated Complaint: Sore Throat Time Seen by Provider: 12/09/24 08:16 Source: patient and RN notes reviewed Mode of arrival: ambulatory Limitations: no limitations History of Present Illness HPI Narrative: 29-year-old female presents with concern for headache and sore throat for 2-3 days. Reports some postnasal drainage. Denies fever, body aches, chills, sweats. Denies upset stomach. She has not taken any medication for her symptoms. MD elicited complaint: sore throat Related Data Home Medications ?Medication ?Instructions ?Recorded ?Confirmed ?Last Taken ?Type No Home Medications 12/09/24 12/09/24 U nknown History Allergies Allergy/AdvReac Type Severity Reaction Status Date / Time No Known Allergies Allergy Verified 12/09/24 08:07 Review of Systems Review of Systems: CONSTITUTIONAL: Denies malaise, chills, sweats, or fever. EYES: Denies visual changes, redness, or discharge. ENT: Denies rhinorrhea, congestion, sinus pain, otalgia. Reports sore throat. CARDIOVASCULAR: Denies chest pain, palpitations, or edema. RESPIRATORY: Denies cough. Denies dyspnea. GASTROINTESTINAL: Denies abdominal pain, nausea, vomiting, diarrhea SKIN: Denies rash or itching. MUSCULOSKELETAL: Denies myalgia. NEUROLOGIC: Reports headache. All systems reviewed & are unremarkable except as noted in HPI and below PMFSH Comments At time of signature, agree with nursing past medical, surgical, social and family history. There is no relevant family history pertinent to the presenting complaint Exam Narrative: GENERAL: Well-appearing, well-nourished, and in no acute distress. HEAD: Normocephalic EYES: PERRLA, conjunctivae clear ENT: Nares clear, turbinates edematous and erythematous, clear discharge. Mucous membranes moist. TM pearly ramirez with dull light reflex bilaterally; no tragal tenderness. Oropharynx not erythematous without lesions. Tonsils not enlarged and without exudate, no drooling, no hoarseness, no trismus, uvula midline. NECK: Supple. No lymphadenopathy CHEST: Clear to auscultation, breath sounds equal. No wheezing, rhonchi, rales, or stridor. No respiratory distress, speaks in full sentences. HEART: Regular rate and rhythm. No murmur heard. SKIN: Warm, dry, no rash. NEURO: Alert and oriented x3. PSYCH: Normal mood and affect Course Course Emergency Course: Patient is aware of diagnosis, understands and agrees to treatment plan. Anticipatory guidance given. Patient agrees to follow-up as directed and is aware of reasons to seek care at the emergency department. Portions of this record may have been created with voice recognition software Level of Care: Express Care Visit Vital Signs Vital signs: Reviewed. MDM - URI/Sore Throat MDM Narrative Medical decision making narrative: Differential diagnosis considered: Griffin virus, strep pharyngitis, allergic rhinitis, upper respiratory tract infection, sinusitis, rhinosinusitis, nasopharyngitis. viral pharyngitis, otitis media, otitis externa, pneumonia, bronchitis, viral cough syndrome, viral syndrome, and influenza. Exam findings show no acute concerns or changes; patient is non-toxic appearing and is in no distress. Patient is appropriate for outpatient treatment and follow-up. Lab Data Attestation: I reviewed the patient's lab results. Critical Care Time Critical Care Time Critical Care Time: No Discharge Plan Discharge Clinical Impression: Upper respiratory infection Patient Disposition: Home Condition: Stable Instructions: Upper Respiratory Infection (ED) Additional Instructions: Your rapid strep swab was negative today at [facility]. A throat culture will be sent to the laboratory for further testing. If the test is positive, you will receive a phone call within 48 hours and an appropriate antibiotic will be initiated at that time. Your symptoms are likely due to a viral illness, which is not treated with antibiotics. Viral symptoms can be present for up to a few weeks. -Alternate Tylenol and Motrin per package directions for fever or pain. -Antihistamine medication such as Benadryl at night and Zyrtec during the day can help improve symptoms. -Eat and drink things that are easy to swallow, like tea or soup, or popsicles to suck on. -Oral rinses such as: Salt water gargles and/or may use topical anesthetic (eg. Chloraseptic spray) or lozenges to relieve dryness or throat pain). -Frequent hand washing or hand coke handling supervisor is one of the best ways to prevent spread of infection. -Follow up with primary care provider in 2-3 days if condition is not improving; or seek ER visit if you have trouble breathing, cannot drink enough fluids, have muffled voice, difficulty opening your mouth, or severe swelling. Patient Language: Icelandic Prescriptions: No Action No Home Medications Follow-up/Referrals: JAYY,PASCUAL SIM [Primary Care Provider] Stand Alone Forms: Work/School Release IP Time of Disposition: 08:25
--- OUTSIDE RECORDS SUMMARY | 2024-12-09 08:05 | XMS_ITS | Encounter Summary ---
Author Organization [facility] Health Address [address] [facility] [place] [address] Care Team Providers Care Legal Document Specialist Name Role Phone Denise Rodriguez APRN-GUEST SERVICE AGENT Primary Care Provider [phone] Encounter Details Date Type Department Care Team (Late st Contact Info) Description 11/19/2022 Lab Requisition [facility] - DermPath Lab [address] [facility] [place] [phone] Pati Espinoza PA-C [address] [place] [address] Neoplasm of uncertain behavior of skin Social History Tobacco Use Types Packs/Day Years Used Date Smoking Tobacco: Never Smokeless Tobacco: Never Alcohol Use Standard Drinks/Week Comments No 0 (1 standard drink = 0.6 oz pur e alcohol) Comments No Sex and Gender Information Value Date Recorded Sex Assigned at Not on file Legal Sex Female 11:01 AM CDT Gender Identity Not on file Sexual Orientation Not on file documented as of this encounter Functional Status * Is person deaf or have serious hearing difficulty? Answer Date of Assessment Author No 12/11/2013 5:22 PM CONORT Denise Pang RN * Is person blind or have serious difficulty seeing? Answer Date of Assessment Author No 12/11/2013 5:22 PM CONORT Denise Pang RN * Does person have serious difficulty walking/climbing stairs? Answer Date of Assessment Author No 12/11/2013 5:22 PM CDT Denise Pang RN * Does person have difficulty dressing/bathing? Answer Date of Assessment Author No 12/11/2013 5:22 PM CDT Denise Pang RN * Does person have difficulty doing errands alone? Answer Date of Assessment Author No 12/11/2013 5:22 PM CDT Denise Pang RN documented as of this encounter Mental Status * Does person have difficulty concentrating/remembering/making decisions? Answer Entry Date Author No 12/11/2013 5:22 PM CDT Denise Pang RN documented in this encounter Plan of Treatment Not on file documented as of this encounter Procedures Procedure Name Priority Date/Time Associated Diagnosis Comments DERMATOPATHOLOGY Routine 11/19/2022 3:33 AM CDT Neoplasm of uncertain behavior of skin documented in this encounter Results * DERMATOPATHOLOGY (11/19/2022 3:33 AM CDT) Case Report Dermatopathology Report Case: [id number] Authorizing Provider: Pati Espinoza, Collected: 11/19/2022 03:33 AM JOSSELINE Ordering Location: [facility] DermPath Lab Received: 11/20/2022 01:07 PM Pathologist: Gonzalez Cortez MD Specimen: Skin, mid tongue 3 2:31 PM CDT DERMATOPATHOLOGY LABORATORY Final Diagnosis Specimen A. 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 The specimen consists of a shave biopsy measuring 3x2x2 mm. Jar 0. 3 2:31 PM CDT DERMATOPATHOLOGY LABORATORY Microscopic Description Specimen A. SKIN, mid tongue: Sections show a proliferation of blood vessels in lobules lined by uniform endothelial cells and by fibrous septa. The stroma is edematous and contains a mixed inflammatory cell infiltrate. The overlying epidermis is eroded. Additional deeper sections were obtained and reviewed. 3 2:31 PM CDT DERMATOPATHOLOGY LABORATORY Disclaimer An external and internal positive and negative controls are appropriate for the histochemical, immunohistochemical and immunofluorescence stain(s) in this case (if any), except where stated explicitly. The performance characteristics of the stain(s) cited in this report were developed and its performance characteristic determined by the Dermatopathology Laboratory at [facility], directed by Dr. Jael Cortez. These tests need not be, and therefore are not, approved by the [place] Food and Drug Administration. The tests are used for clinical purposes. Billing Codes Specimen Charges Stain Charges 24456 1 3 2:31 PM CDT DERMATOPATHOLOGY LABORATORY Embedded Images 3 2:31 PM CDT DERMATOPATHOLOGY LABORATORY Pathology/Cytolo gy TISSUE SPECIMEN FROM SKIN / Unknown 11/19/2022 3:33 AM CDT 11/20/2022 1:07 PM CDT Pati Espinoza PA-C LAB - PATHOLOGY/CYTO LOGY ORDERABLES Final Result DERMATOPATHOLOGY LABORATORY [facility] - Department of Dermatology [address], [address] [phone] documented in this encounter Visit Diagnoses Diagnosis Neoplasm of uncertain behavior of skin documented in this encounter Care Teams Legal Document Specialist Relationship Specialty Start Date End Date Denise Rodriguez APRN-SAM [address] [place] [address] PCP - General Nurse Practitioner 12/10/21 documented as of this encounter
--- OUTSIDE RECORDS SUMMARY | 2024-12-09 08:05 | XMS_ITS | Encounter Summary ---
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 No / Unsure 05/08/2020 2:26 PM MINT MACHINE OPERATOR documented as of this encounter Plan of Treatment Not on file documented as of this encounter Visit Diagnoses Not on filedocumented in this encounter Care Teams Savings Teller Relationship Specialty Start Date End Date Denise Rodriguez FNP [address] [place] [address] PCP - General FAMILY PRACTICE 03/12/18 documented as of this encounter
--- OUTSIDE RECORDS SUMMARY | 2024-12-09 08:05 | XMS_ITS | Encounter Summary ---
Author Organization [facility] Address [address] [place] [address] Care Team Providers Care Scoreboard Operator Name Role Phone Denise Rodriguez COLT Primary Care Provider [phone] Encounter Details Date Type Department Care Team (Late st Contact Info) Description 01/08/2022 Hospital Follow-up Call [facility] [place] [address] Elva Perry, RN Social History [...] 7 01/06/2022 Last EPDS Self Harm Result Unrecognized value Comments No Sex and Gender Information Value Date Recorded Sex Assigned at Not on file 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
--- OUTSIDE RECORDS SUMMARY | 2024-12-09 08:05 | XMS_ITS | Encounter Summary ---
Author Organization 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 No / Unsure 05/08/2020 2:26 PM WEAPONS ENGINEER documented as of this encounter Plan of Treatment Not on file documented as of this encounter Visit Diagnoses Not on filedocumented in this encounter Care Teams Grease Refining Supervisor Relationship Specialty Start Date End Date Denise Rodriguez FNP [address] [place] [address] PCP - General FAMILY PRACTICE 03/12/18 documented as of this encounter
--- OUTSIDE RECORDS SUMMARY | 2024-12-09 08:05 | XMS_ITS | Clinical Summary ---
Author Organization [facility] Address [address] [facility] [place] [address] Care Team Providers Care Glueline Worker Name Role Phone Denise Rodriguez PASCUAL-SAM Primary Care Provider [phone] Source Comments [facility],non-owned Affiliates and Associated Physician Practices is amultiple site organization consisting of ambulatory clinics and hospital sitesin [place], [place] and [place]. This disclosure is being madepursuant to the Care Everywhere program and may not contain all information available regarding this patient. Last updated 18.[facility] Allergies No known active allergies Medications * Be aware that medications may not be up to date on this document. Alwaysverify current medications with the patient. VITAMINS PO Take 1 Tab by mouth once daily. Active ferrous sulfate 325 (65 FE) MG tablet Take 1 Tab by mouth daily with breakfast. 30 Tab 2 4 Active Additional Information Patient not taking.Reported on 12/10/2021 oxyCODONE-aceta minophen (PERCOCET) 5-325 MG tablet Take 1 Tab by mouth every 4 hours as needed for Pain. 30 Tab 0 4 Active Additional Information Patient not taking.Reported on 12/10/2021 ibuprofen (MOTRIN) 600 MG tablet Take 1 Tab by mouth 4 times daily. 30 Tab 2 4 Active Additional Information Patient not taking.Reported on 12/10/2021 sertraline (ZOLOFT) 100 MG tablet Take 1 Tab by mouth once daily. 30 Tab 5 5 Active Additional Information Patient not taking.Reported on 12/10/2021 azithromycin (ZITHROMAX) 250 MG tablet Take 2 pills now, then 1 tab daily 6 Tab 0 5 Active Additional Information Patient not taking.Reported on 12/10/2021 meloxicam (MOBIC) 7.5 MG tablet Take 1 Tab by mouth 2 times daily. 30 Tab 0 5 Active Additional Information Patient not taking.Reported on 12/10/2021 pseudoephedrine (SUDAFED) 30 MG tablet Take 1 Tab by mouth 3 times daily as needed for Nasal Congestion. 30 Tab 0 5 Active Additional Information Patient not taking.Reported on 12/10/2021 ALPRAZolam (XANAX) 0.25 MG tablet Take 1 Tab by mouth 3 times daily as needed for Anxiety. 40 Tab 0 5 Active Additional Information Patient not taking.Reported on 12/10/2021 amphetamine-dex troamphetamine XR 24hr (ADDERALL XR) 20 MG capsule Take 1 Cap by mouth once daily. 30 Cap 0 5 Active Additional Information Patient not taking.Reported on 12/10/2021 amphetamine-dex troamphetamine XR 24hr (ADDERALL XR) 20 MG capsule Take 1 Cap by mouth once daily. Do not fill until 30 days after date on script 30 Cap 0 5 Active Additional Information Patient not taking.Reported on 12/10/2021 amphetamine-dex troamphetamine XR 24hr (ADDERALL XR) 20 MG capsule Take 1 Cap by mouth once daily. Do not fill until 60 days after date on script 30 Cap 0 5 Active Additional Information Patient not taking.Reported on 12/10/2021 docusate sodium (COLACE) 100 MG capsule Take 1 Cap by mouth 2 times daily as needed for Constipation 30 Cap 2 5 Active Additional Information Patient not taking.Reported on 12/10/2021 triamcinolone acetonide (Kenalog) 0.1 % ointmentIndicat ions:Dermatitis Apply to affected area 2 times daily Reasons: Skin Inflammation Active Active Problems No known active problems Immunizations Immunization Administration Dates Next Due TDAP (7yrs+) 12/12/2013 [...] 1:04 PM CDT Height 162.6 cm (5' 4) 12/10/2021 1:04 PM CDT Body Mass Index 35.87 12/10/2021 1:04 PM CDT Plan of Treatment Health Maintenance Due Date Last Done Comments HIV SCREENING 2008 HEPATITIS C SCREENING 12/05/2011 HEPATITIS B VACCINE (1 of 3 - 19+ 3-dose series) 2012 PAP SMEAR 2014 HPV VACCINE (1 - 3-dose SCDM series) 2020 DTAP/TDAP/TD VACCINES (2 - Td or Tdap) 12/13/2023 12/12/2013 COVID-19 VACCINE (3 - 2023- season) 2023 05/22/2020, 04/24/2020 DEPRESSION SCREENING 04/20/2024 INFLUENZA VACCINE (#1) 2024 , 02/17/2020, 01/13/2019, Additional history exists ZOSTER VACCINE (1 of 2) 12/10/2043 HIB VACCINE Aged Out No longer eligi ble based on patient's age to complete this topic MENINGOCOCCAL (Group B) VACCINE SHARED DECISION-MAKING Aged Out No longer eligible based on patient's age to complete this topic MENINGOCOCCAL GROUPS A/C/Y/W VACCINE Aged Out No longer eligible based on patient's age to complete this topic PNEUMOCOCCAL VACCINE Aged Out No long er eligible based on patient's age to complete this topic Insurance AET[employer] Advance Directives * Full Code (Latest Code Status on File) Date Activated Date Inactivated Comments 12/11/2013 4:20 PM 12/14/2013 5:27 PM * Full Code Date Activated Date Inactivated Comments 11/14/2013 2:59 AM 11/14/2013 10:26 AM * Full Code Date Activated Date Inactivated Comments 08/24/2013 12:37 PM 08/24/2013 3:09 PM Care Teams Glueline Worker Relationship Specialty Start Date End Date Denise Rodriguez APRN-CNP [address] [place] [phone] PCP - General Nurse Practitioner 12/10/21
--- OUTSIDE RECORDS SUMMARY | 2024-12-09 08:05 | XMS_ITS | Encounter Summary ---
Author Organization [facility] Address [address] [place] [address] Care Team Providers Care Diamond Setter Name Role Phone Denise Rodriguez Primary Care Provider [phone] Encounter Details Date Type Department Care Team (Late st Contact Info) Description 04/09/2020 [facility] Message Enc [facility] Medical Group Family & Internal Medicine [facility] [place] [address] [place] [address] Denise Rodriguez FNP [address] [place] [address] RE: Test Results Social History [...] on file Legal Sex Female 8:18 AM HAND STAMPER Gender Identity Not on file Sexual Orientation Straight 03/12/2018 11 :35 AM HAND STAMPER documented as of this encounter Progress Notes * Casey Dias DO - 04/11/2020 11:50 AM CST As long as there's no chance for , can do Macrobid 100 mg BID for 7 days. STAMPER * Casey Dias DO - 04/09/2020 4:11 PM CST Need to see these results prior to making decision. STAMPER documented in this encounter Plan of Treatment Not on file documented as of this encounter Visit Diagnoses Diagnosis Dysuria- Primary documented in this encounter Care Teams Diamond Setter Relationship Specialty Start Date End Date Denise Rodriguez FNP [address] [place] [address] PCP - General FAMILY PRACTICE 03/12/18 documented as of this encounter
--- OUTSIDE RECORDS SUMMARY | 2024-12-09 08:05 | XMS_ITS | Encounter Summary ---
Author Organization [facility] Address [address] [place] [address] Care Team Providers Care Family Preservation Worker Name Role Phone Denise Rodriguez COLT Primary Care Provider [phone] Encounter Details Date Type Department Care Team (Late st Contact Info) Description 04/16/2020 [place] Message Enc [facility] Medical Group Family & Internal Medicine [facility] [address] [place] [address] Casey Dias DO [address] [place], [place] [phone] RE: Test Results Social History Tobacco Use [...] on file Legal Sex Female 8:18 AM TREATMENT PLANT MECHANIC Gender Identity Not on file Sexual Orientation Straight 03/12/2018 11 :35 AM TREATMENT PLANT MECHANIC documented as of this encounter Progress Notes * Casey Dias DO - 04/17/2020 11:08 AM CST This does happen at times. I'd recommend a booster followed by an anti-HBs titer one month after vaccination. TMENT PLANT MECHANIC * Casey Dias DO - 04/16/2020 4:09 [...] and 6 months if she is unsure. TMENT PLANT MECHANIC documented in this encounter Plan of Treatment Not on file documented as of this encounter Visit Diagnoses Diagnosis Incomplete immunization status- Primary documented in this encounter Care Teams Family Preservation Worker Relationship Specialty Start Date End Date Denise Rodriguez FNP [address] [place] [address] PCP - General FAMILY PRACTICE 03/12/18 documented as of this encounter
--- OUTSIDE RECORDS SUMMARY | 2024-12-09 08:05 | XMS_ITS | Encounter Summary ---
Author Organization [facility] Address [facility] [facility] [place] [address] Care Team Providers Care Manager Research Name Role Phone Adryan Duran MD, Miko Roldan Primary Care Provider [phone] Denise Rodriguez Primary Care Provider [phone] Encounter Details Date Type Department Care Team (Late st Contact Info) Description 02/07/2014 Lab Requisition [facility] [address] [place] [address] Unknown, Provider Social History Tobacco Use Types [...] 5:22 PM CDT Denise Pang RN * Is person blind [...] Date Author No 12/11/2013 5:22 PM CDT Deinse Pang RN documented in this encounter Plan [...] ZOSTER ANTIBODY IGG (02/07/2014 12:45 PM CDT) [facility] Varicella zoster Virus Antibody IgG 899.6 IV 02/09/2014 6:09 PM CDT [facility] ([facility]) Comment: INTERPRETIVE INFORMATION: VZV Ab, IgG 134 [...] PM CDT Provider Unknown LAB - CHEMISTRY ORDERABLES Katina l Result Performing Organization Address City/[facility] Co de Phone Number [facility]) [address] * RUBEOLA ANTIBODY IGG (02/07/2014 12:45 PM CDT) Measles (Rubeola) Antibody IgG >300.0 AU/mL 02/09/2014 5:18 PM CDT [facility] ([facility]) Comment: INTERPRETIVE INFORMATION: Measles (Rubeola) Antibody, IgG [...] PM CDT Provider Unknown LAB - CHEMISTRY ORDERABLES Katina l Result Performing Organization Address City/[facility] Co de Phone Number [facility]) [address] * MUMPS ANTIBODY IGG (02/07/2014 12:45 PM CDT) Mumps Virus Antibody IgG 21.2 AU/mL 02/09/2014 5:20 PM CDT [facility] ([facility]) Comment: INTERPRETIVE INFORMATION: Mumps Ab, IgG by [...] 12:45 PM CDT 02/07/2014 6:52 PM CDT us Provider Unknown LAB - CHEMISTRY ORDERABLES Katina l Result [facility] ([facility]) [address] [place] [address] * RUBELLA ANTIBODY IGG (02/07/2014 12:45 PM CDT) Pathologist [facility] Rubella Antibody IgG Positive - Immune 02/07/2014 8:15 PM CDT [facility] Blood BLOOD SPECIMEN / Unknown Venipuncture / Unknown 02/07/2014 12:45 PM CDT 02/07/2014 6:52 PM CDT Provider Unknown LAB - SEROLOGY ORDERABLES Final Result Performing Organization Address [facility] Co de Phone Number [facility] [address] [place] [address] * HEPATITIS B SURFACE ANTIBODY (02/07/2014 12:45 PM CDT) Pathologist [facility] HBsAb Non Reactive Non Reactive 02/07/2014 8:06 PM CDT [facility] Blood BLOOD SPECIMEN / Unknown Venipuncture / Unknown 02/07/2014 12:45 PM CDT 02/07/2014 6:52 PM CDT Provider Unknown LAB - CHEMISTRY ORDERABLES Katina l Result Performing Organization Address [facility] Co de Phone Number [facility] [address] [place] [address] documented in this encounter Visit Diagnoses Not on filedocumented in this encounter Care Teams Manager Research Relationship Specialty Start Date End Date Miko Cornelius Jr., MD [address] [place] [address] PCP - General Internal Medicine 05/31/14 12/09/21 Denise Rodriguez APRN-SAM [address] [place] [address] PCP - General Nurse Practitioner 12/10/21 documented as of this encounter
--- OUTSIDE RECORDS SUMMARY | 2024-12-09 08:05 | XMS_ITS | Encounter Summary ---
Author Organization [facility] Address [address] [place] [address] Care Team Providers Care Cook Cashier Food Prep Name Role Phone Denise Rodriguez Primary Care Provider [phone] Encounter Details Date Type Department Care Team (Late st Contact Info) Description 04/21/2019 [employer]iset Message Enc [facility] Medical Group Family & Internal Medicine [facility] [address] [place] [address] Denise Rodriguez FNP [address] [place] [address] RE: FW: Medication Questions Social [...] on file Legal Sex Female 8:18 AM ATOMIC PHYSICS TEACHER Gender Identity Not on file Sexual Orientation Straight 03/12/2018 11 :35 AM ATOMIC PHYSICS TEACHER documented as of this encounter Progress Notes * COLT [place] - 04/22/2019 1:49 PM CST Medrol dose pack Tessalon perels 100 mg tid prn cough dsp 30 Fluconazole 150 mg now and may repeat in 72 hours dsp 2 tabs. IC PHYSICS TEACHER documented in this encounter Plan of Treatment Not on file documented as of this encounter Visit Diagnoses Not on filedocumented in this encounter Care Teams Cook Cashier Food Prep Relationship Specialty Start Date End Date Denise Rodriguez FNP [address] [place] [address] PCP - General FAMILY PRACTICE 03/12/18 documented as of this encounter
--- OUTSIDE RECORDS SUMMARY | 2024-12-09 08:06 | XMS_ITS | Encounter Summary ---
Author Organization [facility] Address [address] [place] [address] Care Team Providers Care Manager Social Media Name Role Phone Denise Rodriguez Primary Care Provider [phone] Encounter Details Date Type Department Care Team (Late st Contact Info) Description 10/05/2018 Kranem Message Enc [facility] Medical Group Family & Internal Medicine [facility] [address] [place] [address] Denise Rodriguez FNP [address] [place] [address] RE: FW: Follow Up/Update Social History Tobacco [...] on file Legal Sex Female 8:18 AM PLANT AND EQUIPMENT WORKER Gender Identity Not on file Sexual Orientation Straight 03/12/2018 11 :35 AM PLANT AND EQUIPMENT WORKER documented as of this encounter Plan of Treatment Not on file documented as of this encounter Visit Diagnoses Not on filedocumented in this encounter Care Teams Manager Social Media Relationship Specialty Start Date End Date Denise Rodriguez FNP [address] [place], [place] [phone] PCP - General FAMILY PRACTICE 03/12/18 documented as of this encounter
--- OUTSIDE RECORDS SUMMARY | 2024-12-09 08:06 | XMS_ITS | Encounter Summary ---
Author Organization [facility] Address [address] [place] [address] Care Team Providers Care Customer Experience Analyst Name Role Phone Denise Rodriguez Primary Care Provider [phone] Encounter Details Date Type Department Care Team (Late st Contact Info) Description 10/05/2018 Groupiter Message Enc [facility] Medical Group Family & Internal Medicine [facility] [place] [address] [place] [address] Denise Rodriguez FNP [address] [place] [address] RE: FW: Follow Up/Update Social History Tobacco [...] on file Legal Sex Female 8:18 AM MEDICAL TERRITORY MANAGER Gender Identity Not on file Sexual Orientation Straight 03/12/2018 11 :35 AM MEDICAL TERRITORY MANAGER documented as of this encounter Plan of Treatment Not on file documented as of this encounter Visit Diagnoses Not on filedocumented in this encounter Care Teams Customer Experience Analyst Relationship Specialty Start Date End Date Denise Rodriguez FNP [address] [place], [place] [phone] PCP - General FAMILY PRACTICE 03/12/18 documented as of this encounter
--- OUTSIDE RECORDS SUMMARY | 2024-12-09 08:06 | XMS_ITS | Encounter Summary ---
Author Organization [facility] Address [address] [place] [address] Care Team Providers Care Business Account Manager Name Role Phone Denise Rodriguez Primary Care Provider [phone] Encounter Details Date Type Department Care Team (Late st Contact Info) Description 05/13/[address] [facility] Medical [facility] Family & Internal Medicine [facility] [address] [place] [phone] Denise Rodriguez FNP [address] [place] [address] RE: FW: Follow Up/Update Social History Tobacco [...] on file Legal Sex Female 8:18 AM SOLUTIONS SPECIALIST Gender Identity Not on file Sexual Orientation Straight 03/12/2018 11 :35 AM SOLUTIONS SPECIALIST documented as of this encounter Plan of Treatment Not on file documented as of this encounter Visit Diagnoses Not on filedocumented in this encounter Care Teams Business Account Manager Relationship Specialty Start Date End Date Denise Rodriguez FNP [address] [place], [place] [id number] PCP - General FAMILY PRACTICE 03/12/18 documented as of this encounter
--- OUTSIDE RECORDS SUMMARY | 2024-12-09 08:06 | XMS_ITS | Encounter Summary ---
Author Organization [facility] Address [address] [place] [address] Care Team Providers Care Scientific Technical Writer Name Role Phone Denise Rodriguez Primary Care Provider Encounter Details Date Type Department Care Team (Late st Contact Info) Description 10/01/2018 [employer] Message Enc [facility] Family & Internal Medicine [facility] [address] [place] [phone] Denise Rodriguez FNP [address] [place] [address] RE: FW: Medication Questions Social History Tobacco [...] on file Legal Sex Female 8:18 AM ASSISTANT SALES MANAGER Gender Identity Not on file Sexual Orientation Straight 03/12/2018 11 :35 AM ASSISTANT SALES MANAGER documented as of this encounter Plan of Treatment Not on file documented as of this encounter Visit Diagnoses Not on filedocumented in this encounter Care Teams Scientific Technical Writer Relationship Specialty Start Date End Date Denise Rodriguez FNP [address] [place], [place] [phone] PCP - General FAMILY PRACTICE 03/12/18 documented as of this encounter
--- OUTSIDE RECORDS SUMMARY | 2024-12-09 08:06 | XMS_ITS | Clinical Summary ---
Author Organization [facility] Address [address] [place] [address] Care Team Providers Care Cocoa Bean Roaster Name Role Phone Denise Rodriguez COLT Primary Care Provider [phone] Allergies No known active allergies Medications venlafaxine [...] Problem Noted Date Diagnosed Date -induced hypertension ([facility]) 023 Overview (01/23/2023): cbc, cmp weekly NST twice a week BPP weekly Situational stress 10/27/2022 Vaginal delivery ([facility]) 01/05/2022 Normal course ([facility]) 01/05/2022 Vaginal discharge 05/08/2020 BV (bacterial vaginosis) 05/08/2020 Eczema, unspecified type 05/08/2020 Attention deficit hyperactiv ity disorder (ADHD), predominantly inattentive type 01/13/2019 control counseling 01/13/2019 Low vitamin B12 level 10/08/2018 Bipolar disorder, current ep isode mixed, moderate ([facility]) 10/07/2018 Anxiety and depression 03/12/2018 Class 1 obesity without seri ous comorbidity with body mass index (BMI) of 32.0 to 32.9 in adult 03/12/2018 Vitamin D deficiency 03/12/2018 Menorrhagia with irregular cycle 03/12/2018 Encounter for insertion of i ntrauterine contraceptive device (IUD) 03/12/2018 Resolved Problems Problem Noted Date Diagnosed Date Resolved Date Encounter for induction of labor ([facility]) 01/04/2022 01/05/2022 Screening for malignant neoplasm of cervix 05/31/2019 01/20/2022 IUD (intrauterine device) in place 04/04/2019 10/27/2022 Overview (04/04/2019): mirena Need for immunization against influenza 01/13/2019 12/30/2019 Immunizations Immunization Administration Dates Next Due Fluzone 6 Months+ Quad (0.5 mL Prefilled Syringe) 02/01/2021,02/17/2020,01/13/2019 Fluzone Adult - >Age 3 (Prefilled Syringe) 03/12 Hepatitis B(Engerix B Adult) 07/16/2021,02/02/20 21,01/04/2021 MODERNA COVID-19 (12+) MRNA, LNP-S, PF, 100 [...] on file Legal Sex Female 8:18 AM CAMELID FIBER SORTER Gender Identity Not on file Sexual Orientation Straight 03/12/2018 11 :35 AM CAMELID FIBER SORTER Last Filed Vital Signs Vital Sign Reading [...] 7:27 AM CDT Height 162.6 cm (5' 4) 01/23/2023 7:27 AM CDT Body Mass Index 33.81 01/23/2023 7:27 AM CDT Plan of Treatment Health Maintenance Due Date Last Done Comments Cervical Cancer Screening Pa p Smear (Age 30 to 64) Every 3 Years 1993 Annual Physical 1996 Hepatitis C 12/10/2011 HPV Vaccines (1 - 3-dose SCD M series) 2020 Cervical Cancer Screening Pa p with HPV Testing (Age 30 to 64) Every 5 Years 12/10/2023 Cervical Cancer Screening wi HPV 12/10/2023 COVID-19 Vaccine (2023- 5 season) 2023 05/22/2020, 04/24/2020 PHQ-2 (Physician [place]) 04/20/2024 Hepatitis B Vaccines Completed 07/16/2021, 02/01/2021, 01/04/2021 Meningococcal B Vaccine Aged Out No l onger eligible based on patient's age to complete this topic Meningococcal Vaccine Aged Out No david manny eligible based on patient's age to complete this topic Pneumococcal Vaccine: Pediatrics (0 to 5 Years) and At-Risk Patients (6 to 49 Years) Aged Out No longer eligible b ased on patient's age to complete this topic RSV Immunizations Under 20 Months Aged Out No longer eligible b ased on patient's age to complete this topic Insurance [employer] [place] [address] [place] [address] Advance Directives * Full Code (Latest Code Status on File) Date Activated Date Inactivated Comments 01/04/2022 8:33 PM 01/05/2022 4:48 PM Care Teams Cocoa Bean Roaster Relationship Specialty Start Date End Date Denise Rodriguez FNP [address] [place] [id number] PCP - General FAMILY PRACTICE 03/12/18
--- OUTSIDE RECORDS SUMMARY | 2024-12-09 08:06 | XMS_ITS | Encounter Summary ---
Author Organization [facility] Address [address] [place] [address] Care Team Providers Care Supply Chain Director Name Role Phone Denise Rodriguez Primary Care Provider [phone] Encounter Details Date Type Department Care Team (Late st Contact Info) Description 07/14/2018 [employer] Message Enc [facility] Medical Group Family & Internal Medicine [facility] [address] [place] [phone] Denise Rodriguez FNP [address] [place] [address] RE: FW: Other Social History Tobacco Use [...] on file Legal Sex Female 8:18 AM WIRE MACHINE CUTTER Gender Identity Not on file Sexual Orientation Straight 03/12/2018 11 :35 AM WIRE MACHINE CUTTER documented as of this encounter Plan of Treatment Not on file documented as of this encounter Visit Diagnoses Not on filedocumented in this encounter Care Teams Supply Chain Director Relationship Specialty Start Date End Date Denise Rodriguez FNP [facility] [place], [place] [phone] PCP - General FAMILY PRACTICE 03/12/18 documented as of this encounter
--- OUTSIDE RECORDS SUMMARY | 2024-12-09 08:06 | XMS_ITS | Encounter Summary ---
Author Organization [facility] Address [address] [place] [address] Care Team Providers Care Hub Borer Name Role Phone Denise Rodriguez Primary Care Provider [phone] Encounter Details Date Type Department Care Team (Late st Contact Info) Description 12/29/2018 [employer] Message Enc [facility] Family [facility] Internal Medicine [facility] [address] [place] [phone] Denise Rodriguez FNP [address] [place] [address] RE: Medication Questions Social History Tobacco Use [...] on file Legal Sex Female 8:18 AM HEMMER CHAINSTITCH Gender Identity Not on file Sexual Orientation Straight 03/12/2018 11 :35 AM HEMMER CHAINSTITCH documented as of this encounter Plan of Treatment Not on file documented as of this encounter Visit Diagnoses Not on filedocumented in this encounter Care Teams Hub Borer Relationship Specialty Start Date End Date Denise Rodriguez FNP [facility] [place], [place] [phone] PCP - General FAMILY PRACTICE 03/12/18 documented as of this encounter
--- OUTSIDE RECORDS SUMMARY | 2024-12-09 08:06 | XMS_ITS | Encounter Summary ---
Author Organization [facility] Address [address] [place] [address] Care Team Providers Care Therapist Radiation Name Role Phone Denise Rodriguez Primary Care Provider [phone] Encounter Details Date Type Department Care Team (Late st Contact Info) Description 04/21/2019 [employer] Message Enc [facility] Medical Group Family & Internal Medicine [facility] [address] [place] [phone] Denise Rodriguez FNP [address] [place] [address] Medication Questions Social History Tobacco Use Types [...] on file Legal Sex Female 8:18 AM PHOTOGRAPHIC EQUIPMENT MECHANIC Gender Identity Not on file Sexual Orientation Straight 03/12/2018 11 :35 AM PHOTOGRAPHIC EQUIPMENT MECHANIC documented as of this encounter Plan of Treatment Not on file documented as of this encounter Visit Diagnoses Not on filedocumented in this encounter Care Teams Therapist Radiation Relationship Specialty Start Date End Date Denise Rodriguez FNP [facility] [place], [place] [phone] PCP - General FAMILY PRACTICE 03/12/18 documented as of this encounter
--- OUTSIDE RECORDS SUMMARY | 2024-12-09 08:06 | XMS_ITS | Encounter Summary ---
Author Organization [facility] Address [address] [place] [address] Care Team Providers Care Microwave Technician Name Role Phone Denise Rodriguez Primary Care Provider [phone] Encounter Details Date Type Department Care Team (Late st Contact Info) Description 08/10/2018 [employer] Message Enc [facility] Medical Group Family & Internal Medicine [facility] [address] [place] [phone] Denise Rodriguez FNP [address] [place] [address] RE: FW: Medication Questions Social History Tobacco [...] on file Legal 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
[2024-12-09 08:16] VITALS: BP 136/85; PULSE 66; RESP 18; TEMP 36.3; O2SAT 100
[2024-12-09 08:25] LABS: EDSTREPNEGPOS1 Negative (Negative)
== END 2024-12-09 08:29 | disposition home or self-care (01) ==
PROVIDERS: Emergency Provider Nurse Practitioner; PCP Nurse Practitioner Family
DX: J06.9 Acute upper respiratory infection, unspecified (principal)
CPT/HCPCS: 87081; 87880; 99213; G0463